=== PATIENT | female | born 1960 | race Caucasian/White ===

== ENCOUNTER → 2019-12-09 08:04 | Outpatient (BNVA) | payer SELFPAY | PROVIDERS: Visit Provider Internal Medicine | DX: Z76.89 Persons encountering health services in other specified circumstances (principal) ==

== ENCOUNTER 2021-09-09 17:25 | Inpatient (IN) | payer OTHER, SELFPAY ==
--- NOTE | ~2021-09-09 | CT_ITS ---
EXAMINATION: CT ABDOMEN AND PELVIS WITHOUT CONTRAST CLINICAL INFORMATION: Left-sided abdominal pain COMPARISON: None TECHNIQUE: Multidetector volumetric imaging was performed from the superior aspect of the liver through the pubic symphysis. Sagittal and coronal reformatted images were obtained on the technologist's workstation. This CT examination was performed using dose optimization techniques as appropriate, variously including the following: *Automated exposure control *Adjustment of mA and/or kV according to patient size (this includes techniques or standardized protocols for targeted exams where dose is matched to indication/reason for exam; i.e. extremities or head) *Use of iterative reconstruction technique DLP: 1299 mGy-cm FINDINGS: LUNG BASES: The visualized lung bases are unremarkable. LIVER, GALLBLADDER, AND BILIARY TREE: The liver is normal in size, shape, and attenuation. No focal hepatic lesion or biliary ductal dilatation is present. Minimal hypoattenuation in the gallbladder lumen. This could represent small stones. No wall thickening or adjacent inflammation. PANCREAS: Unremarkable. SPLEEN: Unremarkable. ADRENAL GLANDS: Unremarkable. KIDNEYS AND URETERS: The kidneys are normal in size, shape, and attenuation. There is mild left hydronephrosis. There is perinephric stranding. There is a 0.4 cm calculus in the left ureteropelvic junction, 15 cm from the posterior axillary line. No right-sided calculi. The ureters are decompressed. BLADDER: Decompressed with no gross abnormality. GASTROINTESTINAL TRACT: Postsurgical changes of gastric sleeve. Normal caliber small bowel. No obstruction. Normal appendix. No colonic wall thickening or inflammation. No free air or free fluid. ABDOMINAL WALL: No significant hernia is appreciated. LYMPH NODES: Normal. VASCULAR: Normal caliber aorta with mild atherosclerotic calcification. PELVIC VISCERA: The uterus and adnexa are unremarkable. OSSEOUS STRUCTURES: No acute or suspicious osseous abnormality. Mild degenerative changes throughout the spine. Vacuum disc phenomenon at L5-S1. CT/CT abdomen pelvis wo con IMPRESSION: Mild left hydronephrosis with a 0.4 cm calculus at the left ureteropelvic junction. Likely small stones in the gallbladder lumen. Fleischner guidelines were followed.
[2021-09-09 17:32] VITALS: BP 156/70; PULSE 73; RESP 18; TEMP 37; O2SAT 97; BMI 41.9
[2021-09-09 19:05] LABS: Basophils Absolute Auto 0.1 X10*3/uL (0.0-0.2); Basophils Percent Auto 0.4 % (0-2); Eosinophils Percent Auto 0.1 % (0-4); Hematocrit 42.9 % (37.0-47.0); Hemoglobin 14.4 g/dl (12.0-16.0); Imm Gran Abs Auto 0.06 X10*3/uL (0.00-0.03); Imm Gran Pct Auto 0.4 % (0.0-0.4); Lymphocytes Absolute Auto 0.4 X10*3/uL (1.2-4.9); Lymphocytes Percent Auto 2.5 % (20-40); MANUAL DIFF FLAG SCAN; Mean Corpuscular HGB Conc 33.6 g/dl (31.0-35.0); Mean Corpuscular Hemoglobin 31.6 pg (27.0-33.0); Mean Corpuscular Volume 94.3 fL (80.0-98.0); Mean Platelet Volume 10.3 fL (9.4-12.3); Monocytes Absolute Auto 0.2 X10*3/uL (0.1-1.2); Monocytes Percent Auto 1.7 % (2-11); Neutrophils Absolute Auto 13.2 x10*3/uL (2.0-8.3); Neutrophils Percent Auto 94.9 % (45-73); Platelet Count 131 X10*3/uL (160-400); Red Blood Count 4.55 X10*6/uL (4.20-5.50); Red Cell Distribution Width 12.7 % (11.0-16.0); SCAN SMEAR FLAG 1; White Blood Count 13.9 X10*3/uL (4.8-10.8)
[2021-09-09 19:25] LABS: Alanine Aminotransferase 20 U/L (0-31); Alkaline Phosphatase 115 U/L (39-117); Anion Gap 14 (12-20); Aspartate Amino Transferase 27 U/L (5-31); Bilirubin Total 1.5 mg/dL (0.0-1.0); Blood Urea Nitrogen 19 mg/dL (9-16); Calcium 9.2 mg/dL (8.4-10.2); Carbon Dioxide 27 mmol/L (22-29); Chloride 104 mmol/L (96-108); Creatinine Clr Calc Pharmacy 61.2; Estimated Glomerular Filt Rate 43; Glucose Random 93 mg/dL (60-115); Lipase 7 U/L (8-78); Potassium 4.5 mmol/L (3.3-5.1); Sodium 140 mmol/L (135-145); Total Protein 6.5 g/dL (6.5-8.0)
[2021-09-09 19:31] LABS: SLIDE REVIEW VERIFIED
[2021-09-09 20:26] LABS: Appearance Urine CLOUDY; Color Urine DK YELLOW; Glucose Urine UA NEG (NEG); Leukocyte Esterase Urine 2+ (NEG); Nitrite Urine POS (NEG); Specific Gravity - Urine 1.015 (1.005-1.025); UACC Culture Trigger YES; Urine Blood 3+ (NEG); Urine Ketones 15 MG/DL (NEG); Urine Protein 1+ MG/DL (NEG-TRACE)
[2021-09-09 20:34] LABS: Bacteria Urine 4+ /LPF; Mucus Urine 2+ /LPF; RBC Urine 30-49 /HPF (0); Squamous Epithelial Cell Urine 2+ /LPF; WBC Clumps Urine NOTED; WBC Urine 50-75 /HPF (0-4)
[2021-09-09 21:32] VITALS: BP 122/60; PULSE 80; RESP 18; TEMP 36.5; O2SAT 95
--- NOTE | 2021-09-09 21:56 | ED.ABDPAIN ---
HPI - Abdominal Pain General Chief Complaint: Abdominal Pain Stated Complaint: Abd pain radiating to back Time Seen by Provider: 09/09/21 21:35 Source: patient and family (Sister) Mode of arrival: ambulatory History of Present Illness HPI narrative: 61-year-old female with history of hypertension presents with onset of left-sided abdominal pain since this morning at approximately 07:30 with radiation into the back denies any urinary symptoms but has had associated nausea and chills. Patient states that the pain became so prominent, crampy in nature at 1 point that it prompted her to leave work and she took some Advil and then woke up at 15:00 and continued to feel poorly in decided to come to the emergency room for further evaluation. She denies any history of renal colic or diverticulitis. Related Data Allergies Allergy/AdvReac Type Severity Reaction Status Date / Time amoxicillin Allergy Rash Verified 09/09/21 17:32 azithromycin Allergy Rash Verified 09/09/21 17:32 Penicillins [PCN] Allergy Rash Verified 09/09/21 17:32 Review of Systems Review of Systems Pertinent positives and negatives as stated in HPI 10 point review of systems is otherwise negative. PMFSH Past Medical History Source: nursing notes reviewed Medical History High cholesterol HTN (hypertension) Social History Social History Patient Tobacco Use Status: Never used Tobacco Use of substances other than those prescribed or required for medical reasons: No Advance Directives: No Advance Directives Information Provided: Yes Patient : No Physical Exam ED Vital Signs: Vital Signs - 24 hr 09/09/21 17:32 09/09/21 21:32 09/10/21 00:36 Temperature 98.6 F 97.7 F Pulse Rate 73 80 86 Respiratory Rate 18 18 21 H Blood Pressure 156/70 H 122/60 137/84 Pulse Oximetry 97 95 98 Oxygen Delivery Method Room Air Room Air Room Air BMI result Body Mass Index 41.9 VITAL SIGNS: Reviewed. GENERAL: Elevated BMI, Well developed, well nourished, in no acute distress. HEAD: Normocephalic/atraumatic EYES: PERRLA, EOMI EARS: Ext canals without abnormality OROPHARYNX: no oral lesions noted, posterior pharynx clear LUNGS: Normal breath sounds. No adventitious sounds or accessory muscle use. SpO2<97> CARDIOVASCULAR: Regular rate and rhythm without noted murmurs ABDOMEN: Soft, mid abdominal discomfort is maximal without rebound, non-distended with bowel sounds, no CVA tenderness. MUSCULOSKELETAL: No tenderness, deformities, or effusions noted on gross inspection. EXTREMITIES: No cyanosis, clubbing or edema. SKIN: Inspection of the skin reveals no rashes NEUROLOGIC: Alert and oriented x 4. Strength and sensation to light touch were grossly intact x 4. Course Course Course Narrative: 0: 61-year-old female with history and clinical presentation suggestive of possible renal colic, pyelonephritis, diverticulitis and lower clinical suspicion for SBO. Review of all investigations consistent with mild hydronephrosis with 3 mm stone and stranding around the left kidney. On re-evaluation patient states that her pain really has not improved and she is still mildly nauseous. She will receive additional pain medication as well as Flomax and re-evaluate. On re-evaluation patient continues to pain, feels unwell, with chills and will be admitted. This case was discussed with the on-call urologist in also discussed with the inpatient hospitalist who accepts admission. MDM - Abdominal Pain Lab Data Result diagrams: 09/09/21 18:53 09/09/21 18:52 Labs: Lab Results 09/09/21 09/09/21 09/09/21 Range/Units 18:52 18:53 20:19 WBC 13.9 H (4.8-10.8) X10*3/uL RBC 4.55 (4.20-5.50) X10*6/uL Hgb 14.4 (12.0-16.0) g/dl Hct 42.9 (37.0-47.0) % MCV 94.3 (80.0-98.0) fL MCH 31.6 (27.0-33.0) pg MCHC 33.6 (31.0-35.0) g/dl RDW 12.7 (11.0-16.0) % Plt Count 131 L (160-400) X10*3/uL MPV 10.3 (9.4-12.3) fL Immature Gran % (Auto) 0.4 (0.0-0.4) % Neut % (Auto) 94.9 H (45-73) % Lymph % (Auto) 2.5 L (20-40) % [place] % (Auto) 1.7 L (2-11) % Eos % (Auto) 0.1 (0-4) % Baso % (Auto) 0.4 (0-2) % Lymph # (Auto) 0.4 L (1.2-4.9) X10*3/uL [place] # (Auto) 0.2 (0.1-1.2) X10*3/uL Eos # (Auto) 0.0 (0.0-0.4) X10*3/uL Baso # (Auto) 0.1 (0.0-0.2) X10*3/uL Abs Immat Gran (auto) 0.06 H (0.00-0.03) X10*3/uL Absolute Neuts (auto) 13.2 H (2.0-8.3) x10*3/uL Absolute Nucleated RBC 0.000 (0.0-0.012) X10*3/uL Nucleated RBC % (auto) 0.0 (0.0-0.2) /100WBC Smear Tech's Comments VERIFIED Sodium 140 (135-145) mmol/L Potassium 4.5 (3.3-5.1) mmol/L Chloride 104 (96-108) mmol/L Carbon Dioxide 27 (22-29) mmol/L Anion Gap 14 (12-20) BUN 19 H (9-16) mg/dL Creatinine 1.26 (0.5-1.4) mg/dL Estim Creat Clear Calc 61.2 Estimated GFR 43 Random Glucose 93 (60-115) mg/dL Lactic Acid (0.5-2.0) mmol/L Calcium 9.2 (8.4-10.2) mg/dL Total Bilirubin 1.5 H (0.0-1.0) mg/dL AST 27 (5-31) U/L ALT 20 (0-31) U/L Alkaline Phosphatase 115 (39-117) U/L Total Protein 6.5 (6.5-8.0) g/dL Albumin 4.0 (3.5-5.0) g/dL Lipase 7 L (8-78) U/L Urine Color DK YELLOW Urine Appearance CLOUDY Urine pH 8.0 (5.0-8.0) Ur Specific [place] 1.015 (1.005-1.025) Urine Protein 1+ H (NEG-TRACE) MG/DL Urine Glucose (UA) NEG (NEG) MG/DL Urine Ketones 15 (NEG) MG/DL Urine Blood 3+ H (NEG) Urine Nitrite POS H (NEG) Ur Leukocyte Esterase 2+ H (NEG) Urine RBC 30-49 H (0) /HPF Urine WBC 50-75 H (0-4) /HPF Urine WBC Clumps NOTED Ur Squamous Epith Cells 2+ /LPF Urine Bacteria 4+ /LPF Urine Mucus 2+ /LPF 09/09/21 Range/Units 22:03 WBC (4.8-10.8) X10*3/uL RBC (4.20-5.50) X10*6/uL Hgb (12.0-16.0) g/dl Hct (37.0-47.0) % MCV (80.0-98.0) fL MCH (27.0-33.0) pg MCHC (31.0-35.0) g/dl RDW (11.0-16.0) % Plt Count (160-400) X10*3/uL MPV (9.4-12.3) fL Immature Gran % (Auto) (0.0-0.4) % Neut % (Auto) (45-73) % Lymph % (Auto) (20-40) % [place] % (Auto) (2-11) % Eos % (Auto) (0-4) % Baso % (Auto) (0-2) % Lymph # (Auto) (1.2-4.9) X10*3/uL [place] # (Auto) (0.1-1.2) X10*3/uL Eos # (Auto) (0.0-0.4) X10*3/uL Baso # (Auto) (0.0-0.2) X10*3/uL Abs Immat Gran (auto) (0.00-0.03) X10*3/uL Absolute Neuts (auto) (2.0-8.3) x10*3/uL Absolute Nucleated RBC (0.0-0.012) X10*3/uL Nucleated RBC % (auto) (0.0-0.2) /100WBC Smear Tech's Comments Sodium (135-145) mmol/L Potassium (3.3-5.1) mmol/L Chloride (96-108) mmol/L Carbon Dioxide (22-29) mmol/L Anion Gap (12-20) BUN (9-16) mg/dL Creatinine (0.5-1.4) mg/dL Estim Creat Clear Calc Estimated GFR Random Glucose (60-115) mg/dL Lactic Acid 2.0 (0.5-2.0) mmol/L Calcium (8.4-10.2) mg/dL Total Bilirubin (0.0-1.0) mg/dL AST (5-31) U/L ALT (0-31) U/L Alkaline Phosphatase (39-117) U/L Total Protein (6.5-8.0) g/dL Albumin (3.5-5.0) g/dL Lipase (8-78) U/L Urine Color Urine Appearance Urine pH (5.0-8.0) Ur Specific [place] (1.005-1.025) Urine Protein (NEG-TRACE) MG/DL Urine Glucose (UA) (NEG) MG/DL Urine Ketones (NEG) MG/DL Urine Blood (NEG) Urine Nitrite (NEG) Ur Leukocyte Esterase (NEG) Urine RBC (0) /HPF Urine WBC (0-4) /HPF Urine WBC Clumps Ur Squamous Epith Cells /LPF Urine Bacteria /LPF Urine Mucus /LPF Discharge Plan Discharge Clinical Impression: Obstructed, uropathy, Pyelonephritis, Hypertension Patient Disposition: Admitted As Inpatient
[2021-09-09] MEDS: Ketorolac Tromethamine 30 MG/ML VIAL 15 MG IVPUSH (22:34)
[2021-09-09] MEDS: 0.9 % Sodium Chloride 1,000 ML 999 ML IV (22:34)
[2021-09-09] MEDS: ondansetron HCL 4 MG/2 ML VIAL IVPUSH (22:35)
[2021-09-09] MEDS: cefTRIAXone sodium 1 GM in 0.9 % Sodium Chloride 50 ML IV (22:35)
[2021-09-10] VITALS (8 sets, daily range): BP systolic 88–143; BP diastolic 41–84; PULSE 58–91; RESP 14–25; TEMP 36.5–37.4; O2SAT 93–98
[2021-09-10] MEDS: fentaNYL citrate/PF 100 MCG/2 ML VIAL 25 MCG IVPUSH (00:08)
[2021-09-10] MEDS: Tamsulosin HCL 0.4 MG CAPSULE PO (00:09)
[2021-09-10 01:19] LABS: COVID-19 Test Negative (Negative)
[2021-09-10] MEDS: HYDROmorphone HCl 0.5 MG/0.5 ML SYRINGE IVPUSH ×4 (01:52→21:48)
--- NOTE | 2021-09-10 02:02 | PM.IMHP ---
History of Present Illness Date of Service: 09/10/21 Chief Complaint: Abdominal pain 61-year-old female with a past medical history of hypertension, hyperlipidemia, obesity presented to the hospital today with a chief complaint of abdominal pain. Patient reports that since morning she started to help abdominal pain located on the left side of the abdomen, radiating to the back; denies any nausea vomiting or diarrhea. Denies any urine frequency urgency or dysuria. Denies any fever chills cough. Denies any chest pain or palpitations. Denies any blood in the urine. Review of all other systems is negative except mentioned above ER course: Per ER team patient noted to have left abdominal tenderness, left-sided CVA tenderness; urinalysis abnormal consistent with UTI, concern for pyelonephritis. CT scan showed renal calculus with mild hydronephrosis; given antibiotics. ER team also spoke to Dr. Porras from Urology, suggested admission to the medicine service. Admitted for further management [facility] Medical History (Updated 10/07/21 @ 13:54 by LUZ Puga) High cholesterol HTN (hypertension) Hypertension Obstructed, uropathy Pyelonephritis Renal and ureteric calculus Severe sepsis Ureteric stone UTI (urinary tract infection) Pertinent family history: Denies any family history of kidney stones Social History Patient Tobacco Use Status: Never used Tobacco service: No Current occupational status: employed Meds Allergies Allergy/AdvReac Type Severity Reaction Status Date / Time amoxicillin Allergy Rash Verified 10/07/21 13:15 azithromycin Allergy Rash Verified 10/07/21 13:15 Penicillins [PCN] Allergy Rash Verified 10/07/21 13:15 hydromorphone [From Dilaudid] AdvReac Chills Verified 10/07/21 13:15 Active Medications: Current Medications Acetaminophen (Acetaminophen 325 Mg Tablet) 650 mg PO Q6H PRN PRN Reason: Pain, Mild (Pain Scale 1-3) Heparin Sodium (Porcine) (Heparin Sodium,Porcine 5,000 Unit/Ml Vial) 5,000 unit SUBCUT Q8H DIMITRIOS Hydromorphone HCl (Hydromorphone Hcl 0.5 Mg/0.5 Ml Syringe) 0.5 mg IVPUSH Q4H PRN; Protocol PRN Reason: Pain, Severe (Pain Scale 7-10) Last Admin: 09/10/21 01:52 Dose: 0.5 mg Ceftriaxone Sodium 1 gm/ (Sodium Chloride) 50 mls @ 100 mls/hr IV Q24H [facility] Melatonin (Melatonin 3 Mg Tablet) 6 mg PO BEDTIME PRN PRN Reason: Insomnia Ondansetron HCl (Ondansetron Hcl 4 Mg/2 Ml Vial) 4 mg IVPUSH Q8H PRN PRN Reason: Nausea and Vomiting Senna (Sennosides 8.6 Mg Tablet) 17.2 mg PO BEDTIME PRN PRN Reason: Constipation Sodium Chloride (0.9 % Sodium Chloride Flush 3 Ml Syringe) 3 ml IVFLUSH QSHIFT [facility] Home Medications Medication Instructions Recorded Confirmed Last Taken Type atenolol 50 mg tablet 1 tab PO DAILY 09/10/21 09/10/21 Unknown History naltrexone 8 mg-bupropion 90 mg 2 tab PO BID 09/10/21 09/10/21 Unknown History tablet,extended release (Contrave) piroxicam 20 mg capsule 1 cap PO DAILY 09/10/21 09/10/21 Unknown History simvastatin 20 mg tablet 1 tab PO DAILY 09/10/21 09/10/21 Unknown History Physical Exam Vital Signs and Narrative: Vital Signs: Last Vital Signs Temp 97.7 F 09/09/21 21:32 Pulse 86 09/10/21 00:36 Resp 21 H 09/10/21 00:36 BP 137/84 09/10/21 00:36 Pulse Ox 98 09/10/21 00:36 O2 Del Method 09/10/21 00:36 BMI result Body Mass Index 41.9 Gen: Appears be in no acute distress. Obese HEENT: NCAT, Moist mucosa. Pulmonary: Vesicular breath sounds, fair air entry CVS: Murmur + Abdomen: BS+, Soft, Nontender; tender in the left flank; left CVA tenderness positive Extremities: Warm well perfused Neuro: Alert and awake. Grossly nonfocal Results Labs CBC and Chem 7: 09/12/21 08:42 09/12/21 08:42 Labs: Laboratory Results - last 24 hr 09/09/21 09/09/21 09/09/21 18:52 18:53 20:19 MCV 94.3 MCH 31.6 MCHC 33.6 RDW 12.7 Plt Count 131 L MPV 10.3 Immature Gran % (Auto) 0.4 Neut % (Auto) 94.9 H Lymph % (Auto) 2.5 L [place] % (Auto) 1.7 L Eos % (Auto) 0.1 Baso % (Auto) 0.4 Lymph # (Auto) 0.4 L [place] # (Auto) 0.2 Eos # (Auto) 0.0 Baso # (Auto) 0.1 Abs Immat Gran (auto) 0.06 H Absolute Neuts (auto) 13.2 H Absolute Nucleated RBC 0.000 Nucleated RBC % (auto) 0.0 Smear Tech's Comments VERIFIED Anion Gap 14 Estim Creat Clear Calc 61.2 Estimated GFR 43 Random Glucose 93 Lactic Acid Calcium 9.2 Total Bilirubin 1.5 H AST 27 ALT 20 Alkaline Phosphatase 115 Total Protein 6.5 Albumin 4.0 Lipase 7 L Urine Color DK YELLOW Urine Appearance CLOUDY Urine pH 8.0 Ur Specific [place] 1.015 Urine Protein 1+ H Urine Glucose (UA) NEG Urine Ketones 15 Urine Blood 3+ H Urine Nitrite POS H Ur Leukocyte Esterase 2+ H Urine RBC 30-49 H Urine WBC 50-75 H Urine WBC Clumps NOTED Ur Squamous Epith Cells 2+ Urine Bacteria 4+ Urine Mucus 2+ COVID-19 (FELIX) COVID-19 Clin Com 09/09/21 09/10/21 22:03 01:01 MCV MCH MCHC RDW Plt Count MPV Immature Gran % (Auto) Neut % (Auto) Lymph % (Auto) [place] % (Auto) Eos % (Auto) Baso % (Auto) Lymph # (Auto) [place] # (Auto) Eos # (Auto) Baso # (Auto) Abs Immat Gran (auto) Absolute Neuts (auto) Absolute Nucleated RBC Nucleated RBC % (auto) Smear Tech's Comments Anion Gap Estim Creat Clear Calc Estimated GFR Random Glucose Lactic Acid 2.0 Calcium Total Bilirubin AST ALT Alkaline Phosphatase Total Protein Albumin Lipase Urine Color Urine Appearance Urine pH Ur Specific [place] Urine Protein Urine Glucose (UA) Urine Ketones Urine Blood Urine Nitrite Ur Leukocyte Esterase Urine RBC Urine WBC Urine WBC Clumps Ur Squamous Epith Cells Urine Bacteria Urine Mucus COVID-19 (FELIX) Negative COVID-19 Clin Com See Note Imaging Radiologist's Impressions: Impressions Abdomen/Pelvis CT 09/09/21 21:51 IMPRESSION: Mild left hydronephrosis with a 0.4 cm calculus at the left ureteropelvic junction. Likely small stones in the gallbladder lumen. Fleischner guidelines were followed. Assessment and Plan (1) Renal and ureteric calculus: Status: Acute (2) UTI (urinary tract infection): Status: Acute Plan 61-year-old female with a past medical history of hypertension, hyperlipidemia, obesity presented to the hospital today with a chief complaint of abdominal pain. Noted to have 0.4 cm left ureteropelvic junction kidney stone; abnormal urinalysis consistent with UTI. Admitted for further management. Left pyelonephritis: Left UVJ stone: Mild left hydronephrosis: Continue ceftriaxone IV Follow-up cultures Pain control urology aware of the patient History of hypertension/hyperlipidemia: Continue home medications Heart murmur: Patient being following with PCP, has been scheduled for echocardiogram as outpatient. Denies any shortness of breath/dyspnea on exertion/palpitations. DVT prophylaxis: Subcu heparin Code status: Full code Quality Stroke Does the patient have a stroke diagnosis?: No VTE Prior VTE?: No VTE Risk Level:: Medical - moderate - high VTE Device Contraindication: Treatment Not Indicated VTE Drug Contraindication: N/A - Med Ordered
[2021-09-10] MEDS: ondansetron HCL 4 MG/2 ML VIAL IVPUSH (04:01)
[2021-09-10] MEDS: Heparin Sodium,Porcine 5,000 UNIT/ML VIAL 5000 UNIT SUBCUT ×2 (06:00→21:51)
--- NOTE | 2021-09-10 06:28 | PC.NURSE ---
Blood pressures running in 80's and 90's systolic and MD aware. No orders given as yet by hospitalist
--- NOTE | 2021-09-10 06:31 | PC.NURSE ---
Hospitalist ordered normal saline bolus
[2021-09-10] MEDS: 0.9 % Sodium Chloride 500 ML IV (06:34)
[2021-09-10 07:38] LABS: Anion Gap 16 (12-20); Blood Urea Nitrogen 22 mg/dL (9-16); Calcium 8.1 mg/dL (8.4-10.2); Carbon Dioxide 22 mmol/L (22-29); Chloride 105 mmol/L (96-108); Creatinine Clr Calc Pharmacy 38.8; Estimated Glomerular Filt Rate 25; Glucose Random 93 mg/dL (60-115); Potassium 4.7 mmol/L (3.3-5.1); Sodium 138 mmol/L (135-145)
[2021-09-10 07:42] LABS: Hematocrit 37.9 % (37.0-47.0); Hemoglobin 12.8 g/dl (12.0-16.0); Mean Corpuscular HGB Conc 33.8 g/dl (31.0-35.0); Mean Corpuscular Hemoglobin 32.2 pg (27.0-33.0); Mean Corpuscular Volume 95.2 fL (80.0-98.0); Mean Platelet Volume 11.2 fL (9.4-12.3); Platelet Count 117 X10*3/uL (160-400); Red Blood Count 3.98 X10*6/uL (4.20-5.50); Red Cell Distribution Width 13.1 % (11.0-16.0); White Blood Count 19.4 X10*3/uL (4.8-10.8)
--- NOTE | 2021-09-10 07:48 | PHA.MEDREC ---
Pharmacy Consult ? Medication Reconciliation Pharmacy has completed the medication reconciliation. Med rec done by alcira, seda zocor and piroxicam. Spoke to Inessa STARR to add to med list. Will adjust if patient states otherwise.
[2021-09-10 08:15] LABS: Band Neutrophils Percent 13 % (3-5); Lymphocytes Absolute Manual 0.2 X10*3/uL (1.2-4.9); Lymphocytes Percent Manual 1 % (20-40); Monocytes Absolute Manual 0.2 X10*3/uL (0.1-1.2); Monocytes Percent Manual 1 % (2-11); Neutrophils Percent Manual 85 % (45-73); Platelet Estimate SLIGHTLY DECREASED (NORMAL); Platelet Morphology Comment NORMAL; RBC Morphology NOTED
[2021-09-10 08:16] LABS: Dohle Bodies PRESENT; Toxic Vacuolation PRESENT
[2021-09-10] MEDS: 0.9 % Sodium Chloride 1,000 ML 999 ML IVCONT ×2 (10:35)
--- NOTE | 2021-09-10 10:55 | HO.PM.IMPN ---
Subjective Subjective Date of Service: 09/10/21 Interval History: seen and examined this AM reports flank pain and malaise +headache denies fevers or chills Review of Systems negative except HPI Physical Exam Vital Signs: Vital Signs: Last Vital Signs Temp 97.8 F 09/10/21 07:05 Pulse 89 09/10/21 07:05 Resp 16 09/10/21 07:05 BP 93/51 L 09/10/21 07:05 Pulse Ox 93 09/10/21 07:05 O2 Del Method 09/10/21 07:05 BMI result Body Mass Index 41.9 Const: Other: General - no acute distress, appears comfortable Cardiovascular - regular rate and rhythm, S1-S2 Lungs - normal respiratory effort, clear to auscultation bilaterally, no wheezing Abdomen - soft, nontender, no rebound or guarding - L cva TTP Extremities - no edema bilaterally Neuro - awake and alert, no focal deficits Objective Data Active Medications Acetaminophen (Acetaminophen 325 Mg Tablet) 650 mg PO Q6H PRN PRN Reason: Pain, Mild (Pain Scale 1-3) Heparin Sodium (Porcine) (Heparin Sodium,Porcine 5,000 Unit/Ml Vial) 5,000 unit SUBCUT Q8H D[facility] Last Admin: 09/10/21 06:00 Dose: 5,000 unit Documented By: IZABEL Hydromorphone HCl (Hydromorphone Hcl 0.5 Mg/0.5 Ml Syringe) 0.5 mg IVPUSH Q4H PRN; Protocol PRN Reason: Pain, Severe (Pain Scale 7-10) Last Admin: 09/10/21 01:52 Dose: 0.5 mg Documented By: KENNY Ceftriaxone Sodium 1 gm/ (Sodium Chloride) 50 mls @ 100 mls/hr IV Q24H [facility] Lactated Ringer's (Lr) 1,000 mls @ 100 mls/hr IVCONT .Q10H [facility] Melatonin (Melatonin 3 Mg Tablet) 6 mg PO BEDTIME PRN PRN Reason: Insomnia Ondansetron HCl (Ondansetron Hcl 4 Mg/2 Ml Vial) 4 mg IVPUSH Q8H PRN PRN Reason: Nausea and Vomiting Last Admin: 09/10/21 04:01 Dose: 4 mg Documented By: ANDRIA Senna (Sennosides 8.6 Mg Tablet) 17.2 mg PO BEDTIME PRN PRN Reason: Constipation Sodium Chloride (0.9 % Sodium Chloride Flush 3 Ml Syringe) 3 ml IVFLUSH QSHIFT D[facility]IT[facility] Last Admin: 09/10/21 10:33 Dose: Not Given Documented By: DORA Non-Admin Reason: IV Running Labs CBC & Chem 7: 09/10/21 06:40 09/10/21 06:40 Labs: Laboratory Results - last 24 hr 09/09/21 09/09/21 09/09/21 18:52 18:53 20:19 MCV 94.3 MCH 31.6 MCHC 33.6 RDW 12.7 Plt Count 131 L MPV 10.3 Immature Gran % (Auto) 0.4 Neut % (Auto) 94.9 H Lymph % (Auto) 2.5 L [place] % (Auto) 1.7 L Eos % (Auto) 0.1 Baso % (Auto) 0.4 Lymph # (Auto) 0.4 L [place] # (Auto) 0.2 Eos # (Auto) 0.0 Baso # (Auto) 0.1 Abs Immat Gran (auto) 0.06 H Absolute Neuts (auto) 13.2 H Absolute Nucleated RBC 0.000 Nucleated RBC % (auto) 0.0 Neutrophils % (Manual) Band Neutrophils % Lymphocytes % (Manual) Monocytes % (Manual) Abs Neuts (Manual) Lymphocytes # (Manual) Monocytes # (Manual) Toxic Vacuolation Dohle Bodies Platelet Estimate Plt Morphology Comment RBC Morphology Smear Tech's Comments VERIFIED Anion Gap 14 Estim Creat Clear Calc 61.2 Estimated GFR 43 Random Glucose 93 Lactic Acid Calcium 9.2 Total Bilirubin 1.5 H AST 27 ALT 20 Alkaline Phosphatase 115 Total Protein 6.5 Albumin 4.0 Lipase 7 L Urine Color DK YELLOW Urine Appearance CLOUDY Urine pH 8.0 Ur Specific [place] 1.015 Urine Protein 1+ H Urine Glucose (UA) NEG Urine Ketones 15 Urine Blood 3+ H Urine Nitrite POS H Ur Leukocyte Esterase 2+ H Urine RBC 30-49 H Urine WBC 50-75 H Urine WBC Clumps NOTED Ur Squamous Epith Cells 2+ Urine Bacteria 4+ Urine Mucus 2+ COVID-19 (FELIX) COVID-19 Clin Com 09/09/21 09/10/21 09/10/21 22:03 01:01 06:40 MCV 95.2 MCH 32.2 MCHC 33.8 RDW 13.1 Plt Count 117 L MPV 11.2 Immature Gran % (Auto) Cancelled Neut % (Auto) Cancelled Lymph % (Auto) Cancelled [place] % (Auto) Cancelled Eos % (Auto) Cancelled Baso % (Auto) Cancelled Lymph # (Auto) Cancelled [place] # (Auto) Cancelled Eos # (Auto) Cancelled Baso # (Auto) Cancelled Abs Immat Gran (auto) Cancelled Absolute Neuts (auto) Cancelled Absolute Nucleated RBC 0.000 Nucleated RBC % (auto) 0.0 Neutrophils % (Manual) 85 H Band Neutrophils % 13 H Lymphocytes % (Manual) 1 L Monocytes % (Manual) 1 L Abs Neuts (Manual) 19.0 H Lymphocytes # (Manual) 0.2 L Monocytes # (Manual) 0.2 Toxic Vacuolation PRESENT Dohle Bodies PRESENT Platelet Estimate SLIGHTLY DECREASED Plt Morphology Comment NORMAL RBC Morphology NOTED Smear Tech's Comments Anion Gap Estim Creat Clear Calc Estimated GFR Random Glucose Lactic Acid 2.0 Calcium Total Bilirubin AST ALT Alkaline Phosphatase Total Protein Albumin Lipase Urine Color Urine Appearance Urine pH Ur Specific [place] Urine Protein Urine Glucose (UA) Urine Ketones Urine Blood Urine Nitrite Ur Leukocyte Esterase Urine RBC Urine WBC Urine WBC Clumps Ur Squamous Epith Cells Urine Bacteria Urine Mucus COVID-19 (FELIX) Negative COVID-19 Clin Com See Note 09/10/21 06:40 MCV MCH MCHC RDW Plt Count MPV Immature Gran % (Auto) Neut % (Auto) Lymph % (Auto) [place] % (Auto) Eos % (Auto) Baso % (Auto) Lymph # (Auto) [place] # (Auto) Eos # (Auto) Baso # (Auto) Abs Immat Gran (auto) Absolute Neuts (auto) Absolute Nucleated RBC Nucleated RBC % (auto) Neutrophils % (Manual) Band Neutrophils % Lymphocytes % (Manual) Monocytes % (Manual) Abs Neuts (Manual) Lymphocytes # (Manual) Monocytes # (Manual) Toxic Vacuolation Dohle Bodies Platelet Estimate Plt Morphology Comment RBC Morphology Smear Tech's Comments Anion Gap 16 Estim Creat Clear Calc 38.8 Estimated GFR 25 Random Glucose 93 Lactic Acid Calcium 8.1 L D Total Bilirubin AST ALT Alkaline Phosphatase Total Protein Albumin Lipase Urine Color Urine Appearance Urine pH Ur Specific [place] Urine Protein Urine Glucose (UA) Urine Ketones Urine Blood Urine Nitrite Ur Leukocyte Esterase Urine RBC Urine WBC Urine WBC Clumps Ur Squamous Epith Cells Urine Bacteria Urine Mucus COVID-19 (FELIX) COVID-19 Clin Com Microbiology Microbiology Results: Microbiology 09/09/21 22:11 Blood Culture - Preliminary Blood - Venous Prelim: GNR Gram Stain only 09/09/21 22:03 Blood Culture - Preliminary Blood - Venous Prelim: GNR Gram Stain only Assessment and Plan (1) Severe sepsis: Status: Acute Plan This is a 61 yo F who [place] [facility] [place] of [place] pain and was diagnosed with obstructing stone and UTI. 1. Severe sepsis Met severe sepsis criteria over night -- around 341 AM when she became hypotensive + luekocytosis this AM bp improved, given 2 additional L of IVF, check lactate now Due to obstructing stone and gram negative bacteremia IV ropcehin 2. Gram negative bacteremia due to UTI / obstructing renal stone antibiotics as above 3. Obstructing stone urology consult 4. JOANN due to ATN vs obstructing stone IVF trend SCr 5. history of HTN hold meds Full Code DVT pptx, heparin Quality Stroke Does the patient have a stroke diagnosis?: No VTE Prior VTE?: No VTE Risk Level:: Medical - moderate - high VTE Device Contraindication: Treatment Not Indicated VTE Drug Contraindication: N/A - Med Ordered
--- NOTE | 2021-09-10 11:23 | PM.UROCN ---
History of Present Illness Consult details Consult date: 09/10/21 Narrative: Consulting complaint left proximal ureteric stone with acute kidney insult Lynn Ba is a pleasant female. Presents to emergency room with 25 history of left flank pain associated nausea and low-grade chills. No prior stone CT imaging performed KIDNEYS AND URETERS: The kidneys are normal in size, shape, and attenuation. There is mild left hydronephrosis. There is perinephric stranding. There is a 0.4 cm calculus in the left ureteropelvic junction, 15 cm from the posterior axillary line. No right-sided calculi. The ureters are decompressed Creatinine 1.9 up from 1.1 on admission, WBC 19.4 up from 14. BP 95/60. Pain is relatively well controlled. Antibiotics with ceftriaxone has been given. Recommendation for admission with antibiotics and fluids. If unable to pass stone would recommend intervention Review of Systems Constitutional: Constitutional: Reports as per HPI and Reports no additional constitutional complaints Cardiovascular: Cardiovascular: Reports as per HPI and Reports no additional cardiovascular complaints Respiratory: Respiratory: Reports as per HPI and Reports no additional respiratory complaints Gastrointestinal: Gastrointestinal: Reports as per HPI and Reports no additional gastrointestinal complaints Genitourinary: Genitourinary: Reports as per HPI Musculoskeletal: Musculoskeletal: Reports no additional musculoskeletal complaints and Reports as per HPI Neurologic: Reports system reviewed and no additional complaints, except as documented and Reports as per HPI PMFSH Past Medical History Medical History High cholesterol HTN (hypertension) Social History Social History Patient Tobacco Use Status: Never used Tobacco Use of substances other than those prescribed or required for medical reasons: No Advance Directives: No Advance Directives Information Provided: Yes Patient : No Meds Allergies Allergy/AdvReac Type Severity Reaction Status Date / Time amoxicillin Allergy Rash Verified 09/09/21 17:32 azithromycin Allergy Rash Verified 09/09/21 17:32 Penicillins [PCN] Allergy Rash Verified 09/09/21 17:32 Active Medications: Current Medications Acetaminophen (Acetaminophen 325 Mg Tablet) 650 mg PO Q6H PRN PRN Reason: Pain, Mild (Pain Scale 1-3) Heparin Sodium (Porcine) (Heparin Sodium,Porcine 5,000 Unit/Ml Vial) 5,000 unit SUBCUT Q8H [facility] Last Admin: 09/10/21 06:00 Dose: 5,000 unit Hydromorphone HCl (Hydromorphone Hcl 0.5 Mg/0.5 Ml Syringe) 0.5 mg IVPUSH Q4H PRN; Protocol PRN Reason: Pain, Severe (Pain Scale 7-10) Last Admin: 09/10/21 11:14 Dose: 0.5 mg Ceftriaxone Sodium 1 gm/ (Sodium Chloride) 50 mls @ 100 mls/hr IV Q24H [facility] Lactated Ringer's (Lr) 1,000 mls @ 100 mls/hr IVCONT .Q10H [facility] Melatonin (Melatonin 3 Mg Tablet) 6 mg PO BEDTIME PRN PRN Reason: Insomnia Ondansetron HCl (Ondansetron Hcl 4 Mg/2 Ml Vial) 4 mg IVPUSH Q8H PRN PRN Reason: Nausea and Vomiting Last Admin: 09/10/21 04:01 Dose: 4 mg Senna (Sennosides 8.6 Mg Tablet) 17.2 mg PO BEDTIME PRN PRN Reason: Constipation Sodium Chloride (0.9 % Sodium Chloride Flush 3 Ml Syringe) 3 ml IVFLUSH QSHIFT [facility] Last Admin: 09/10/21 10:33 Dose: Not Given Home Medications Medication Instructions Recorded Confirmed Last Taken Type atenolol 50 mg tablet 1 tab PO DAILY 09/10/21 09/10/21 Unknown History naltrexone 8 mg-bupropion 90 mg 2 tab PO BID 09/10/21 09/10/21 Unknown History tablet,extended release (Contrave) piroxicam 20 mg capsule 1 cap PO DAILY 09/10/21 09/10/21 Unknown History simvastatin 20 mg tablet 1 tab PO DAILY 09/10/21 09/10/21 Unknown History Physical Exam Vital Signs: Vital Signs: Last Vital Signs Temp 97.8 F 09/10/21 07:05 Pulse 89 09/10/21 07:05 Resp 16 09/10/21 07:05 BP 93/51 L 09/10/21 07:05 Pulse Ox 93 09/10/21 07:05 O2 Del Method 09/10/21 07:05 BMI result Body Mass Index 41.9 Const: General: cooperative, healthy appearing, comfortable and no acute distress Orientation/consciousness: patient oriented x3 HEENT: Face and sinus: Yes normal facial exam Mouth: moist mucous membranes Neck: Neck: Yes normal visual inspection, Yes full ROM and Yes trachea midline Chest: Chest palpation & inspection: normal inspection of the chest Resp: Effort & Inspection: normal respiratory effort, able to speak in complete sentences and no respiratory distress GI: Inspection: Yes normal to inspection Back/Spine/Pelvis: Cervical Spine: normal cervical lordosis Thoracic/Lumbar Spine: thoracic and lumbar spine normal to inspection Skin: General skin exam: no rashes or lesions noted Neuro: General: patient oriented x3, tone normal and moves all extremities Extrem: General: Yes normal to inspection and Yes capillary refill normal Results Labs Result diagrams: 09/10/21 06:40 09/10/21 06:40 Labs: Abnormal lab results 09/09/21 09/09/21 09/09/21 Range/Units 18:52 18:53 20:19 WBC 13.9 H (4.8-10.8) X10*3/uL RBC (4.20-5.50) X10*6/uL Plt Count 131 L (160-400) X10*3/uL Neut % (Auto) 94.9 H (45-73) % Lymph % (Auto) 2.5 L (20-40) % [place] % (Auto) 1.7 L (2-11) % Lymph # (Auto) 0.4 L (1.2-4.9) X10*3/uL Abs Immat Gran (auto) 0.06 H (0.00-0.03) X10*3/uL Absolute Neuts (auto) 13.2 H (2.0-8.3) x10*3/uL Neutrophils % (Manual) (45-73) % Band Neutrophils % (3-5) % Lymphocytes % (Manual) (20-40) % Monocytes % (Manual) (2-11) % Abs Neuts (Manual) (2.0-8.3) X10*3/uL Lymphocytes # (Manual) (1.2-4.9) X10*3/uL BUN 19 H (9-16) mg/dL Creatinine (0.5-1.4) mg/dL Calcium (8.4-10.2) mg/dL Total Bilirubin 1.5 H (0.0-1.0) mg/dL Lipase 7 L (8-78) U/L Urine Protein 1+ H (NEG-TRACE) MG/DL Urine Blood 3+ H (NEG) Urine Nitrite POS H (NEG) Ur Leukocyte Esterase 2+ H (NEG) Urine RBC 30-49 H (0) /HPF Urine WBC 50-75 H (0-4) /HPF 09/10/21 09/10/21 Range/Units 06:40 06:40 WBC 19.4 H (4.8-10.8) X10*3/uL RBC 3.98 L (4.20-5.50) X10*6/uL Plt Count 117 L (160-400) X10*3/uL Neut % (Auto) (45-73) % Lymph % (Auto) (20-40) % [place] % (Auto) (2-11) % Lymph # (Auto) (1.2-4.9) X10*3/uL Abs Immat Gran (auto) (0.00-0.03) X10*3/uL Absolute Neuts (auto) (2.0-8.3) x10*3/uL Neutrophils % (Manual) 85 H (45-73) % Band Neutrophils % 13 H (3-5) % Lymphocytes % (Manual) 1 L (20-40) % Monocytes % (Manual) 1 L (2-11) % Abs Neuts (Manual) 19.0 H (2.0-8.3) X10*3/uL Lymphocytes # (Manual) 0.2 L (1.2-4.9) X10*3/uL BUN 22 H (9-16) mg/dL Creatinine 1.99 H (0.5-1.4) mg/dL Calcium 8.1 L D (8.4-10.2) mg/dL Total Bilirubin (0.0-1.0) mg/dL Lipase (8-78) U/L Urine Protein (NEG-TRACE) MG/DL Urine Blood (NEG) Urine Nitrite (NEG) Ur Leukocyte Esterase (NEG) Urine RBC (0) /HPF Urine WBC (0-4) /HPF Short CBC 09/09/21 09/10/21 Range/Units 18:53 06:40 WBC 13.9 H 19.4 H (4.8-10.8) X10*3/uL Hgb 14.4 12.8 (12.0-16.0) g/dl Hct 42.9 37.9 (37.0-47.0) % Plt Count 131 L 117 L (160-400) X10*3/uL BMP 09/09/21 09/10/21 18:52 06:40 Sodium 140 138 Potassium 4.5 4.7 Chloride 104 105 Carbon Dioxide 27 22 BUN 19 H 22 H Creatinine 1.26 1.99 H Calcium 9.2 8.1 L D Liver Function 09/09/21 Range/Units 18:52 Total Bilirubin 1.5 H (0.0-1.0) mg/dL AST 27 (5-31) U/L ALT 20 (0-31) U/L Alkaline Phosphatase 115 (39-117) U/L Albumin 4.0 (3.5-5.0) g/dL Urine 09/09/21 Range/Units 20:19 Urine Color DK YELLOW Urine Appearance CLOUDY Urine pH 8.0 (5.0-8.0) Ur Specific [place] 1.015 (1.005-1.025) Urine Protein 1+ H (NEG-TRACE) MG/DL Urine Glucose (UA) NEG (NEG) MG/DL All other labs normal. Assessment and Plan (1) Pyelonephritis: Status: Acute (2) Obstructed, uropathy: Status: Acute (3) Ureteric stone: Status: Acute Plan Admit with IV antibiotics and fluids Will continue to observe and may require intervention Procedures Date of Service Date of Service: 09/10/21
[2021-09-10 11:46] LABS: Lactic Acid 2.7 mmol/L (0.5-2.0)
[2021-09-10 13:24] LABS: Reflex Lactate? Lactic Acid Added
[2021-09-10 14:06] LABS: ~Lactic Acid-LAB USE ONLY 2.1 mmol/L (0.5-2.0)
[2021-09-10 15:40] LABS: Reflex Lactate? 2 Y
[2021-09-10] MEDS: Lactated Ringers 1,000 ML 100 ML IVCONT (15:46)
[2021-09-10 16:09] LABS: ~Lactic Acid-LAB USE ONLY 1.6 mmol/L (0.5-2.0)
--- NOTE | 2021-09-10 18:46 | PC.NURSE ---
pt ambulated to bathroom. collected urine. strained , found small amount of sediment.
[2021-09-10] MEDS: Acetaminophen 325 MG TABLET 650 MG PO (19:48)
[2021-09-10] MEDS: Melatonin 3 MG TABLET 6 MG PO (21:47)
[2021-09-11 00:41] VITALS: BP 119/62; PULSE 76; RESP 16; TEMP 36.7; O2SAT 93
[2021-09-11] MEDS: Lactated Ringers 1,000 ML 100 ML IVCONT ×2 (00:46→07:51)
[2021-09-11] MEDS: Acetaminophen 325 MG TABLET 650 MG PO ×3 (05:09→22:14)
[2021-09-11] MEDS: Heparin Sodium,Porcine 5,000 UNIT/ML VIAL 5000 UNIT SUBCUT ×2 (05:10→22:14)
[2021-09-11 05:17] VITALS: BP 123/43; PULSE 62; RESP 18; O2SAT 95
[2021-09-11] MEDS: HYDROmorphone HCl 0.5 MG/0.5 ML SYRINGE IVPUSH (05:18)
[2021-09-11 06:03] VITALS: TEMP 36.4
--- NOTE | 2021-09-11 06:08 | PC.NURSE ---
Addendum entered by Naomy Fulton RN 09/11/21 06:25: 0618: Patient reports feeling better, and shivering has subsided. Will monitor. Original Note: Patient requested Dilaudid 0.5mg IV push for pain and 30 minutes after being given the medication she reports extreme chills and feeling this way after the shot last time . Vitals were rechecked and stable. Patient provided warm blankets and monitored closely. Dr Cardenas notified.
--- NOTE | 2021-09-11 07:26 | PC.NURSE ---
Assumed care of this pt. at 0700. Report from Naomy Miguel RN
[2021-09-11] MEDS: 0.9 % Sodium Chloride Flush 3 ML SYRINGE IVFLUSH ×3 (07:51→22:13)
[2021-09-11 08:17] LABS: Hematocrit 38.5 % (37.0-47.0); Hemoglobin 12.7 g/dl (12.0-16.0); Mean Corpuscular Hemoglobin 31.1 pg (27.0-33.0); Mean Corpuscular Volume 94.4 fL (80.0-98.0); Mean Platelet Volume 10.9 fL (9.4-12.3); Red Blood Count 4.08 X10*6/uL (4.20-5.50); Red Cell Distribution Width 13.1 % (11.0-16.0); White Blood Count 8.4 X10*3/uL (4.8-10.8)
[2021-09-11 08:23] LABS: Platelet Count 89 X10*3/uL (160-400)
[2021-09-11 08:31] LABS: Anion Gap 12 (12-20); Blood Urea Nitrogen 25 mg/dL (9-16); Calcium 7.8 mg/dL (8.4-10.2); Carbon Dioxide 22 mmol/L (22-29); Chloride 107 mmol/L (96-108); Creatinine Clr Calc Pharmacy 51.1; Estimated Glomerular Filt Rate 35; Glucose Random 91 mg/dL (60-115); Potassium 4.4 mmol/L (3.3-5.1); Sodium 137 mmol/L (135-145)
--- NOTE | 2021-09-11 10:05 | MHC.CM.PN ---
Met with patient in regards to discharge planning. Patient lives with her sister, ambulates independently and had no services prior to coming to the hospital. No services anticiapted to be needed because patient is not homebound. PCP verified. Patient received 3 Moderna vaccines. HCP completed, signed and witnessed. Original given to patient. Copy placed in chart. Patient's sister will transport her home when medically stable. Continue to monitor for d/c needs.
[2021-09-11 10:11] VITALS: BP 137/66; PULSE 80; RESP 20; TEMP 36.6; O2SAT 94
--- NOTE | 2021-09-11 10:12 | PC.NURSE ---
Pt resting in hospital bed. C/o pain in her abdomen and flanks. awaiting PRN pain med order to be changed. pt okay with plan. Pt unsure if she has passed the stone yet. stating that she had a lot of sediment in her urine this AM. callbell and belongings within reach. awaiting change in med orders.
--- NOTE | 2021-09-11 10:32 | HO.PM.IMPN ---
Subjective Subjective Date of Service: 09/11/21 Interval History: seen and examined this AM felt chills with admin of dilaudid flank pain still in the same location denies fevers Review of Systems negative except HPI Physical Exam Vital Signs: Vital Signs: Last Vital Signs Temp 97.8 F 09/11/21 10:11 Pulse 80 09/11/21 10:11 Resp 20 09/11/21 10:11 BP 137/66 09/11/21 10:11 Pulse Ox 94 09/11/21 10:11 O2 Del Method 09/11/21 10:11 BMI result Body Mass Index 41.9 Const: Other: General - no acute distress, appears comfortable Cardiovascular - regular rate and rhythm, S1-S2 Lungs - normal respiratory effort, clear to auscultation bilaterally, no wheezing Abdomen - soft, nontender, no rebound or guarding - L cva TTP Extremities - no edema bilaterally Neuro - awake and alert, no focal deficits Objective Data Active Medications Acetaminophen (Acetaminophen 325 Mg Tablet) 650 mg PO Q6H PRN PRN Reason: Pain, Mild (Pain Scale 1-3) Last Admin: 09/11/21 05:09 Dose: 650 mg Documented By: LEON Heparin Sodium (Porcine) (Heparin Sodium,Porcine 5,000 Unit/Ml Vial) 5,000 unit SUBCUT Q8H [facility] Last Admin: 09/11/21 05:10 Dose: 5,000 unit Documented By: LEON Ceftriaxone Sodium 1 gm/ (Sodium Chloride) 50 mls @ 100 mls/hr IV Q24H [facility] Melatonin (Melatonin 3 Mg Tablet) 6 mg PO BEDTIME PRN PRN Reason: Insomnia Last Admin: 09/10/21 21:47 Dose: 6 mg Documented By: BIJAN Morphine Sulfate (Morphine Sulfate 2 Mg/Ml Cartridge) 2 mg IVPUSH Q4H PRN; Protocol PRN Reason: Pain, Severe (Pain Scale 7-10) Ondansetron HCl (Ondansetron Hcl 4 Mg/2 Ml Vial) 4 mg IVPUSH Q8H PRN PRN Reason: Nausea and Vomiting Last Admin: 09/10/21 04:01 Dose: 4 mg Documented By: ANDRIA Senna (Sennosides 8.6 Mg Tablet) 17.2 mg PO BEDTIME PRN PRN Reason: Constipation Sodium Chloride (0.9 % Sodium Chloride Flush 3 Ml Syringe) 3 ml IVFLUSH QSHIFT [facility] Last Admin: 09/11/21 07:51 Dose: 3 ml Documented By: MORELIA Labs CBC & Chem 7: 09/11/21 08:04 09/11/21 08:04 Labs: Laboratory Results - last 24 hr 09/10/21 09/10/21 09/10/21 11:17 13:34 15:51 MCV MCH MCHC RDW Plt Count MPV Absolute Nucleated RBC Nucleated RBC % (auto) Anion Gap Estim Creat Clear Calc Estimated GFR Random Glucose Lactic Acid 2.7 H* Lactic Acid F/U @ 2Hr 2.1 H* Lactic Acid F/U @ 4Hr 1.6 Calcium 09/11/21 09/11/21 08:04 08:04 MCV 94.4 MCH 31.1 MCHC 33.0 RDW 13.1 Plt Count 89 L MPV 10.9 Absolute Nucleated RBC 0.000 Nucleated RBC % (auto) 0.0 Anion Gap 12 Estim Creat Clear Calc 51.1 Estimated GFR 35 Random Glucose 91 Lactic Acid Lactic Acid F/U @ 2Hr Lactic Acid F/U @ 4Hr Calcium 7.8 L Microbiology Microbiology Results: Microbiology 09/09/21 22:11 Blood Culture - Preliminary Blood - Venous Gram negative kojo 09/09/21 22:03 Blood Culture - Preliminary Blood - Venous Gram negative kojo 09/09/21 20:19 Urine Culture - Preliminary Urine clean catch - Urine adams top Gram negative kojo Assessment and Plan (1) Severe sepsis: Status: Acute Plan This is a 61 yo F who [place] [facility] [facility] [place] of [place] pain and was diagnosed with obstructing stone and UTI. 1. Severe sepsis due to #2 improving f/u cultures continue rocephin 2. Gram negative bacteremia due to UTI / obstructing renal stone antibiotics as above 3. Obstructing stone urology consult -- plan for conservative mgmt for now pain control -- change to morphine 4. JOANN due to ATN vs obstructing stone IVF improving 5. history of HTN bp improving slowly if stable, might restart meds tomorrow Full Code DVT pptx, heparin pt requires continued hospitalization due to on going treamtent for bacteremia which has not been idenfitied yet. additionally, her stone has not yet passed and she is requiring multiple doses of IV analgesics. Quality Stroke Does the patient have a stroke diagnosis?: No VTE Prior VTE?: No VTE Risk Level:: Medical - moderate - high VTE Device Contraindication: Treatment Not Indicated VTE Drug Contraindication: N/A - Med Ordered
[2021-09-11] MEDS: Morphine Sulfate 2 MG/ML CARTRIDGE IVPUSH (10:51)
[2021-09-11 16:37] VITALS: BP 135/69; PULSE 64; RESP 14; TEMP 36.3; O2SAT 95
[2021-09-11] MEDS: cefTRIAXone sodium 1 GM in 0.9 % Sodium Chloride 50 ML IV (22:13)
[2021-09-11] MEDS: Melatonin 3 MG TABLET 6 MG PO (22:14)
[2021-09-12] MEDS: Acetaminophen 325 MG TABLET 650 MG PO (05:41)
[2021-09-12] MEDS: Heparin Sodium,Porcine 5,000 UNIT/ML VIAL 5000 UNIT SUBCUT (05:42)
--- NOTE | 2021-09-12 05:45 | PC.NURSE ---
pt medicated per May. pt a&o, no chest pain . Will continue to monitor.
[2021-09-12 07:06] VITALS: BP 152/78; PULSE 61; RESP 17; TEMP 36.1; O2SAT 94
[2021-09-12 09:00] LABS: Hematocrit 36.9 % (37.0-47.0); Hemoglobin 12.2 g/dl (12.0-16.0); Mean Corpuscular HGB Conc 33.1 g/dl (31.0-35.0); Mean Corpuscular Hemoglobin 31.1 pg (27.0-33.0); Mean Corpuscular Volume 94.1 fL (80.0-98.0); Platelet Count 81 X10*3/uL (160-400); Red Blood Count 3.92 X10*6/uL (4.20-5.50); White Blood Count 10.9 X10*3/uL (4.8-10.8)
[2021-09-12 09:18] LABS: Anion Gap 9 (12-20); Blood Urea Nitrogen 18 mg/dL (9-16); Calcium 8.3 mg/dL (8.4-10.2); Carbon Dioxide 27 mmol/L (22-29); Chloride 107 mmol/L (96-108); Creatinine Clr Calc Pharmacy 85.7; Estimated Glomerular Filt Rate > 60; Glucose Random 96 mg/dL (60-115); Potassium 4.3 mmol/L (3.3-5.1); Sodium 139 mmol/L (135-145)
[2021-09-12 11:41] VITALS: BP 179/86; PULSE 64; RESP 13; TEMP 37.1; O2SAT 96
--- NOTE | 2021-09-12 11:43 | MHC.CM.PN ---
Per Rounds discussion, Patient is not yet medically cleared for dc r/t Kidney stone that may require a procedure; Home is the goal and CM will continue to follow.
--- NOTE | 2021-09-12 12:35 | PM.UROPN ---
Subjective Subjective Date of Service: 09/12/21 Interval history: creatinine normalized White count normalized highly likely stone has passed She would like to be discharged Follow-up in our office in 2-4 weeks with ultrasound Physical Exam Vital Signs: Vital Signs: Last Vital Signs Temp 98.7 F 09/12/21 11:41 Pulse 64 09/12/21 11:41 Resp 13 09/12/21 11:41 BP 179/86 H 09/12/21 11:41 Pulse Ox 96 09/12/21 11:41 O2 Del Method 09/12/21 11:41 BMI result Body Mass Index 41.9 Const: General: cooperative, healthy appearing, comfortable and no acute distress Orientation/consciousness: patient oriented x3 HEENT: Face and sinus: Yes normal facial exam Mouth: moist mucous membranes Neck: Neck: Yes normal visual inspection, Yes full ROM and Yes trachea midline Chest: Chest palpation & inspection: normal inspection of the chest Resp: Effort & Inspection: normal respiratory effort, able to speak in complete sentences and no respiratory distress GI: Inspection: Yes normal to inspection Back/Spine/Pelvis: Cervical Spine: normal cervical lordosis Thoracic/Lumbar Spine: thoracic and lumbar spine normal to inspection Skin: General skin exam: no rashes or lesions noted Neuro: General: patient oriented x3, tone normal and moves all extremities Extrem: General: Yes normal to inspection and Yes capillary refill normal Urology Results Labs CBC & Chem 7: 09/12/21 08:42 09/12/21 08:42 Labs: Laboratory Results - last 24 hr 09/12/21 09/12/21 08:42 08:42 WBC 10.9 H RBC 3.92 L Hgb 12.2 Hct 36.9 L MCV 94.1 MCH 31.1 MCHC 33.1 RDW 13.0 Plt Count 81 L MPV 11.0 Absolute Nucleated RBC 0.000 Nucleated RBC % (auto) 0.0 Sodium 139 Potassium 4.3 Chloride 107 Carbon Dioxide 27 Anion Gap 9 L BUN 18 H Creatinine 0.90 Estim Creat Clear Calc 85.7 Estimated GFR > 60 Random Glucose 96 Calcium 8.3 L D Progress Note: A&P Assessment and plan (1) Ureteric stone: Status: Acute (2) Pyelonephritis: Status: Acute Plan 14 days antibiotics Four week follow-up urology Time Spent With Patient Time: Total time spent is greater than 50% in coordination of care (as documented) at patient's floor/unit and/or counseling patient: Progress Note: Quality Stroke Does the patient have a stroke diagnosis?: No
--- NOTE | 2021-09-12 12:54 | PM.DS ---
DS: Providers Provider Date of Service: 09/12/21 Date of admission: 09/10/21 01:03 Primary care physician: Fab Salguero MD Consults: 09/10/21 01:04 Consult to Urology Routine Consulting Provider: Gulshan Porras Reason for consultation: kidney stone DS: Diagnosis Discharge Diagnosis (1) Ureteric stone: Status: Acute (2) Severe sepsis: Status: Acute (3) JOANN (acute kidney injury): Status: Acute (4) E. coli bacteremia: Status: Acute (5) Hypertension: Status: Acute DS: Summary Hospital Course Hospital Course: HPI: 61-year-old female with a past medical history of hypertension, hyperlipidemia, obesity presented to the hospital today with a chief complaint of abdominal pain.? Patient reports that since morning she started to help abdominal pain located on the left side of the abdomen, radiating to the back; denies any nausea vomiting or diarrhea.? Denies any urine frequency urgency or dysuria.? Denies any fever chills cough.? Denies any chest pain or palpitations.? Denies any blood in the urine.? Review of all other systems is negative except mentioned above ER course: Per ER team patient noted to have left abdominal tenderness, left-sided CVA tenderness; urinalysis abnormal consistent with UTI, concern for pyelonephritis.? CT scan showed renal calculus with mild hydronephrosis; given antibiotics.? ER team also spoke to Dr. Porras from Urology, suggested admission to the medicine service.? Admitted for further management Hospital Course: Patient presented with sudden onset left flank pain and was diagnosed with an obstructing 4 mm kidney stone. She was initiated on IV analgesics, IV fluids. Her UA was suggestive of UTI/pyelonephritis. She was treated with IV ceftriaxone. Her hospital course was complicated by hypotension and severe sepsis which did respond to intravenous fluids. Her blood cultures returned positive for pansensitive E coli as did her urine culture. She was treated conservatively and based off of her resolution of pain and normalization of her renal function there is a high likelihood that she has passed her stone. She is eager for discharge home and would like to avoid any procedures unless absolutely needed. Hence he will be discharged with 2 more weeks of oral cefuroxime 500 mg twice daily. She has been informed that should she have any fevers, chills, return of her pain she needs to return to the emergency room immediately. She is to follow-up with Urology in about 1-2 weeks. Time Spent with Patient Time attestation: Total time spent providing and/or coordinating discharge services: Discharge coordination time: Greater than 30 minutes Quality: Safe Use of Opioids Does Pt have an Active Cancer Diagnosis on the Problem List?: No Quality: Stroke Does the patient have a stroke diagnosis?: No Physical Exam Vital Signs: Vital Signs: Last Vital Signs Temp 98.7 F 09/12/21 11:41 Pulse 64 09/12/21 11:41 Resp 13 09/12/21 11:41 BP 179/86 H 09/12/21 11:41 Pulse Ox 96 09/12/21 11:41 O2 Del Method 09/12/21 11:41 BMI result Body Mass Index 41.9 Const: Other: General - no acute distress, appears comfortable Cardiovascular - regular rate and rhythm, S1-S2 Lungs - normal respiratory effort, clear to auscultation bilaterally, no wheezing Abdomen - soft, nontender, no rebound or guarding;no flank pain Extremities - no edema bilaterally Neuro - awake and alert, no focal deficits DS: Data Data Completed and Pending Labs on day of discharge: Laboratory Results - last 24 hr 09/12/21 09/12/21 08:42 08:42 WBC 10.9 H RBC 3.92 L Hgb 12.2 Hct 36.9 L MCV 94.1 MCH 31.1 MCHC 33.1 RDW 13.0 Plt Count 81 L MPV 11.0 Absolute Nucleated RBC 0.000 Nucleated RBC % (auto) 0.0 Sodium 139 Potassium 4.3 Chloride 107 Carbon Dioxide 27 Anion Gap 9 L BUN 18 H Creatinine 0.90 Estim Creat Clear Calc 85.7 Estimated GFR > 60 Random Glucose 96 Calcium 8.3 L D Discharge Plan Discharge Patient Disposition: Home, Self-Care Discharge Diagnosis: Bacteremia Kidney Stone Referrals: Gulshan Porras MD [Physician] - 1 Week Fab Salguero MD [Primary Care Provider] - 1 Week Discharge Medications: New cefuroxime axetil 500 mg tablet 500 mg PO Q12H Qty: 28 0RF Continued atenolol 50 mg tablet 1 tab PO DAILY Contrave 8-90 mg tablet extended release 2 tab PO BID simvastatin 20 mg tablet 1 tab PO DAILY piroxicam 20 mg capsule 1 cap PO DAILY Discharge Orders: Discharge Order (Routine); Ordered 09/12/21 Ordered By: Pascual Keyes Diet: Advance to usual diet Activity on Discharge: As tolerated Stand Alone Forms: Patient Portal Discharge page, Work/School Release Care Plan Goals: To stay healthy and out of the hospital. Health Concerns: Kidney Stones E. Coli bacteremia JOANN Plan of Treatment: Take ceftin for 2 more weeks if you have fevers, chills, or recurrent pain, return to the ED f/u with Urology () in 1-2 weeks Assessment: see d/c summary
--- NOTE | 2021-09-12 13:02 | MHC.CM.PN ---
Patient has been medically cleared for dc to home today, self care.
== END 2021-09-12 17:01 | disposition home or self-care (01) | DRG 720 ==
LOC: HO.ED 09-10 01:05 → HO.EDOVER 09-10 01:08 → HO.IMC 09-12 07:30 → HO.EDOVER 09-12 13:15
PROVIDERS: Admitting Provider Hospitalist; Emergency Provider Student in an Organized Health Care Education/Training Program; PCP Internal Medicine; Visit Provider Family Medicine
DX: A41.9 Sepsis, unspecified organism (principal); N13.6 Pyonephrosis; E66.9 Obesity, unspecified; Z68.41 Body mass index [BMI] 40.0-44.9, adult; B96.20 Unspecified Escherichia coli [E. coli] as the cause of diseases classified elsewhere; R65.20 Severe sepsis without septic shock; Z20.822 Contact with and (suspected) exposure to COVID-19; Z88.0 Allergy status to penicillin; Z88.5 Allergy status to narcotic agent; Z79.899 Other long term (current) drug therapy
CPT/HCPCS: 36415; 74176; 80048; 80053; 81001; 83605; 83690; 85007; 85025; 85027; 87040; 87077; 87086; 87088; 87186; 87205; 87635; 96361; 96365; 96375; 99285; J0696; J1170; J1885; J2270; J2405; J3010

== ENCOUNTER 2021-10-07 13:41 | Outpatient (REF) | payer OTHER, SELFPAY | END 2021-10-07 13:42 | disposition home or self-care (01) | LOC: HO.LAB 13:41 | DX: N39.0 Urinary tract infection, site not specified (principal) | CPT/HCPCS: 87086; 87088; 87186 ==

== ENCOUNTER 2021-10-19 07:25 | Day surgery (SDC) | payer OTHER, SELFPAY ==
--- NOTE | 2021-10-18 10:46 | HO.ANESPROP2 ---
Documented by User: Lisa Connor NP 10/18/21 10:48 HPI - Anesthesia Eval Consult details Narrative: 61yo F for Left ESWL No previous ESWL on record [facility] admit 09/2021 with HTN r/t renal stone. Low platelets during admission. Repeat DOS[facility] Active Problems Active Problems: All Active Problems (Updated 10/12/21 @ 16:04 by Sindy Sauceda RN) JOANN (acute kidney injury) (Acute) E. coli bacteremia (Acute) Renal and ureteric calculus (Acute) UTI (urinary tract infection) (Acute) Past Medical History Medical History (Updated 10/12/21 @ 16:04 by Sindy Sauceda RN) Heart murmur High cholesterol HTN (hypertension) Hypertension Obstructed, uropathy FRIDA (obstructive sleep apnea) Pyelonephritis Renal and ureteric calculus Seasonal allergies Severe sepsis Ureteric stone UTI (urinary tract infection) Surgical History Surgical History (Updated 10/12/21 @ 15:54 by Sindy Sauceda RN) History of right knee surgery Hx of gastric bypass Social History Social History Patient Tobacco Use Status: Former Tobacco user Quit Date: 2010 Use of substances other than those prescribed or required for medical reasons: No Are you DNR?: No Advance Directives: No Advance Directives Information Provided: Yes service: No Current occupational status: employed Meds Allergies Allergy/AdvReac Type Severity Reaction Status Date / Time amoxicillin Allergy Rash Verified 10/12/21 15:54 azithromycin Allergy Rash Verified 10/12/21 15:54 Penicillins [PCN] Allergy Rash Verified 10/12/21 15:54 hydromorphone [From Dilaudid] AdvReac Chills Verified 10/12/21 15:54 Home Medications Medication Instructions Recorded Confirmed Last Taken Type atenolol 50 mg tablet 1 tab PO DAILY 09/10/21 10/12/21 Unknown History naltrexone 8 mg-bupropion 90 mg 2 tab PO BID 09/10/21 10/12/21 Unknown History tablet,extended release (Contrave) piroxicam 20 mg capsule 1 cap PO DAILY 09/10/21 10/12/21 Unknown History simvastatin 20 mg tablet 1 tab PO DAILY 09/10/21 10/12/21 Unknown History Exam Exam Date and Time: October 18, 2021 1046 Pertinent Lab Results Pertinent Lab Results: Laboratory Tests 09/12/21 09/12/21 08:42 08:42 WBC 10.9 H Hgb 12.2 Hct 36.9 L Plt Count 81 L Sodium 139 Potassium 4.3 Chloride 107 Carbon Dioxide 27 BUN 18 H Creatinine 0.90 Assessment and Plan Assessment Anesthesia Assessment: Chart Reviewed Documented by User: Wicho Sr MD 10/19/21 09:56 [facility] Past Medical History Medical History (Updated 10/12/21 @ 16:04 by Sindy Sauceda RN) Heart murmur High cholesterol HTN (hypertension) Hypertension Obstructed, uropathy FRIDA (obstructive sleep apnea) Pyelonephritis Renal and ureteric calculus Seasonal allergies Severe sepsis Ureteric stone UTI (urinary tract infection) Family History Family history of problems with anesthesia: No Surgical History Surgical History (Updated 10/12/21 @ 15:54 by Sindy Sauceda RN) History of right knee surgery Hx of gastric bypass History of Problems with Anesthesia: No Social History Social History Patient Tobacco Use Status: Former Tobacco user Quit Date: 2010 Use of substances other than those prescribed or required for medical reasons: No Are you DNR?: No Advance Directives: No Advance Directives Information Provided: Yes service: No Current occupational status: employed Meds Allergies Allergy/AdvReac Type Severity Reaction Status Date / Time amoxicillin Allergy Rash Verified 10/12/21 15:54 azithromycin Allergy Rash Verified 10/12/21 15:54 Penicillins [PCN] Allergy Rash Verified 10/12/21 15:54 hydromorphone [From Dilaudid] AdvReac Chills Verified 10/12/21 15:54 Home Medications Medication Instructions Recorded Confirmed Last Taken Type atenolol 50 mg tablet 1 tab PO DAILY 09/10/21 10/12/21 Unknown History naltrexone 8 mg-bupropion 90 mg 2 tab PO BID 09/10/21 10/12/21 Unknown History tablet,extended release (Contrave) piroxicam 20 mg capsule 1 cap PO DAILY 09/10/21 10/12/21 Unknown History simvastatin 20 mg tablet 1 tab PO DAILY 09/10/21 10/12/21 Unknown History Exam Airway Mallampati Class: II TM Dist: <=3cm Neck ROM: Full Loose/Missing/Broken Teeth: No Heart: ok Lungs: ok Assessment and Plan Assessment Anesthesia Assessment: Anesthesia Plan Discussed and Chart Reviewed Final Anesthetic Review Family History of Problems with Anesthesia: No History of Problems with Anesthesia: No NPO: Yes ASA Class: III Final Preanesthetic Review: No Changes in Pt Med Stat, Meds/Allgs Chart Reviewed, Consent Obtained/Reviewed and Anes Risks/Benef Reviewed Patient Risk: Intermediate Procedure Risk: Low Anesthetic Plan Anesthetic Plan: GA and Agree w/ Assess. and Plan Disposition: Standard PACU
--- NOTE | ~2021-10-19 | XR_ITS ---
EXAMINATION: XR ABDOMEN KUB CLINICAL INDICATION: Left stones. COMPARISON: None TECHNIQUE: AP view of the abdomen. FINDINGS: There is scattered stool and gas seen throughout the colon without distention. The small bowel loops are normal. There is no organomegaly. No radiopaque calculi seen. CT visualized radiopaque calculi left UVJ is not seen on this KUB. There is mild spondylosis dorsal spine. No lytic process. XR/XR KUB IMPRESSION: Mild constipation. No radiopaque calculi seen.
[2021-10-19 08:04] LABS: Hematocrit 39.3 % (37.0-47.0); Hemoglobin 12.9 g/dl (12.0-16.0); Mean Corpuscular HGB Conc 32.8 g/dl (31.0-35.0); Mean Corpuscular Hemoglobin 30.9 pg (27.0-33.0); Mean Corpuscular Volume 94.2 fL (80.0-98.0); Mean Platelet Volume 9.4 fL (9.4-12.3); Platelet Count 269 X10*3/uL (160-400); Red Blood Count 4.17 X10*6/uL (4.20-5.50); Red Cell Distribution Width 12.8 % (11.0-16.0); White Blood Count 18.7 X10*3/uL (4.8-10.8)
[2021-10-19 08:11] VITALS: BP 140/78; PULSE 68; RESP 18; TEMP 35.8; O2SAT 96; BMI 40.5
[2021-10-19] MEDS: Lactated Ringers 1,000 ML 100 ML IVCONT (08:29)
[2021-10-19] MEDS: Acetaminophen 325 MG TABLET 650 MG PO (08:30)
--- NOTE | 2021-10-19 09:32 | MHC.SHP ---
Pre-Procedural Eval Section A Date of Service: 10/19/21 The patient is an INPATIENT: No Changes since office visit: No Cold of Flu in the past 2 weeks, No New Medical Problems, No Changes in Medication and No Patient answered all questions The History & Physical has been completed within 30 days and I have reviewed it.: Yes Section B Chief Complaint: Calculus of kidney Details of Present Illness: left renal stone Allergies: Allergies Allergy/AdvReac Type Severity Reaction Status Date / Time amoxicillin Allergy Rash Verified 10/12/21 15:54 azithromycin Allergy Rash Verified 10/12/21 15:54 Penicillins [PCN] Allergy Rash Verified 10/12/21 15:54 hydromorphone [From Dilaudid] AdvReac Chills Verified 10/12/21 15:54 Plan Diagnosis/Plan: Unchanged (left eswl) I have reviewed the history and physical and performed a pertinent physical examination on my patient. No changes have occurred unless specified.
[2021-10-19 10:37] VITALS: BP 138/75; PULSE 68; RESP 20; TEMP 36.3; O2SAT 94
[2021-10-19 10:42] VITALS: BP 133/72; PULSE 66; RESP 14; O2SAT 95
[2021-10-19 10:47] VITALS: BP 126/66; PULSE 65; RESP 16; O2SAT 96
[2021-10-19 10:52] VITALS: BP 127/54; PULSE 61; RESP 18; TEMP 36.6; O2SAT 98
[2021-10-19] MEDS: Phenazopyridine HCL 100 MG TABLET PO (11:23)
--- NOTE | 2023-04-27 17:41 | W.PM.OPN ---
Operative Note Operative Note Date of Service: 10/19/21 Narrative: PreOperative Diagnosis: Left Renal stones Post Operative Diagnosis: Left Renal stones Procedure: Left ESWL Surgeon: Dr Gulshan Porras Anesthesia: mac/sedation Indications for procedure: The patient understands ESWL may be a staged procedure and subsequent intervention may be required based on imaging after ESWL. Quoted stone clearance rates for a solitary procedure are in the 70-80% range based primarily on stone location. They also understand there is a risk of bleeding to the kidney, infection, damage to adjacent organs, and stone migration following the procedure. - Imaging 5 mm Procedure: After informed consent was verified the patient was brought to the operating room and placed in a supine position. Anesthesia was performed per protocol. Safety pause time-out was performed. Imaging was displayed in the room and laterality confirmed. ESWL was performed. The 1st 500 shocks were performed at 60 hertz. These were performed with increasing power. Once maximum power was reached the rate was increased to 180 hertz. A total of 2500 shocks were given. Targeted imaging with ultrasound/fluoroscopy showed stone smudging suggestive of disintegration. The patient tolerated the procedure well and was transferred to the recovery area upon completion. Post procedure imaging will be organized. There was no evidence for flank discoloration.
== END 2021-10-19 11:49 | disposition home or self-care (01) ==
PROVIDERS: Nurse Practitioner; PCP Internal Medicine; Visit Provider Urology
PROC: (CPT 50590; principal; 2021-10-19 08:10)
DX: N20.2 Calculus of kidney with calculus of ureter (principal); N39.0 Urinary tract infection, site not specified; I10 Essential (primary) hypertension; E78.00 Pure hypercholesterolemia, unspecified; Z88.0 Allergy status to penicillin; Z88.1 Allergy status to other antibiotic agents; Z87.891 Personal history of nicotine dependence
CPT/HCPCS: 50590; 36415; 74018; 85027; J2250; J2405; J3010

== ENCOUNTER → 2021-10-19 07:25 | Outpatient (BNV) | payer OTHER, SELFPAY | PROVIDERS: PCP Internal Medicine; Visit Provider Urology | DX: N20.0 Calculus of kidney (principal) | CPT/HCPCS: 50590 ==

== ENCOUNTER 2021-11-03 14:17 | Outpatient (REF) | payer OTHER, SELFPAY ==
--- NOTE | ~2021-11-03 | US_ITS ---
EXAMINATION: US RETROPERITONEAL LIMITED (RENAL ONLY) CLINICAL INFORMATION: Calculus of kidney with calculus of ureter. COMPARISON: X-Ray abdomen KUB 10/19/2021. CT abdomen and pelvis without contrast 09/09/2021. TECHNIQUE: Real-time imaging of the kidneys. FINDINGS: RIGHT KIDNEY: 9.9 x 5.1 x 6.0 cm (SAG x AP x TRV). The kidney is normal in size, contour, and echogenicity. Renal cortical thickness is normal. No calculi or focal parenchymal lesions. No hydronephrosis. LEFT KIDNEY: 10.3 x 5.7 x 4.9 cm (SAG x AP x TRV). The kidney is normal in size, contour, and echogenicity. Renal cortical thickness is normal. No renal calculi or focal parenchymal lesions. Mild hydronephrosis US/US renal BI IMPRESSION: Mild left hydronephrosis.
== END 2021-11-03 14:18 | disposition home or self-care (01) ==
LOC: HO.HMGCX 14:17
PROVIDERS: PCP Internal Medicine; Visit Provider Urology
DX: N20.2 Calculus of kidney with calculus of ureter (principal)
CPT/HCPCS: 76775

== ENCOUNTER 2022-03-31 15:46 | Outpatient (REF) | payer OTHER, SELFPAY ==
--- NOTE | ~2022-03-31 | US_ITS ---
EXAMINATION: US RETROPERITONEAL LIMITED (RENAL ONLY) CLINICAL INFORMATION: Calculus of kidney with calculus of ureter. COMPARISON: Renal ultrasound 11/03/2021. X-ray KUB 10/19/2021. CT abdomen and pelvis 09/09/2021. TECHNIQUE: Real-time imaging of the kidneys. FINDINGS: RIGHT KIDNEY: 11.0 x 6.7 x 5.4 cm (SAG x AP x TRV). The kidney is normal in size, contour, and echogenicity. Renal cortical thickness is normal. No calculi or focal parenchymal lesions. No hydronephrosis. Multiple echogenic foci without twinkle artifact. LEFT KIDNEY: 10.1 x 4.9 x 4.3 cm (SAG x AP x TRV). The kidney is normal in size, contour, and echogenicity. Renal cortical thickness is normal. No calculi or focal parenchymal lesions. No hydronephrosis. There are multiple echogenic foci seen without twinkle artifact. US/US renal BI IMPRESSION: Bilateral multiple echogenic foci seen without twinkle artifact. No caliectasis or hydronephrosis seen.
== END 2022-03-31 15:47 | disposition home or self-care (01) ==
LOC: HO.US 15:46
PROVIDERS: PCP Internal Medicine; Visit Provider Urology
DX: N20.2 Calculus of kidney with calculus of ureter (principal)
CPT/HCPCS: 76775

== ENCOUNTER → 2022-05-11 10:33 | Outpatient (BNVA) | payer OTHER, SELFPAY | PROVIDERS: PCP Internal Medicine; Visit Provider Nurse Practitioner Family | DX: Z13.89 Encounter for screening for other disorder (principal) ==

== ENCOUNTER 2022-11-13 07:46 | Outpatient (REF) | payer OTHER, SELFPAY ==
--- NOTE | ~2022-11-13 | US_ITS ---
EXAMINATION: US RETROPERITONEAL LIMITED (RENAL ONLY) CLINICAL INFORMATION: Calculus of kidney. COMPARISON: Ultrasound retroperitoneal limited (renal only) 03/31/2022 and 11/03/2021. X-ray abdomen KUB 10/19/2021. CT abdomen and pelvis without contrast 09/09/2021. TECHNIQUE: Real-time imaging of the kidneys. FINDINGS: RIGHT KIDNEY: 9.8 x 5.13 x 5.5 cm (SAG x AP x TRV). The kidney is normal in size, contour, and echogenicity. Renal cortical thickness is normal. No calculi or focal parenchymal lesions. No hydronephrosis. LEFT KIDNEY: 10.9 x 5.3 x 5.0 cm (SAG x AP x TRV). The kidney is normal in size, contour, and echogenicity. Renal cortical thickness is normal. No calculi or focal parenchymal lesions. No hydronephrosis. The previously seen bilateral echogenic foci without twinkle artifact most likely represented vascular artifact rather than stones. US/US renal BI IMPRESSION: No renal calculi are seen.
== END 2022-11-13 07:47 | disposition home or self-care (01) ==
LOC: HO.US 07:46
PROVIDERS: PCP Internal Medicine; Visit Provider Urology
DX: N20.0 Calculus of kidney (principal)
CPT/HCPCS: 76775

== ENCOUNTER 2022-11-20 11:16 | Outpatient (AMB) | payer OTHER, SELFPAY ==
--- NOTE | 2022-11-20 11:21 | A.OFFVIS_ITS ---
Intake Intake Visit Reasons: 6m follow up/US(set) Intake Note: Patient present for follow up nephrolithiasis/renal us (imaging 11/13/22) Urology Medications: none Blood thinner: none Non Destructive Evaluation Specialist Required: No Accompanied by: Self / Same As Patient Allergies amoxicillin Allergy (Verified 11/20/22 11:49) Rash azithromycin Allergy (Verified 11/20/22 11:49) Rash Penicillins [PCN] Allergy (Verified 11/20/22 11:49) Rash hydromorphone [From Dilaudid] Adverse Reaction (Verified 11/20/22 11:49) Chills Medication List - Last Reconciled 11/20/22 by EVELIN Reynoso atenolol 1 tab PO DAILY piroxicam 1 cap PO DAILY simvastatin 1 tab PO DAILY HPI HPI Comments History of Present Illness Details Pia is a pleasant 61-year-old female patient of . She has a past medical history of FRIDA, seasonal allergies, heart murmur, nephrolithiasis, urinary tract infections, hypertension, hypercholesteremia, and pyelonephritis. She presents to the office today for follow-up of her nephrolithiasis. Recent renal imaging results reviewed with the patient today. Bilateral kidneys with no calculi, lesions, and or hydronephrosis noted. When asked she reports to be doing and feeling well. She denies any urinary issues or concerns at this time. She denies urinary urgency, urinary frequency, incontinence, nocturia, hematuria, dysuria, foul smelling urine, changes to urinary stream, flank pain, fever, and or chills. She is happy with her current voiding parameters. When asked she reports to be drinking plenty of water daily In office urinalysis results reviewed with the patient today. [facility] Medical History FRIDA (obstructive sleep apnea) Seasonal allergies Heart murmur Renal and ureteric calculus UTI (urinary tract infection) Ureteric stone Severe sepsis Hypertension Pyelonephritis Obstructed, uropathy High cholesterol HTN (hypertension) Surgical History Hx of gastric bypass History of right knee surgery Social History Patient Tobacco Use Status: Former Tobacco user Quit Date: 2010 service: No Current occupational status: employed Review of Systems Eyes Reports as per HPI ENT Reports no additional complaints Card Reports as per HPI Resp Reports as per HPI GI Reports no additional complaints Reports as per HPI Musc Reports no additional complaints Neuro Reports no additional complaints Psych Reports no additional complaints Endo Reports no additional complaints James/Lymph Reports no additional complaints Aller/Immun Reports no additional complaints Physical Exam Const General: cooperative, healthy appearing, comfortable, no acute distress, well developed, alert and awake Orientation/consciousness: patient oriented x3 Limitations: no limitations HEENT Head: Yes normal to inspection, Yes normocephalic and Yes atraumatic Ears: hearing grossly normal bilaterally Eyes General: appearance normal, both eyes and all related structures Neck Neck: Yes normal visual inspection and Yes trachea midline Chest Chest palpation & inspection: normal inspection of the chest Resp Effort & Inspection: normal respiratory effort and able to speak in complete sentences Cardio Rate: regular rate GI Inspection: Yes normal to inspection General: Yes no CVA tenderness Back/Spine/Pelvis Back: no CVA tenderness Skin General skin exam: no rashes or lesions noted Neuro General: patient oriented x3 Extrem General: Yes normal to inspection Psych Appearance: grossly normal and well kempt Mental Status: mental status grossly normal Speech and movement: Normal speech and movement present and Clear speech present Affect: normal affect Attitude: cooperative Thought process: Normal thought process present Thought content: Normal thought content present Insight: Good insight present (Psych) Judgement: Good judgement present (Psych) Results AMB Urinalysis, Automated UA Leukoctes 0 Jaylen/uL Last Edit by ChargeBee on 11/20/22 11:45 UA Nitrite Last Edit by [employer]ee on 11/20/22 11:45 UA Urobilinogen 0.2 mg/dL Last Edit by [employer] on 11/20/22 11:45 UA Protein 15 mg/dL Last Edit by [employer]ee on 11/20/22 11:45 UA pH 6.0 Last Edit by [employer]ee on 11/20/22 11:45 UA Blood 0 Alan/uL Last Edit by [employer]ee on 11/20/22 11:45 UA Specific [place] 1.020 Last Edit by Charge[employer]ee on 11/20/22 11:45 UA Ketone Negative Last Edit by Amber Liang on 11/20/22 11:45 UA Bilirubin 0 mg/dL Last Edit by Amber Liang on 11/20/22 11:45 UA Glucose 0 mg/dL Last Edit by Amber Liang on 11/20/22 11:45 Results Reviewed Results Reviewed: Laboratory Last Values Urine pH (Auto) 6.0 11/20/22 11:25 Specific [place] (Auto) 1.020 11/20/22 11:25 Urine Protein (Auto) 15 mg/dL 11/20/22 11:25 Glucose (UA)(Auto) 0 mg/dL 11/20/22 11:25 Urine Ketones (Auto) Negative 11/20/22 11:25 Urine Blood (Auto) 0 Alan/uL 11/20/22 11:25 Urine Bilirubin (Auto) 0 mg/dL 11/20/22 11:25 Urine Urobilinogen (Auto) 0.2 mg/dL 11/20/22 11:25 Leukocyte Esterase (Auto) 0 Jaylen/uL 11/20/22 11:25 Date of Service: 11/13/22 EXAMINATION: US RETROPERITONEAL LIMITED (RENAL ONLY) CLINICAL INFORMATION: Calculus of kidney. COMPARISON: Ultrasound retroperitoneal limited (renal only) 03/31/2022 and 11/03/2021. X-ray abdomen KUB 10/19/2021. CT abdomen and pelvis without contrast 09/09/2021. TECHNIQUE: Real-time imaging of the kidneys. FINDINGS: RIGHT KIDNEY: 9.8 x 5.13 x 5.5 cm (SAG x AP x TRV). The kidney is normal in size, contour, and echogenicity. Renal cortical thickness is normal. No calculi or focal parenchymal lesions. No hydronephrosis. LEFT KIDNEY: 10.9 x 5.3 x 5.0 cm (SAG x AP x TRV). The kidney is normal in size, contour, and echogenicity. Renal cortical thickness is normal. No calculi or focal parenchymal lesions. No hydronephrosis. The previously seen bilateral echogenic foci without twinkle artifact most likely represented vascular artifact rather than stones. IMPRESSION: No renal calculi are seen. Assessment & Plan Assessment & Plan (1) UTI (urinary tract infection): Code(s): N39.0 - Urinary tract infection, site not specified (2) Renal and ureteric calculus: Code(s): N20.2 - Calculus of kidney with calculus of ureter Plan In office urinalysis results reviewed with the patient today; as noted above. Recent renal imaging results reviewed with the patient today; as noted above. Discussed, educated, and stressed the importance of drinking plenty of water daily. Patient denies any bothersome urinary issues or concerns at this time. Renal ultrasound in 1 year. Follow-up in 1 year with imaging to be completed prior; or sooner with any issues, concerns, and or questions. Orders: Orders US renal BI 364 Days N20.0 - Calculus of kidney AMB Urinalysis Automated Today Z13.9 - Encounter for screening, unspecified Patient Instructions: The patient had an opportunity to ask questions regarding the treatment plan. All questions were answered. Physical exam, labs, and imaging were discussed and reviewed in detail. As well as risks, benefits, and discussion of treatment choices. No major barriers to understanding were identified. The patient expressed understanding and agreement with the above treatment plan. The patient was made aware they should contact our office by phone for worsening of their current condition, the appearance of new symptoms, or with any questions or concerns. Compliance is encouraged with any medications and follow up testing that is ordered. It is a privilege to be allowed the opportunity to participate in? your urological care.? Again, if you have any questions or concerns If you have any questions or concerns please do not hesitate to contact me. The office is [phone]. This note is constructed using voice recognition software. While every effort has been made to ensure accuracy roof truss machine tender errors may have been included. Yours sincerely, EVELIN Reynoso Coding Level of Care Code Est Pt Level 3 (24312) Diagnoses UTI (urinary tract infection) N39.0 Renal and ureteric calculus N20.2
== END 2022-11-20 11:52 | disposition home or self-care (01) ==
PROVIDERS: PCP Internal Medicine; Visit Provider Nurse Practitioner Family
DX: N39.0 Urinary tract infection, site not specified (principal); N20.2 Calculus of kidney with calculus of ureter; Z13.9 Encounter for screening, unspecified
CPT/HCPCS: 99213

== ENCOUNTER → 2022-11-20 11:16 | Outpatient (BNVA) | payer OTHER, SELFPAY | PROVIDERS: PCP Internal Medicine; Visit Provider Nurse Practitioner Family | DX: N20.2 Calculus of kidney with calculus of ureter (principal); N39.0 Urinary tract infection, site not specified | CPT/HCPCS: 81003 ==

== ENCOUNTER 2023-10-11 07:36 | Outpatient (REF) | payer OTHER, SELFPAY ==
--- NOTE | ~2023-10-11 | US_ITS ---
EXAMINATION: US RETROPERITONEAL LIMITED (RENAL ONLY) CLINICAL INFORMATION: Calculus of kidney. COMPARISON: Renal ultrasound 11/13/2022 and 03/31/2022. X-ray KUB 10/19/2021. CT abdomen and pelvis 09/09/2021. TECHNIQUE: Real-time imaging of the kidneys. Limited visualization due to bowel gas. FINDINGS: RIGHT KIDNEY: 9.7 x 5.7 x 5.4 cm (SAG x AP x TRV). No hydronephrosis. No renal calculi. Renal cortical thickness is normal. Limited visualization. LEFT KIDNEY: 10.0 x 5.2 x 4.5 cm (SAG x AP x TRV). No hydronephrosis. No renal calculi. Renal cortical thickness is normal. Limited visualization. US/US renal BI IMPRESSION: No hydronephrosis. No renal calculi.
== END 2023-10-11 07:37 | disposition home or self-care (01) ==
LOC: HO.US 07:36
PROVIDERS: PCP Internal Medicine; Visit Provider Nurse Practitioner Family
DX: N20.0 Calculus of kidney (principal)
CPT/HCPCS: 76775

== ENCOUNTER 2023-11-21 08:34 | Outpatient (AMB) | payer OTHER, SELFPAY ==
--- NOTE | 2023-11-21 08:49 | A.OFFVIS_ITS ---
Intake Visit Reasons: one year U/S(set) Intake Note: Patient presents today for follow up on Nephrolithiasis and ultrasound results Imaging Completed: 10/11/23 Urology Medications: none Blood thinner: none Press Operator Automatic Required: No Accompanied by: Self / Same As Patient Allergies amoxicillin Allergy (Verified 11/21/23 09:27) Rash azithromycin Allergy (Verified 11/21/23 09:27) Rash Penicillins [PCN] Allergy (Verified 11/21/23 09:27) Rash hydromorphone [From Dilaudid] Adverse Reaction (Verified 11/21/23 09:27) Chills Medication List - Last Reconciled 11/21/23 by GLORIA Reynoso atenolol 1 tab PO DAILY bupropion HCl XL 150 mg PO QAM piroxicam 1 cap PO DAILY semaglutide (weight loss) (Wegovy) 2.4 mg subcut QWEEK simvastatin 1 tab PO DAILY HPI Comments Details: Pia is a pleasant 61-year-old female patient of . She has a past medical history of FRIDA, seasonal allergies, heart murmur, nephrolithiasis, urinary tract infections, hypertension, hypercholesteremia, and pyelonephritis. She presents to the office today for follow-up of her nephrolithiasis. Recent renal imaging results reviewed with the patient today. Bilateral kidneys with no calculi, lesions, and or hydronephrosis noted. When asked she reports to be doing and feeling well. Recent oral surgery and will be undergoing bone graft. She denies any urinary issues or concerns at this time. She denies urinary urgency, urinary frequency, incontinence, nocturia, hematuria, dysuria, foul smelling urine, changes to urinary stream, flank pain, fever, and or chills. She is happy with her current voiding parameters. When asked she reports to be drinking plenty of water daily however, given most recent oral surgery has not been able to. In office urinalysis results reviewed with the patient today. She otherwise offers no other issues or concerns at this time. [facility] Medical History FRIDA (obstructive sleep apnea) Seasonal allergies Heart murmur Renal and ureteric calculus UTI (urinary tract infection) Ureteric stone Severe sepsis Hypertension Pyelonephritis Obstructed, uropathy High cholesterol HTN (hypertension) Surgical History Hx of gastric bypass History of right knee surgery Social History Patient Tobacco Use Status: Former Tobacco user service: No Current occupational status: employed Review of Systems Eyes Reports as per HPI ENT Reports no additional complaints Card Reports as per HPI Resp Reports as per HPI GI Reports no additional complaints Reports as per HPI Musc Reports no additional complaints Neuro Reports no additional complaints Psych Reports no additional complaints Endo Reports no additional complaints James/Lymph Reports no additional complaints Aller/Immun Reports no additional complaints Physical Exam Const General: cooperative, healthy appearing, comfortable, no acute distress, well developed, alert and awake Orientation/consciousness: patient oriented x3 Limitations: no limitations HEENT Head: Yes normal to inspection, Yes normocephalic and Yes atraumatic Ears: hearing grossly normal bilaterally Eyes General: appearance normal, both eyes and all related structures Neck Neck: Yes normal visual inspection and Yes trachea midline Chest Chest palpation & inspection: normal inspection of the chest Resp Effort & Inspection: normal respiratory effort and able to speak in complete sentences Cardio Rate: regular rate GI Inspection: Yes normal to inspection General: Yes no CVA tenderness Back/Spine/Pelvis Back: no CVA tenderness Skin General skin exam: no rashes or lesions noted Neuro General: patient oriented x3 Extrem General: Yes normal to inspection Psych Appearance: grossly normal and well kempt Mental Status: mental status grossly normal Speech and movement: Normal speech and movement present and Clear speech present Affect: normal affect Attitude: cooperative Thought process: Normal thought process present Thought content: Normal thought content present Insight: Good insight present (Psych) Judgement: Good judgement present (Psych) Results AMB Urinalysis, Automated UA Leukoctes 0 Jaylen/uL Last Edit by Amber Liang on 11/21/23 09:16 UA Nitrite Last Edit by Amber Liang on 11/21/23 09:16 UA Urobilinogen 0.2 mg/dL Last Edit by Amber Liang on 11/21/23 09:16 UA Protein 15 mg/dL Last Edit by Amber Liang on 11/21/23 09:16 UA pH 5.5 Last Edit by Amber Liang on 11/21/23 09:16 UA Blood 0 Alan/uL Last Edit by Amber Liang on 11/21/23 09:16 UA Specific [place] 1.025 Last Edit by Amber Liang on 11/21/23 09:16 UA Ketone Last Edit by Amber Liang on 11/21/23 09:16 UA Bilirubin 0 mg/dL Last Edit by Amber Liang on 11/21/23 09:16 UA Glucose 0 mg/dL Last Edit by Amber Liang on 11/21/23 09:16 Results Reviewed Results Reviewed: Laboratory Last Values Urine pH (Auto) 5.5 11/21/23 09:14 Specific [place] (Auto) 1.025 11/21/23 09:14 Urine Protein (Auto) 15 mg/dL 11/21/23 09:14 Glucose (UA)(Auto) 0 mg/dL 11/21/23 09:14 Urine Blood (Auto) 0 Alan/uL 11/21/23 09:14 Urine Bilirubin (Auto) 0 mg/dL 11/21/23 09:14 Urine Urobilinogen (Auto) 0.2 mg/dL 11/21/23 09:14 Leukocyte Esterase (Auto) 0 Jaylen/uL 11/21/23 09:14 Date of Service: 10/11/23 EXAMINATION: US RETROPERITONEAL LIMITED (RENAL ONLY) FINDINGS: RIGHT KIDNEY: 9.7 x 5.7 x 5.4 cm (SAG x AP x TRV). No hydronephrosis. No renal calculi. Renal cortical thickness is normal. Limited visualization. LEFT KIDNEY: 10.0 x 5.2 x 4.5 cm (SAG x AP x TRV). No hydronephrosis. No renal calculi. Renal cortical thickness is normal. Limited visualization. IMPRESSION: No hydronephrosis. No renal calculi. Assessment & Plan Assessment & Plan (1) Renal and ureteric calculus: Code(s): N20.2 - Calculus of kidney with calculus of ureter Category: Medical Plan In office urinalysis results reviewed with the patient today; as noted above. Recent renal imaging results reviewed with the patient today; as noted above. Discussed, educated, and stressed the importance of drinking plenty of water daily. Patient denies any bothersome urinary issues or concerns at this time. Renal ultrasound in 1 year. Follow-up in 1 year with imaging to be completed prior; or sooner with any issues, concerns, and or questions. Orders: Orders AMB Urinalysis Automated Today Z13.9 - Encounter for screening, unspecified US renal BI 1 Year N20.0 - Calculus of kidney Patient Instructions: The patient had an opportunity to ask questions regarding the treatment plan. All questions were answered. Physical exam, labs, and imaging were discussed and reviewed in detail. As well as risks, benefits, and discussion of treatment choices. No major barriers to understanding were identified. The patient expressed understanding and agreement with the above treatment plan. The patient was made aware they should contact our office by phone for worsening of their current condition, the appearance of new symptoms, or with any questions or concerns. Compliance is encouraged with any medications and follow up testing that is ordered. It is a privilege to be allowed the opportunity to participate in? your urological care.? Again, if you have any questions or concerns If you have any questions or concerns please do not hesitate to contact me. The office is [phone]. This note is constructed using voice recognition software. While every effort has been made to ensure accuracy street and building decorator errors may have been included. Yours sincerely, EVELIN Reynoso Coding Level of Care Code Est Pt Level 3 (76079) Diagnoses Renal and ureteric calculus N20.2
== END 2023-11-21 09:27 | disposition home or self-care (01) ==
PROVIDERS: PCP Internal Medicine; Visit Provider Nurse Practitioner Family
DX: N20.2 Calculus of kidney with calculus of ureter (principal); Z13.9 Encounter for screening, unspecified
CPT/HCPCS: 99213

== ENCOUNTER → 2023-11-21 08:34 | Outpatient (BNVA) | payer OTHER, SELFPAY | PROVIDERS: PCP Internal Medicine; Visit Provider Nurse Practitioner Family | DX: N20.2 Calculus of kidney with calculus of ureter (principal) | CPT/HCPCS: 81003 ==

== ENCOUNTER 2024-11-12 13:41 | Outpatient (REF) | payer OTHER, SELFPAY ==
--- NOTE | ~2024-11-12 | US_ITS ---
EXAMINATION: US KIDNEY BILATERAL HISTORY: N20.0 - Calculus of kidney TECHNIQUE: Real-time grayscale ultrasound imaging of the kidneys was performed and images were reviewed. COMPARISON: Comparison is made with the prior examination dated 10/11/2023. FINDINGS: Right kidney: The right kidney measures 10.5 x 5.2 x 5.6 cm. Renal parenchymal echotexture and thickness are normal. There are no masses. There is no hydronephrosis or renal calculi. Left Kidney: The left kidney measures 9.3 x 5.3 x 4.6 cm. Renal parenchymal echotexture and thickness are normal. There are no masses. There is no hydronephrosis or renal calculi. US/US renal BI IMPRESSION: Unremarkable renal ultrasound. Electronically signed by: Manny Hutchinson MD 11/12/2024 03:02 PM EDT
--- OUTSIDE RECORDS SUMMARY | 2024-11-12 16:46 | XMS_ITS | Clinical Summary ---
Author Organization [facility] Address [address] [place] [address] Phone Care Team Providers Care Automatic Lathe Setter Name Role Phone Pcp, Unknown Primary Care Provider Unavailabl e Social History Tobacco Use Types Packs/Day Years Used Date Smoking Tobacco: Never Assessed Education Answer Date Recorded Are you interested in more education? Not on louis e 07/19/2022 Are you concerned about learning? Not on file 07/19/2022 No 07/19/2022 No 07/19/2022 Digital Access Answer Date Recorded No 07/25/2022 No 07/25/2022 No 07/25/2022 Reliable internet access at home? Not on file 07/25/2022 Device with a working camera? Not on file Comments Unknown Sex and Gender Information Value Date Recorded Sex Assigned at Not on file Legal Sex Female 2:47 PM EDT Gender Identity Not on file Sexual Orientation Not on file Plan of Treatment Health Maintenance Due Date Last Done Comments Adult Td,Tdap Booster 1960 LIPID PANEL 1960 DEPRESSION SCREENING 1972 SMOKING Hx and SMOKELESS TOB ACCO SCREENING 1973 HEPATITIS C SCREENING 1978 HIV ONE-TIME SCREENING (18-6 5 YEARS) 1978 PAP SMEAR 1981 MAMMOGRAM 2000 COLOGUARD 2005 COLONOSCOPY 2005 COLORECTAL CANCER SCREENING 2005 FIT TEST 2005 FOBT 2005 SIGMOIDOSCOPY 2005 VIRTUAL COLONOSCOPY 2005 PNEUMOCOCCAL VACCINES (50+ y ears) (1 of 1 - PCV) 2010 ZOSTER VACCINES (1 of 2) 2010 INFLUENZA VACCINE (#1) 2024 COVID-19 VACCINE ( - 2023-2 5 season) 2024 RSV VACCINE (1 - 1-dose 75+ series) 08/25/2035 HEPATITIS A VACCINES Aged Out No long er eligible based on patient's age to complete this topic HIB VACCINES Aged Out No longer eligi ble based on patient's age to complete this topic MENINGOCOCCAL VACCINES (ACWY) Aged Out No longer eligible based on patient's age to complete this topic MENINGOCOCCAL VACCINES (B) Aged Out N o longer eligible based on patient's age to complete this topic Medical Devices Not on file Insurance O O HMO O O O Member Subscriber Plan / Payer (Ef fective 2022-) Name:Pia Tello Relation to Subscriber:Self Name:Pia Tello Payer ID:Not on file Type:[facility] [place] Address: [place] [id number] Care Teams Automatic Lathe Setter Relationship Specialty Start Date End Date Pcp, Unknown PCP - General 07/19/22 Additional Source Comments The information contained in this document represents components of the legal health record. It is not the complete legal health record.[facility]
--- OUTSIDE RECORDS SUMMARY | 2024-11-12 16:46 | XMS_ITS | Patient Health Record ---
Author Organization [facility] Address [address] [place] [address] Care Team Providers Care Corporate Associate Name Role Phone JAMES ARNOLD Unavailable [phone] Allergies Allergen (clinical drug ingredient) Drug/Non Drug Allergy documented on EMR Reaction Allergy Type Onset Date Status hydromorphone Dilaudid vomiting Drug Allergy Act natalya amoxicillin Amoxicillin Unknown Drug Allergy Act natalya erythromycin Erythromycin Unknown Drug Allergy A ctive Penicillin Unknown Drug Allergy Active Results Component Value Reference Range Notes Comp. Metabolic Panel [id number] Reviewed date:10/20/2024 08:26:58 AM Interpretation: Performing Lab:[facility], [address] [place] [address], Phone - [phone], Director - Stephanie Notes/Report: Glucose 83 70-99 mg/dL BUN 15 8-27 mg/dL Creatinine 1.14 0.57-1.00 mg/dL eGFR 54 >59 mL/min/1.73 BUN/Creatinine Ratio 13 12-28 Sodium 141 134-144 mmol/L Potassium 4.1 3.5-5.2 mmol/L Chloride 105 96-106 mmol/L Carbon Dioxide, Total 23 20-29 mmol/L Calcium 8.7 8.7-10.3 mg/dL Protein, Total 5.5 6.0-8.5 g/dL Albumin 3.6 3.9-4.9 g/dL Globulin, Total 1.9 1.5-4.5 g/dL Bilirubin, Total 0.8 0.0-1.2 mg/dL Alkaline Phosphatase 103 44-121 IU/L AST (SGOT) 20 0-40 IU/L ALT (SGPT) 13 0-32 IU/L QuantiFERON-TB Gold Plus-[id number] Reviewed date:10/20/2024 08:27:01 AM Interpretation: Performing Lab:[facility], [address] [facility], Phone - [phone], Director - Stephanie Notes/Report: QuantiFERON Incubation Incubation performed. QuantiFERON-TB Gold Plus Negative Negative No response to M tuberculosis antigens detected. Infection with M tuberculosis is unlikely, but high risk individuals should be considered for additional testing (ATS/IDSA/CDC Clinical Practice Guidelines, 2017). The reference range is an Antigen minus Nil result of <0.35 IU/mL. Chemiluminescence immunoassay methodology QuantiFERON Criteria QuantiFERON-TB Gold Plus is a qualitative indirect test for M tuberculosis infection (including disease) and is intended for use in conjunction with risk assessment, radiography, and other medical and diagnostic evaluations. The QuantiFERON-TB Gold Plus result is determined by subtracting the Nil value from either TB antigen (Ag) value. The Mitogen tube serves as a control for the test. QuantiFERON TB1 Ag Value 0.39 QuantiFERON TB2 Ag Value 0.33 QuantiFERON Nil Value 0.06 QuantiFERON Mitogen Value >10.00 Comp. Metabolic Panel ([id number] Reviewed date:08/25/2024 10:42:38 AM Interpretation: Performing Lab:[facility], [address] [facility], [place], Phone - [phone], Director - Stephanie Notes/Report: Glucose 76 70-99 mg/dL BUN 22 8-27 mg/dL Creatinine 1.24 0.57-1.00 mg/dL eGFR 49 >59 mL/min/1.73 BUN/Creatinine Ratio 18 12-28 Sodium 141 134-144 mmol/L Potassium 4.3 3.5-5.2 mmol/L Chloride 104 96-106 mmol/L Carbon Dioxide, Total 22 20-29 mmol/L Calcium 9.1 8.7-10.3 mg/dL Protein, Total 6.1 6.0-8.5 g/dL Albumin 4.0 3.9-4.9 g/dL Globulin, Total 2.1 1.5-4.5 g/dL Bilirubin, Total 0.9 0.0-1.2 mg/dL Alkaline Phosphatase 102 44-121 IU/L AST (SGOT) 18 0-40 IU/L ALT (SGPT) 15 0-32 IU/L TSH+Free [id number] Reviewed date:08/25/2024 10:43:13 AM Interpretation: Performing Lab:[facility] [place], [address] [place] [address], Phone - [phone], Director - Stephanie Notes/Report: TSH 4.430 0.450-4.500 uIU/mL T4,Free(Direct) 0.92 0.82-1.77 ng/dL Vitamin D, 71-[id number] Reviewed date:08/25/2024 10:43:13 AM Interpretation: Performing Lab:[facility] [place], [address] [place] [address], Phone - [phone], Director - Stephanie Notes/Report: Vitamin D, 25-Hydroxy 81.5 30.0-100.0 ng/mL Vitamin D deficiency has been defined by the [place] of [employer] and an Endocrine Society practice guideline as a level of serum 25-OH vitamin D less than 20 ng/mL (1,2). The Endocrine Society went on to further define vitamin D insufficiency as a level between 21 and 29 ng/mL (2). 1. IOM ([place] of [employer]). 2010. Dietary reference intakes for calcium and D. [place]: The National Academies Press. 2. Alison MF, Jose GUERRERO, Jen MOURA, et al. Evaluation, treatment, and prevention of vitamin D deficiency: an Endocrine Society clinical practice guideline. JCEM. 2010; 96(7):1911-30. Triiodothyronine (T3), Free- [id number] Reviewed date:08/25/2024 10:43:13 AM Interpretation: Performing Lab:[facility] [address], Phone - [phone], Director - Stephanie Notes/Report: Triiodothyronine (T3), Free 2.3 2.0-4.4 pg/mL CBC With Differential/Platel et-[id number] Reviewed date:08/25/2024 10:42:45 AM Interpretation: Performing Lab:[facility] [address], Phone - [phone], Director - Stephanie Notes/Report: WBC 5.3 3.4-10.8 x10E3/uL RBC 4.33 3.77-5.28 x10E6/uL Hemoglobin 13.9 11.1-15.9 g/dL Hematocrit 42.4 34.0-46.6 % MCV 98 79-97 fL MCH 32.1 26.6-33.0 pg MCHC 32.8 31.5-35.7 g/dL RDW 12.2 11.7-15.4 % Platelets 167 150-450 x10E3/uL Neutrophils 61 Not Estab. % Lymphs 24 Not Estab. % Monocytes 9 Not Estab. % Eos 5 Not Estab. % Basos 1 Not Estab. % Neutrophils (Absolute) 3.3 1.4-7.0 x10E3/uL Lymphs (Absolute) 1.3 0.7-3.1 x10E3/uL Monocytes(Absolute) 0.5 0.1-0.9 x10E3/uL Eos (Absolute) 0.2 0.0-0.4 x10E3/uL Baso (Absolute) 0.1 0.0-0.2 x10E3/uL Immature Granulocytes 0 Not Estab. % Immature Grans (Abs) 0.0 0.0-0.1 x10E3/uL Urinalysis, Complete-[id number] Reviewed date:08/25/2024 10:43:13 AM Interpretation: Performing Lab:[facility], [address] [place] [address], Phone - [phone], Director - Stephanie Notes/Report: Specific [place] 1.020 1.005-1.030 pH 6.0 5.0-7.5 Urine-Color Yellow Yellow Appearance Clear Clear WBC Esterase 2+ Negative Protein Trace Negative/Trace Glucose Negative Negative Ketones Negative Negative Occult Blood Negative Negative Bilirubin Negative Negative Urobilinogen,Semi-Qn 0.2 0.2-1.0 mg/dL Nitrite, Urine Negative Negative Microscopic Examination See below: Micr oscopic was indicated and was performed. WBC 11-30 0 - 5 /hpf RBC 0-2 0 - 2 /hpf Epithelial Cells (non renal) 0-10 0 - 10 /hpf Casts None seen None seen /lpf Bacteria None seen None seen/Few Vitamin [id number] Reviewed date:08/25/2024 10:43:13 AM Interpretation: Performing Lab:[facility], [address] [facility], [place], Phone - [phone], Director - Stephanie Notes/Report: Vitamin B12 449 726-6553 pg/mL Hemoglobin [id number] Reviewed date:08/25/2024 10:43:13 AM Interpretation: Performing Lab:[facility], [address] [facility], [place], Phone - [phone], Director - Stephanie Notes/Report: Hemoglobin A1c 4.9 4.8-5.6 % . Prediabetes: 5.7 - 6.4 Diabetes: >6.4 Glycemic control for adults with diabetes: <7.0 Reason For Referral Reason rt knee pain Diagnosis 1 Knee pain (M25.569) Referral Organization [facility] [address] Referring Provider First Name JAMES Referring Provider Last Name CATALINA Referring Provider Speciality Internal M edicine Referred Provider Specialty Orthopedic S urgery Clinical Notes [email or web address] 0 04/28/2024 11:20:46 AM >faxed with [employer] form to [facility] at [phone], Yrn Dorantes 06/12/2024 02:44:18 PM > The patient was seen on 04/29/24 Referral Priority Routine Medications Medication SIG (Take, Route, Frequency, Duration) Notes Start Date End Date Status buPROPion HCl ER (XL) 300 MG 1 tablet in the morning Orally Once a day; Duration: 90 days Active Atenolol 50 MG TAKE 1 TABLET BY GERARD TH EVERY DAY DIRECTED; Duration: 90 Active Wegovy 2.4 MG/0.75ML INJECT 2.4MG SUBCUT ANEOUS WEEKLY; Duration: 30 Active Piroxicam 20 MG TAKE 1 CAPSULE BY MO UTH EVERY DAY WITH FOOD; Duration: 90 prn Active Lidocaine 5 % APPLY 1 PATCH PROFESSIONAL APPLICATION DESIGNER ALLY ONCE A DAY REMOVE AFTER 12 HOURS FOR 15 DAYS; Duration: 15 Active Simvastatin 20 MG TAKE 1 TABLET BY GERARD TH EVERY DAY; Duration: 90 Active Vitamin D3 125 MCG (5000 UT) as directed Orally Active Fluticasone Propionate HFA 110 MCG/ACT 1 puff Inhalation Twice a day Active Wegovy 0.5mg 0.5mg once intro weekly Active Allergy Active Omeprazole 20 MG 1 capsule 30 minutes before morning meal Orally Once a day Active Turmeric Active Immunizations Vaccine Route Administration Date Status Comme nts Tdap IM Intramuscular 10/10/2024 Administered Social History Tobacco Use: Social History Observation Description Date Details (start date - stop date) Former Smoker NA - NA Tobacco Use/Smoking Question Answer Notes Are you a former smoker How long has it been since you last smoked? 5-10 years Section Notes: former smoker, 30 years ago former smoker, 30 years ago former smoker, 30 years ago Tob: Former smoker, quit 2013 ETOH: Rare former smoker, 30 years ago former smoker, 30 years ago former smoker, 30 years ago former smoker, 30 years ago former smoker, 30 years ago former smoker, 30 years ago former smoker, 30 years ago former smoker, 30 years ago former smoker, 30 years ago former smoker, 30 years ago former smoker, 30 years ago former smoker, 30 years ago former smoker, 30 years ago former smoker, 30 years ago former smoker, 30 years ago former smoker, 30 years ago former smoker, 30 years ago former smoker, 30 years ago former smoker, 30 years ago former smoker, 30 years ago former smoker, 30 years ago former smoker, 30 years ago former smoker, 30 years ago former smoker, 30 years ago former smoker, 30 years ago Problems Problem Type SNOMED Code ICD Code Onset Dates Problem Status W/U Status Risk Notes Problem Hypothyroidism (42145670) Hypothyroidism, unspecified (E03.9) Active confirmed Problem Vitamin D deficiency (20881506) Vitamin D deficiency, unspecified (E55.9) Active confirmed Problem Essential hypertension (92631795) Essential (primary) hypertension (I10) Active confirmed Problem Calculus of kidney with calculus of ureter (257924779) Calculus of kidney with calculus of ureter (N20.2) Active confirmed Problem Diabetes mellitus screening (606625082) Encounter for screening for diabetes mellitus (Z13.1) Active confirmed Problem Screening for osteoporosis (677367971) Encounter for screening for osteoporosis (Z13.820) Active confirmed Problem Morbid obesity (722466050) Morbid obesity (E66.01) Active confirmed Problem Hyperlipidaemia (11024646) Hyperlipidemia, unspecified hyperlipidemia type (E78.5) Active confirmed Problem Hypothyroidism (67571252) Hypothyroidism, unspecified type (E03.9) Active confirmed Problem Aortic valve disorder (5731743) Aortic valve stenosis, etiology of cardiac valve disease unspecified (I35.0) Active confirmed Problem Annual health maintenance examination (75674618) Annual physical exam (Z00.00) Active confirmed Problem Vitamin D deficiency (74201037) Vitamin D deficiency (E55.9) Active confirmed Problem Screening for malignant neoplasm of breast (859838847) Breast cancer screening by mammogram (Z12.31) Active confirmed Problem Obstructive sleep apnea syndrome (80842240) FRIDA (obstructive sleep apnea) (G47.33) Active confirmed Problem Diabetes mellitus screening (644370500) Diabetes mellitus screening (Z13.1) Active confirmed Problem Nephrolithiasis (65155393) Nephrolithiasis (N20.0) Active confirmed Problem Body mass index 40+ - morbidly obese (203520321) BMI 40.0-44.9, adult (Z68.41) Active confirmed Problem Obese class II (613915605166756) BMI 37.0-37.9, adult (Z68.37) Active confirmed Problem Dyslipidemia (599216286) Dyslipidemia (E78.5) Active confirmed Problem 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) Active confirmed Problem Obese class II (904538224264073) BMI 39.0-39.9,adult (Z68.39) Active confirmed Problem Vitamin B>12< deficiency anaemia (31875417) Anemia due to vitamin B12 deficiency, unspecified B12 deficiency type (D51.9) Active confirmed Problem Body mass index 40+ - severely obese (149074202) BMI 45.0-49.9, adult (Z68.42) Active confirmed Problem Body mass index 40+ - severely obese (356762018) Body mass index [BMI] 40.0-44.9, adult (Z68.41) Active confirmed Problem Obesity (757260592) Obesity (E66.9) Active confirmed Vital Signs Heart Rate 70 /min 10/10/2024 Oximetry 99 % 10/10/2024 Blood pressure diastolic 64 mm Hg 10/10/2024 Height 65 in 10/10/2024 Blood pressure systolic 116 mm Hg 10/10/2024 Weight 222.8 lbs 10/10/2024 BMI 37.07 kg/m2 10/10/2024 Encounters Encounter Location Date Provider Diagnosis [facility] [address] [place] [address] 12/31/2023 JAMES ARNOLD Morbid obesity E66.0 1 ; BMI 40.0-44.9, adult Z68.41 ; FRIDA (obstructive sleep apnea) G47.33 ; Dyslipidemia E78.5 and Essential (primary) hypertension I10 [facility] [address] 02/14/2024 JAMES CATALINA Morbid obesity E66.0 1 ; BMI 40.0-44.9, adult Z68.41 ; FRIDA (obstructive sleep apnea) G47.33 ; Dyslipidemia E78.5 and Essential (primary) hypertension I10 [facility] [address] 04/01/2024 JAMES CATALINA Morbid obesity E66.0 1 ; BMI 40.0-44.9, adult Z68.41 ; FRIDA (obstructive sleep apnea) G47.33 ; Dyslipidemia E78.5 and Essential (primary) hypertension I10 [facility] [address] 04/24/2024 JAMES CATALINA Morbid obesity E66.0 1 ; Knee pain M25.569 ; BMI 40.0-44.9, adult Z68.41 ; FRIDA (obstructive sleep apnea) G47.33 ; Dyslipidemia E78.5 and Essential (primary) hypertension I10 [facility] [address] 05/19/2024 JAMES CATALINA Obesity E66.9 ; BMI 39.0-39.9,adult Z68.39 ; FRIDA (obstructive sleep apnea) G47.33 ; Dyslipidemia E78.5 ; Essential (primary) hypertension I10 and Right knee pain, unspecified chronicity M25.[address] [address] 07/14/2024 JAMES CATALINA Obesity E66.9 ; BMI 39.0-39.9,adult Z68.39 ; FRIDA (obstructive sleep apnea) G47.33 ; Dyslipidemia E78.5 ; Essential (primary) hypertension I10 ; Annual physical exam Z00.00 ; Encounter for screening for diabetes mellitus Z13.1 ; Vitamin D deficiency, unspecified E55.9 ; Hypothyroidism, unspecified type E03.9 and Anemia due to vitamin B12 deficiency, unspecified B12 deficiency type D51.[address] [facility] [place] [address] 10/10/2024 JAMES EGANA Annual physical exam Z00.00 ; Obesity E66.9 ; BMI 37.0-37.9, adult Z68.37 ; FRIDA (obstructive sleep apnea) G47.33 ; Dyslipidemia E78.5 ; JOANN (acute kidney injury) N17.9 ; Depression screen Z13.31 ; Essential (primary) hypertension I10 ; Encounter for examination of blood pressure without abnormal findings Z01.30 and Encounter for immunization Z23 [facility] [address] [place] [address] 12/11/2023 JAMES CATALINA Morbid obesity E66.[address] [facility] [address] [place] [address] 02/14/2024 JAMES CATALINA [facility] [address] [place] [address] 03/03/2024 JAMES CATALINA [facility] [address] [place] [address] 03/03/2024 JAMES CATALINA [facility] [address] [place] [address] 03/10/2024 JAMES CATALINA [facility] [address] [place] [address] 04/28/2024 JAMES CATALINA [facility] [address] [place] [address] 04/28/2024 JAMES CATALINA Knee pain M25.[address] [facility] [address] [place] [address] 05/01/2024 JAMES CATALINA [facility] [address] [place] [address] 07/11/2024 JAMES CATALINA [facility] [address] [place] [address] 07/29/2024 JAMES CATALINA [facility] [address] [place] [address] 10/07/2024 JAMES CATALINA [facility] [address] [place] [address] 10/10/2024 JAMES ARNOLD Assessments Encounter Date Diagnosis (ICD Code) Assessment Notes Treatment Notes Treatment Clinical Notes Section Notes 12/11/2023 Morbid obesity (ICD-10 - E66.01) 12/31/2023 Morbid obesity (ICD-10 - E66.01) #Obesity: Patient has had a discussion with her surgeon (Dr. Chen, [facility]) who agrees she needs medical weight loss management and Contrave is a good start. We discussed that the goal of Contrave is to suppress cravings and curb appetite to the point where she is eating a significant amount less calories. Discussed that the calories she will be consuming should be low in carbohydrates and fats. She is also aware that, as her knees permit, she should be walking 8000-10,000 steps per day. Educated on potential side effects of Contrave including nausea and headache. I will see here in 1 month for weight management 01/17/22: BMI 42.6 weight 256. On Contrave, had some difficulty obtaining, required to go through speciality pharmacy. Reports drastic improvement of cravings. Will attempt resubmission for insurance coverage given pt BMI/risk factors. 03/03/22: BMI 42 and weight 256. Continue Contrave. Reports she has been inconsistent with taking it. States it does help her cravings. She has not been as active. Given holidays, reports she has made poor food choices. Encouraged continued exercise. Pulled back, will given Flexeril. may need prednisone if doesn't improve. 05/26/22: BMI 43 weight 261. Contrave not suppressing appetite or cravings. Has been going to gym. Will submit for Wegovy. Discussed s/e and administration as well as protein intake. Recommend seca scale at next visit. 06/29/22: BMI 44, weight 266. Wegovy given today first dose. See above. 08/10/22: Weight 262.9lbs BMI 43.74 Patient lost 3 pounds currently on Wegovy 0.25mg subq weekly on her second box first week would like to finish out box and then increase dose will increase to 0.5mg subq/weekly 12/07/22: BMI 44, Weight 266. Wegovy denied for PA, due to nto losing enough. Encouraged exercise, eating appropriately, and start Wellbutrin 02/12: BMI 44, Weight 266. Will trial Zepbound 03/26/23: Zepbound denied. Paper Rx given for Wegovy 0.25 mg subcu weekly., then for 0.5 mg. 05/21/23: BMI 43, Weight 275 lbs. Unable to find Wegovy. Given Ozempic sample, to transition to Wegovy. Pt unable to afford compounded. Needs to increase protein intake. 07/17/23: BMI 45, Weight 271. Will increase Wegovy 1.7 mg subcu weekly. Need to add protein and more exercise. Reports she felt like Ozempic worked better. She states she is due for her CPE. Denies constipation. Reports mild GERD. Lays down frequently after eating. 10/17/2023: BMI 42.8, weight 257lbs. Patient congratulated on progress. Taking Wegovy 2.4 mg subcutaneously weekly in addition to Wellbutrin 150 mg daily with adequate appetite suppression and craving control. Denies known side effects. SECA reviewed, reveals fat loss with maintained skeletal muscles. Patient is encouraged to maintain lifestyle changes including making healthy diet choices and cooperating regular physical activity into her routine. 12/31/23: BMI 41, Weight 248 lbs. Continue Wegovy 2.4 mg subcu weekly. Congratulated on efforts. Re-encouraged 100 gm of protein and resistance trianing. #Sleep apnea: Inconsistency wearing CPAP. Wears it more often when she notices more snoring. Educated that she should try her best to be more consistent, as untreated sleep apnea is a common cause of poorly controlled hypertension and other adverse health outcomes. # HTN> Resume antihypertensive Total time spent with pt was 30 minutes, with over half being face to face counselling. Case discussed with collaborating physician Min Salguero who reviewed the assessment and plan. Chart, medications, labs, vital signs reviewed. Dictation was accomplished with the use of [employer] voice recognition software, prone to medical misidentifications and grammatical errors. This is unintentional and the practitioner does try to identify and correct these, but some could still be present. Please do not hesitate to contact practitioner for clarification. All questions answered to patients satisfaction. Patient verbalized understanding of diagnosis and treatments explained. To call sooner prior to next visit it any questions/concerns arise. 12/31/2023 BMI 40.0-44.9, adult (ICD-10 - Z68.41) #Obesity: Patient has had a discussion with her surgeon (Dr. Chen, [facility]) who agrees she needs medical weight loss management and Contrave is a good start. We discussed that the goal of Contrave is to suppress cravings and curb appetite to the point where she is eating a significant amount less calories. Discussed that the calories she will be consuming should be low in carbohydrates and fats. She is also aware that, as her knees permit, she should be walking 8000-10,000 steps per day. Educated on potential side effects of Contrave including nausea and headache. I will see here in 1 month for weight management 01/17/22: BMI 42.6 weight 256. On Contrave, had some difficulty obtaining, required to go through speciality pharmacy. Reports drastic improvement of cravings. Will attempt resubmission for insurance coverage given pt BMI/risk factors. 03/03/22: BMI 42 and weight 256. Continue Contrave. Reports she has been inconsistent with taking it. States it does help her cravings. She has not been as active. Given holidays, reports she has made poor food choices. Encouraged continued exercise. Pulled back, will given Flexeril. may need prednisone if doesn't improve. 05/26/22: BMI 43 weight 261. Contrave not suppressing appetite or cravings. Has been going to gym. Will submit for Wegovy. Discussed s/e and administration as well as protein intake. Recommend seca scale at next visit. 06/29/22: BMI 44, weight 266. Wegovy given today first dose. See above. 08/10/22: Weight 262.9lbs BMI 43.74 Patient lost 3 pounds currently on Wegovy 0.25mg subq weekly on her second box first week would like to finish out box and then increase dose will increase to 0.5mg subq/weekly 12/07/22: BMI 44, Weight 266. Wegovy denied for PA, due to nto losing enough. Encouraged exercise, eating appropriately, and start Wellbutrin 02/12: BMI 44, Weight 266. Will trial Zepbound 03/26/23: Zepbound denied. Paper Rx given for Wegovy 0.25 mg subcu weekly., then for 0.5 mg. 05/21/23: BMI 43, Weight 275 lbs. Unable to find Wegovy. Given Ozempic sample, to transition to Wegovy. Pt unable to afford compounded. Needs to increase protein intake. 07/17/23: BMI 45, Weight 271. Will increase Wegovy 1.7 mg subcu weekly. Need to add protein and more exercise. Reports she felt like Ozempic worked better. She states she is due for her CPE. Denies constipation. Reports mild GERD. Lays down frequently after eating. 10/17/2023: BMI 42.8, weight 257lbs. Patient congratulated on progress. Taking Wegovy 2.4 mg subcutaneously weekly in addition to Wellbutrin 150 mg daily with adequate appetite suppression and craving control. Denies known side effects. SECA reviewed, reveals fat loss with maintained skeletal muscles. Patient is encouraged to maintain lifestyle changes including making healthy diet choices and cooperating regular physical activity into her routine. 12/31/23: BMI 41, Weight 248 lbs. Continue Wegovy 2.4 mg subcu weekly. Congratulated on efforts. Re-encouraged 100 gm of protein and resistance trianing. #Sleep apnea: Inconsistency wearing CPAP. Wears it more often when she notices more snoring. Educated that she should try her best to be more consistent, as untreated sleep apnea is a common cause of poorly controlled hypertension and other adverse health outcomes. # HTN> Resume antihypertensive Total time spent with pt was 30 minutes, with over half being face to face counselling. Case discussed with collaborating physician Min Salguero who reviewed the assessment and plan. Chart, medications, labs, vital signs reviewed. Dictation was accomplished with the use of [employer] voice recognition software, prone to medical misidentifications and grammatical errors. This is unintentional and the practitioner does try to identify and correct these, but some could still be present. Please do not hesitate to contact practitioner for clarification. All questions answered to patients satisfaction. Patient verbalized understanding of diagnosis and treatments explained. To call sooner prior to next visit it any questions/concerns arise. 02/14/2024 Morbid obesity (ICD-10 - E66.01) #Obesity: Patient has had a discussion with her surgeon (Dr. Chen, [facility]) who agrees she needs medical weight loss management and Contrave is a good start. We discussed that the goal of Contrave is to suppress cravings and curb appetite to the point where she is eating a significant amount less calories. Discussed that the calories she will be consuming should be low in carbohydrates and fats. She is also aware that, as her knees permit, she should be walking 8000-10,000 steps per day. Educated on potential side effects of Contrave including nausea and headache. I will see here in 1 month for weight management 01/17/22: BMI 42.6 weight 256. On Contrave, had some difficulty obtaining, required to go through speciality pharmacy. Reports drastic improvement of cravings. Will attempt resubmission for insurance coverage given pt BMI/risk factors. 03/03/22: BMI 42 and weight 256. Continue Contrave. Reports she has been inconsistent with taking it. States it does help her cravings. She has not been as active. Given holidays, reports she has made poor food choices. Encouraged continued exercise. Pulled back, will given Flexeril. may need prednisone if doesn't improve. 05/26/22: BMI 43 weight 261. Contrave not suppressing appetite or cravings. Has been going to gym. Will submit for Wegovy. Discussed s/e and administration as well as protein intake. Recommend seca scale at next visit. 06/29/22: BMI 44, weight 266. Wegovy given today first dose. See above. 08/10/22: Weight 262.9lbs BMI 43.74 Patient lost 3 pounds currently on Wegovy 0.25mg subq weekly on her second box first week would like to finish out box and then increase dose will increase to 0.5mg subq/weekly 12/07/22: BMI 44, Weight 266. Wegovy denied for PA, due to nto losing enough. Encouraged exercise, eating appropriately, and start Wellbutrin 02/12: BMI 44, Weight 266. Will trial Zepbound 03/26/23: Zepbound denied. Paper Rx given for Wegovy 0.25 mg subcu weekly., then for 0.5 mg. 05/21/23: BMI 43, Weight 275 lbs. Unable to find Wegovy. Given Ozempic sample, to transition to Wegovy. Pt unable to afford compounded. Needs to increase protein intake. 07/17/23: BMI 45, Weight 271. Will increase Wegovy 1.7 mg subcu weekly. Need to add protein and more exercise. Reports she felt like Ozempic worked better. She states she is due for her CPE. Denies constipation. Reports mild GERD. Lays down frequently after eating. 10/17/2023: BMI 42.8, weight 257lbs. Patient congratulated on progress. Taking Wegovy 2.4 mg subcutaneously weekly in addition to Wellbutrin 150 mg daily with adequate appetite suppression and craving control. Denies known side effects. SECA reviewed, reveals fat loss with maintained skeletal muscles. Patient is encouraged to maintain lifestyle changes including making healthy diet choices and cooperating regular physical activity into her routine. 12/31/23: BMI 41, Weight 248 lbs. Continue Wegovy 2.4 mg subcu weekly. Congratulated on efforts. Re-encouraged 100 gm of protein and resistance trianing. 02/14/24: BMI 40, Weifht 245 lb. Will attempt tochange to Zepound 7.5 mg subcu weekly, as she has kind of become stagnant despite adequate exercise onf Wegovy 2.4 mg. Will subtmit PA. Pt aware that there is no lateral dosing between the two medicaiton. Educated on MOA, side effects and storage. #Sleep apnea: Inconsistency wearing CPAP. Wears it more often when she notices more snoring. Educated that she should try her best to be more consistent, as untreated sleep apnea is a common cause of poorly controlled hypertension and other adverse health outcomes. # HTN> Resume antihypertensive Total time spent with pt was 30 minutes, with over half being face to face counselling. Case discussed with collaborating physician Minnie Salguero who reviewed the assessment and plan. Chart, medications, labs, vital signs reviewed. Dictation was accomplished with the use of [employer] voice recognition software, prone to medical misidentifications and grammatical errors. This is unintentional and the practitioner does try to identify and correct these, but some could still be present. Please do not hesitate to contact practitioner for clarification. All questions answered to patients satisfaction. Patient verbalized understanding of diagnosis and treatments explained. To call sooner prior to next visit it any questions/concerns arise. 02/14/2024 BMI 40.0-44.9, adult (ICD-10 - Z68.41) #Obesity: Patient has had a discussion with her surgeon (Dr. Chen, [facility]) who agrees she needs medical weight loss management and Contrave is a good start. We discussed that the goal of Contrave is to suppress cravings and curb appetite to the point where she is eating a significant amount less calories. Discussed that the calories she will be consuming should be low in carbohydrates and fats. She is also aware that, as her knees permit, she should be walking 8000-10,000 steps per day. Educated on potential side effects of Contrave including nausea and headache. I will see here in 1 month for weight management 01/17/22: BMI 42.6 weight 256. On Contrave, had some difficulty obtaining, required to go through speciality pharmacy. Reports drastic improvement of cravings. Will attempt resubmission for insurance coverage given pt BMI/risk factors. 03/03/22: BMI 42 and weight 256. Continue Contrave. Reports she has been inconsistent with taking it. States it does help her cravings. She has not been as active. Given holidays, reports she has made poor food choices. Encouraged continued exercise. Pulled back, will given Flexeril. may need prednisone if doesn't improve. 05/26/22: BMI 43 weight 261. Contrave not suppressing appetite or cravings. Has been going to gym. Will submit for Wegovy. Discussed s/e and administration as well as protein intake. Recommend seca scale at next visit. 06/29/22: BMI 44, weight 266. Wegovy given today first dose. See above. 08/10/22: Weight 262.9lbs BMI 43.74 Patient lost 3 pounds currently on Wegovy 0.25mg subq weekly on her second box first week would like to finish out box and then increase dose will increase to 0.5mg subq/weekly 12/07/22: BMI 44, Weight 266. Wegovy denied for PA, due to nto losing enough. Encouraged exercise, eating appropriately, and start Wellbutrin 02/12: BMI 44, Weight 266. Will trial Zepbound 03/26/23: Zepbound denied. Paper Rx given for Wegovy 0.25 mg subcu weekly., then for 0.5 mg. 05/21/23: BMI 43, Weight 275 lbs. Unable to find Wegovy. Given Ozempic sample, to transition to Wegovy. Pt unable to afford compounded. Needs to increase protein intake. 07/17/23: BMI 45, Weight 271. Will increase Wegovy 1.7 mg subcu weekly. Need to add protein and more exercise. Reports she felt like Ozempic worked better. She states she is due for her CPE. Denies constipation. Reports mild GERD. Lays down frequently after eating. 10/17/2023: BMI 42.8, weight 257lbs. Patient congratulated on progress. Taking Wegovy 2.4 mg subcutaneously weekly in addition to Wellbutrin 150 mg daily with adequate appetite suppression and craving control. Denies known side effects. SECA reviewed, reveals fat loss with maintained skeletal muscles. Patient is encouraged to maintain lifestyle changes including making healthy diet choices and cooperating regular physical activity into her routine. 12/31/23: BMI 41, Weight 248 lbs. Continue Wegovy 2.4 mg subcu weekly. Congratulated on efforts. Re-encouraged 100 gm of protein and resistance trianing. 02/14/24: BMI 40, Weifht 245 lb. Will attempt tochange to Zepound 7.5 mg subcu weekly, as she has kind of become stagnant despite adequate exercise onf Wegovy 2.4 mg. Will subtmit PA. Pt aware that there is no lateral dosing between the two medicaiton. Educated on MOA, side effects and storage. #Sleep apnea: Inconsistency wearing CPAP. Wears it more often when she notices more snoring. Educated that she should try her best to be more consistent, as untreated sleep apnea is a common cause of poorly controlled hypertension and other adverse health outcomes. # HTN> Resume antihypertensive Total time spent with pt was 30 minutes, with over half being face to face counselling. Case discussed with collaborating physician Minnie Salguero who reviewed the assessment and plan. Chart, medications, labs, vital signs reviewed. Dictation was accomplished with the use of [employer] voice recognition software, prone to medical misidentifications and grammatical errors. This is unintentional and the practitioner does try to identify and correct these, but some could still be present. Please do not hesitate to contact practitioner for clarification. All questions answered to patients satisfaction. Patient verbalized understanding of diagnosis and treatments explained. To call sooner prior to next visit it any questions/concerns arise. 04/01/2024 Morbid obesity (ICD-10 - E66.01) #Obesity: Patient has had a discussion with her surgeon (Dr. Chen, [facility]) who agrees she needs medical weight loss management and Contrave is a good start. We discussed that the goal of Contrave is to suppress cravings and curb appetite to the point where she is eating a significant amount less calories. Discussed that the calories she will be consuming should be low in carbohydrates and fats. She is also aware that, as her knees permit, she should be walking 8000-10,000 steps per day. Educated on potential side effects of Contrave including nausea and headache. I will see here in 1 month for weight management 01/17/22: BMI 42.6 weight 256. On Contrave, had some difficulty obtaining, required to go through speciality pharmacy. Reports drastic improvement of cravings. Will attempt resubmission for insurance coverage given pt BMI/risk factors. 03/03/22: BMI 42 and weight 256. Continue Contrave. Reports she has been inconsistent with taking it. States it does help her cravings. She has not been as active. Given holidays, reports she has made poor food choices. Encouraged continued exercise. Pulled back, will given Flexeril. may need prednisone if doesn't improve. 05/26/22: BMI 43 weight 261. Contrave not suppressing appetite or cravings. Has been going to gym. Will submit for Wegovy. Discussed s/e and administration as well as protein intake. Recommend seca scale at next visit. 06/29/22: BMI 44, weight 266. Wegovy given today first dose. See above. 08/10/22: Weight 262.9lbs BMI 43.74 Patient lost 3 pounds currently on Wegovy 0.25mg subq weekly on her second box first week would like to finish out box and then increase dose will increase to 0.5mg subq/weekly 12/07/22: BMI 44, Weight 266. Wegovy denied for PA, due to nto losing enough. Encouraged exercise, eating appropriately, and start Wellbutrin 02/12: BMI 44, Weight 266. Will trial Zepbound 03/26/23: Zepbound denied. Paper Rx given for Wegovy 0.25 mg subcu weekly., then for 0.5 mg. 05/21/23: BMI 43, Weight 275 lbs. Unable to find Wegovy. Given Ozempic sample, to transition to Wegovy. Pt unable to afford compounded. Needs to increase protein intake. 07/17/23: BMI 45, Weight 271. Will increase Wegovy 1.7 mg subcu weekly. Need to add protein and more exercise. Reports she felt like Ozempic worked better. She states she is due for her CPE. Denies constipation. Reports mild GERD. Lays down frequently after eating. 10/17/2023: BMI 42.8, weight 257lbs. Patient congratulated on progress. Taking Wegovy 2.4 mg subcutaneously weekly in addition to Wellbutrin 150 mg daily with adequate appetite suppression and craving control. Denies known side effects. SECA reviewed, reveals fat loss with maintained skeletal muscles. Patient is encouraged to maintain lifestyle changes including making healthy diet choices and cooperating regular physical activity into her routine. 12/31/23: BMI 41, Weight 248 lbs. Continue Wegovy 2.4 mg subcu weekly. Congratulated on efforts. Re-encouraged 100 gm of protein and resistance trianing. 02/14/24: BMI 40, Weifht 245 lb. Will attempt tochange to Zepound 7.5 mg subcu weekly, as she has kind of become stagnant despite adequate exercise onf Wegovy 2.4 mg. Will subtmit PA. Pt aware that there is no lateral dosing between the two medicaiton. Educated on MOA, side effects and storage. 04/01/24: BMI 40, Weight 243. Zepbound was too expensive. Resume Wegovy 2.4 mg subcu weekly, increase wellbutrin to 300 mg po daily. Intentional exercise, and increase protein intake. #Sleep apnea: Inconsistency wearing CPAP. Wears it more often when she notices more snoring. Educated that she should try her best to be more consistent, as untreated sleep apnea is a common cause of poorly controlled hypertension and other adverse health outcomes. # HTN> Resume antihypertensive Total time spent with pt was 30 minutes, with over half being face to face counselling. Medication being prescribed under obesity medicine certified MD, Dr. Fab Salguero Case discussed with collaborating physician Minnie Salguero who reviewed the assessment and plan. Chart, medications, labs, vital signs reviewed. Dictation was accomplished with the use of [employer] voice recognition software, prone to medical misidentifications and grammatical errors. This is unintentional and the practitioner does try to identify and correct these, but some could still be present. Please do not hesitate to contact practitioner for clarification. All questions answered to patients satisfaction. Patient verbalized understanding of diagnosis and treatments explained. To call sooner prior to next visit it any questions/concerns arise. 04/01/2024 BMI 40.0-44.9, adult (ICD-10 - Z68.41) #Obesity: Patient has had a discussion with her surgeon (Dr. Chen, [facility]) who agrees she needs medical weight loss management and Contrave is a good start. We discussed that the goal of Contrave is to suppress cravings and curb appetite to the point where she is eating a significant amount less calories. Discussed that the calories she will be consuming should be low in carbohydrates and fats. She is also aware that, as her knees permit, she should be walking 8000-10,000 steps per day. Educated on potential side effects of Contrave including nausea and headache. I will see here in 1 month for weight management 01/17/22: BMI 42.6 weight 256. On Contrave, had some difficulty obtaining, required to go through speciality pharmacy. Reports drastic improvement of cravings. Will attempt resubmission for insurance coverage given pt BMI/risk factors. 03/03/22: BMI 42 and weight 256. Continue Contrave. Reports she has been inconsistent with taking it. States it does help her cravings. She has not been as active. Given holidays, reports she has made poor food choices. Encouraged continued exercise. Pulled back, will given Flexeril. may need prednisone if doesn't improve. 05/26/22: BMI 43 weight 261. Contrave not suppressing appetite or cravings. Has been going to gym. Will submit for Wegovy. Discussed s/e and administration as well as protein intake. Recommend seca scale at next visit. 06/29/22: BMI 44, weight 266. Wegovy given today first dose. See above. 08/10/22: Weight 262.9lbs BMI 43.74 Patient lost 3 pounds currently on Wegovy 0.25mg subq weekly on her second box first week would like to finish out box and then increase dose will increase to 0.5mg subq/weekly 12/07/22: BMI 44, Weight 266. Wegovy denied for PA, due to nto losing enough. Encouraged exercise, eating appropriately, and start Wellbutrin 02/12: BMI 44, Weight 266. Will trial Zepbound 03/26/23: Zepbound denied. Paper Rx given for Wegovy 0.25 mg subcu weekly., then for 0.5 mg. 05/21/23: BMI 43, Weight 275 lbs. Unable to find Wegovy. Given Ozempic sample, to transition to Wegovy. Pt unable to afford compounded. Needs to increase protein intake. 07/17/23: BMI 45, Weight 271. Will increase Wegovy 1.7 mg subcu weekly. Need to add protein and more exercise. Reports she felt like Ozempic worked better. She states she is due for her CPE. Denies constipation. Reports mild GERD. Lays down frequently after eating. 10/17/2023: BMI 42.8, weight 257lbs. Patient congratulated on progress. Taking Wegovy 2.4 mg subcutaneously weekly in addition to Wellbutrin 150 mg daily with adequate appetite suppression and craving control. Denies known side effects. SECA reviewed, reveals fat loss with maintained skeletal muscles. Patient is encouraged to maintain lifestyle changes including making healthy diet choices and cooperating regular physical activity into her routine. 12/31/23: BMI 41, Weight 248 lbs. Continue Wegovy 2.4 mg subcu weekly. Congratulated on efforts. Re-encouraged 100 gm of protein and resistance trianing. 02/14/24: BMI 40, Weifht 245 lb. Will attempt tochange to Zepound 7.5 mg subcu weekly, as she has kind of become stagnant despite adequate exercise onf Wegovy 2.4 mg. Will subtmit PA. Pt aware that there is no lateral dosing between the two medicaiton. Educated on MOA, side effects and storage. 04/01/24: BMI 40, Weight 243. Zepbound was too expensive. Resume Wegovy 2.4 mg subcu weekly, increase wellbutrin to 300 mg po daily. Intentional exercise, and increase protein intake. #Sleep apnea: Inconsistency wearing CPAP. Wears it more often when she notices more snoring. Educated that she should try her best to be more consistent, as untreated sleep apnea is a common cause of poorly controlled hypertension and other adverse health outcomes. # HTN> Resume antihypertensive Total time spent with pt was 30 minutes, with over half being face to face counselling. Medication being prescribed under obesity medicine certified Dr. Fab AMBRIZ Case discussed with collaborating physician Minnie Salguero who reviewed the assessment and plan. Chart, medications, labs, vital signs reviewed. Dictation was accomplished with the use of [employer] voice recognition software, prone to medical misidentifications and grammatical errors. This is unintentional and the practitioner does try to identify and correct these, but some could still be present. Please do not hesitate to contact practitioner for clarification. All questions answered to patients satisfaction. Patient verbalized understanding of diagnosis and treatments explained. To call sooner prior to next visit it any questions/concerns arise. 04/24/2024 Morbid obesity (ICD-10 - E66.01) # R knee pain. Diony obtain 3-4 view R knee x-ray, as well as US of the RLE for r/o of Bakers Cyst. Refer to [facility] for eval #Obesity: Continue Wegovy 2.4 mg subcu weekly, increase wellbutrin to 300 mg po daily. Intentional exercise, and increase protein intake. #Sleep apnea: Inconsistency wearing CPAP. Wears it more often when she notices more snoring. Educated that she should try her best to be more consistent, as untreated sleep apnea is a common cause of poorly controlled hypertension and other adverse health outcomes. # HTN> Resume antihypertensive Total time spent with pt was 30 minutes, with over half being face to face counselling. Medication being prescribed under obesity medicine certified Dr. Fab AMBRIZ Case discussed with collaborating physician Minnie Salguero who reviewed the assessment and plan. Chart, medications, labs, vital signs reviewed. Dictation was accomplished with the use of [employer] voice recognition software, prone to medical misidentifications and grammatical errors. This is unintentional and the practitioner does try to identify and correct these, but some could still be present. Please do not hesitate to contact practitioner for clarification. All questions answered to patients satisfaction. Patient verbalized understanding of diagnosis and treatments explained. To call sooner prior to next visit it any questions/concerns arise. 04/24/2024 Knee pain (ICD-10 - M25.569) # R knee pain. Diony obtain 3-4 view R knee x-ray, as well as US of the RLE for r/o of Bakers Cyst. Refer to [facility] for eval #Obesity: Continue Wegovy 2.4 mg subcu weekly, increase wellbutrin to 300 mg po daily. Intentional exercise, and increase protein intake. #Sleep apnea: Inconsistency wearing CPAP. Wears it more often when she notices more snoring. Educated that she should try her best to be more consistent, as untreated sleep apnea is a common cause of poorly controlled hypertension and other adverse health outcomes. # HTN> Resume antihypertensive Total time spent with pt was 30 minutes, with over half being face to face counselling. Medication being prescribed under obesity medicine certified MD, Dr. Fab Salguero Case discussed with collaborating physician Minnie Salguero who reviewed the assessment and plan. Chart, medications, labs, vital signs reviewed. Dictation was accomplished with the use of [employer] voice recognition software, prone to medical misidentifications and grammatical errors. This is unintentional and the practitioner does try to identify and correct these, but some could still be present. Please do not hesitate to contact practitioner for clarification. All questions answered to patients satisfaction. Patient verbalized understanding of diagnosis and treatments explained. To call sooner prior to next visit it any questions/concerns arise. 04/28/2024 Knee pain (ICD-10 - M25.569) 05/19/2024 BMI 39.0-39.9,adult (ICD-10 - Z68.39) #Obesity: Patient has had a discussion with her surgeon (Dr. Chen, [facility]) who agrees she needs medical weight loss management and Contrave is a good start. We discussed that the goal of Contrave is to suppress cravings and curb appetite to the point where she is eating a significant amount less calories. Discussed that the calories she will be consuming should be low in carbohydrates and fats. She is also aware that, as her knees permit, she should be walking 8000-10,000 steps per day. Educated on potential side effects of Contrave including nausea and headache. I will see here in 1 month for weight management 01/17/22: BMI 42.6 weight 256. On Contrave, had some difficulty obtaining, required to go through speciality pharmacy. Reports drastic improvement of cravings. Will attempt resubmission for insurance coverage given pt BMI/risk factors. 03/03/22: BMI 42 and weight 256. Continue Contrave. Reports she has been inconsistent with taking it. States it does help her cravings. She has not been as active. Given holidays, reports she has made poor food choices. Encouraged continued exercise. Pulled back, will given Flexeril. may need prednisone if doesn't improve. 05/26/22: BMI 43 weight 261. Contrave not suppressing appetite or cravings. Has been going to gym. Will submit for Wegovy. Discussed s/e and administration as well as protein intake. Recommend seca scale at next visit. 06/29/22: BMI 44, weight 266. Wegovy given today first dose. See above. 08/10/22: Weight 262.9lbs BMI 43.74 Patient lost 3 pounds currently on Wegovy 0.25mg subq weekly on her second box first week would like to finish out box and then increase dose will increase to 0.5mg subq/weekly 12/07/22: BMI 44, Weight 266. Wegovy denied for PA, due to nto losing enough. Encouraged exercise, eating appropriately, and start Wellbutrin 02/12: BMI 44, Weight 266. Will trial Zepbound 03/26/23: Zepbound denied. Paper Rx given for Wegovy 0.25 mg subcu weekly., then for 0.5 mg. 05/21/23: BMI 43, Weight 275 lbs. Unable to find Wegovy. Given Ozempic sample, to transition to Wegovy. Pt unable to afford compounded. Needs to increase protein intake. 07/17/23: BMI 45, Weight 271. Will increase Wegovy 1.7 mg subcu weekly. Need to add protein and more exercise. Reports she felt like Ozempic worked better. She states she is due for her CPE. Denies constipation. Reports mild GERD. Lays down frequently after eating. 10/17/2023: BMI 42.8, weight 257lbs. Patient congratulated on progress. Taking Wegovy 2.4 mg subcutaneously weekly in addition to Wellbutrin 150 mg daily with adequate appetite suppression and craving control. Denies known side effects. SECA reviewed, reveals fat loss with maintained skeletal muscles. Patient is encouraged to maintain lifestyle changes including making healthy diet choices and cooperating regular physical activity into her routine. 12/31/23: BMI 41, Weight 248 lbs. Continue Wegovy 2.4 mg subcu weekly. Congratulated on efforts. Re-encouraged 100 gm of protein and resistance trianing. 02/14/24: BMI 40, Weifht 245 lb. Will attempt tochange to Zepound 7.5 mg subcu weekly, as she has kind of become stagnant despite adequate exercise onf Wegovy 2.4 mg. Will subtmit PA. Pt aware that there is no lateral dosing between the two medicaiton. Educated on MOA, side effects and storage. 04/01/24: BMI 40, Weight 243. Zepbound was too expensive. Resume Wegovy 2.4 mg subcu weekly, increase wellbutrin to 300 mg po daily. Intentional exercise, and increase protein intake. 05/19/24: BMI 39, Weight 235. Continue Wegovy 2.4 mg subcu weekly. Continue adequate protein intake. # R knee pain. Saw [facility], had steroid injection with improvement of sx. Known severe OA, will knee total joint replacement #Sleep apnea: Inconsistency wearing CPAP. Wears it more often when she notices more snoring. Educated that she should try her best to be more consistent, as untreated sleep apnea is a common cause of poorly controlled hypertension and other adverse health outcomes. # HTN> Resume antihypertensive Total time spent with pt was 30 minutes, with over half being face to face counselling. Medication being prescribed under obesity medicine certified , Dr. Fab Salguero Case discussed with collaborating physician Minnie Salguero who reviewed the assessment and plan. Chart, medications, labs, vital signs reviewed. Dictation was accomplished with the use of [employer] voice recognition software, prone to medical misidentifications and grammatical errors. This is unintentional and the practitioner does try to identify and correct these, but some could still be present. Please do not hesitate to contact practitioner for clarification. All questions answered to patients satisfaction. Patient verbalized understanding of diagnosis and treatments explained. To call sooner prior to next visit it any questions/concerns arise. 05/19/2024 Obesity (ICD-10 - E66.9) #Obesity: Patient has had a discussion with her surgeon (Dr. Chen, [facility]) who agrees she needs medical weight loss management and Contrave is a good start. We discussed that the goal of Contrave is to suppress cravings and curb appetite to the point where she is eating a significant amount less calories. Discussed that the calories she will be consuming should be low in carbohydrates and fats. She is also aware that, as her knees permit, she should be walking 8000-10,000 steps per day. Educated on potential side effects of Contrave including nausea and headache. I will see here in 1 month for weight management 01/17/22: BMI 42.6 weight 256. On Contrave, had some difficulty obtaining, required to go through speciality pharmacy. Reports drastic improvement of cravings. Will attempt resubmission for insurance coverage given pt BMI/risk factors. 03/03/22: BMI 42 and weight 256. Continue Contrave. Reports she has been inconsistent with taking it. States it does help her cravings. She has not been as active. Given holidays, reports she has made poor food choices. Encouraged continued exercise. Pulled back, will given Flexeril. may need prednisone if doesn't improve. 05/26/22: BMI 43 weight 261. Contrave not suppressing appetite or cravings. Has been going to gym. Will submit for Wegovy. Discussed s/e and administration as well as protein intake. Recommend seca scale at next visit. 06/29/22: BMI 44, weight 266. Wegovy given today first dose. See above. 08/10/22: Weight 262.9lbs BMI 43.74 Patient lost 3 pounds currently on Wegovy 0.25mg subq weekly on her second box first week would like to finish out box and then increase dose will increase to 0.5mg subq/weekly 12/07/22: BMI 44, Weight 266. Wegovy denied for PA, due to nto losing enough. Encouraged exercise, eating appropriately, and start Wellbutrin 02/12: BMI 44, Weight 266. Will trial Zepbound 03/26/23: Zepbound denied. Paper Rx given for Wegovy 0.25 mg subcu weekly., then for 0.5 mg. 05/21/23: BMI 43, Weight 275 lbs. Unable to find Wegovy. Given Ozempic sample, to transition to Wegovy. Pt unable to afford compounded. Needs to increase protein intake. 07/17/23: BMI 45, Weight 271. Will increase Wegovy 1.7 mg subcu weekly. Need to add protein and more exercise. Reports she felt like Ozempic worked better. She states she is due for her CPE. Denies constipation. Reports mild GERD. Lays down frequently after eating. 10/17/2023: BMI 42.8, weight 257lbs. Patient congratulated on progress. Taking Wegovy 2.4 mg subcutaneously weekly in addition to Wellbutrin 150 mg daily with adequate appetite suppression and craving control. Denies known side effects. SECA reviewed, reveals fat loss with maintained skeletal muscles. Patient is encouraged to maintain lifestyle changes including making healthy diet choices and cooperating regular physical activity into her routine. 12/31/23: BMI 41, Weight 248 lbs. Continue Wegovy 2.4 mg subcu weekly. Congratulated on efforts. Re-encouraged 100 gm of protein and resistance trianing. 02/14/24: BMI 40, Weifht 245 lb. Will attempt tochange to Zepound 7.5 mg subcu weekly, as she has kind of become stagnant despite adequate exercise onf Wegovy 2.4 mg. Will subtmit PA. Pt aware that there is no lateral dosing between the two medicaiton. Educated on MOA, side effects and storage. 04/01/24: BMI 40, Weight 243. Zepbound was too expensive. Resume Wegovy 2.4 mg subcu weekly, increase wellbutrin to 300 mg po daily. Intentional exercise, and increase protein intake. 05/19/24: BMI 39, Weight 235. Continue Wegovy 2.4 mg subcu weekly. Continue adequate protein intake. # R knee pain. Saw [facility], had steroid injection with improvement of sx. Known severe OA, will knee total joint replacement #Sleep apnea: Inconsistency wearing CPAP. Wears it more often when she notices more snoring. Educated that she should try her best to be more consistent, as untreated sleep apnea is a common cause of poorly controlled hypertension and other adverse health outcomes. # HTN> Resume antihypertensive Total time spent with pt was 30 minutes, with over half being face to face counselling. Medication being prescribed under obesity medicine certified MD, Dr. Fab Salguero Case discussed with collaborating physician Minnie Salguero who reviewed the assessment and plan. Chart, medications, labs, vital signs reviewed. Dictation was accomplished with the use of [employer] voice recognition software, prone to medical misidentifications and grammatical errors. This is unintentional and the practitioner does try to identify and correct these, but some could still be present. Please do not hesitate to contact practitioner for clarification. All questions answered to patients satisfaction. Patient verbalized understanding of diagnosis and treatments explained. To call sooner prior to next visit it any questions/concerns arise. 07/14/2024 Obesity (ICD-10 - E66.9) #Obesity: Patient has had a discussion with her surgeon (Dr. Chen, [facility]) who agrees she needs medical weight loss management and Contrave is a good start. We discussed that the goal of Contrave is to suppress cravings and curb appetite to the point where she is eating a significant amount less calories. Discussed that the calories she will be consuming should be low in carbohydrates and fats. She is also aware that, as her knees permit, she should be walking 8000-10,000 steps per day. Educated on potential side effects of Contrave including nausea and headache. I will see here in 1 month for weight management 01/17/22: BMI 42.6 weight 256. On Contrave, had some difficulty obtaining, required to go through speciality pharmacy. Reports drastic improvement of cravings. Will attempt resubmission for insurance coverage given pt BMI/risk factors. 03/03/22: BMI 42 and weight 256. Continue Contrave. Reports she has been inconsistent with taking it. States it does help her cravings. She has not been as active. Given holidays, reports she has made poor food choices. Encouraged continued exercise. Pulled back, will given Flexeril. may need prednisone if doesn't improve. 05/26/22: BMI 43 weight 261. Contrave not suppressing appetite or cravings. Has been going to gym. Will submit for Wegovy. Discussed s/e and administration as well as protein intake. Recommend seca scale at next visit. 06/29/22: BMI 44, weight 266. Wegovy given today first dose. See above. 08/10/22: Weight 262.9lbs BMI 43.74 Patient lost 3 pounds currently on Wegovy 0.25mg subq weekly on her second box first week would like to finish out box and then increase dose will increase to 0.5mg subq/weekly 12/07/22: BMI 44, Weight 266. Wegovy denied for PA, due to nto losing enough. Encouraged exercise, eating appropriately, and start Wellbutrin 02/12: BMI 44, Weight 266. Will trial Zepbound 03/26/23: Zepbound denied. Paper Rx given for Wegovy 0.25 mg subcu weekly., then for 0.5 mg. 05/21/23: BMI 43, Weight 275 lbs. Unable to find Wegovy. Given Ozempic sample, to transition to Wegovy. Pt unable to afford compounded. Needs to increase protein intake. 07/17/23: BMI 45, Weight 271. Will increase Wegovy 1.7 mg subcu weekly. Need to add protein and more exercise. Reports she felt like Ozempic worked better. She states she is due for her CPE. Denies constipation. Reports mild GERD. Lays down frequently after eating. 10/17/2023: BMI 42.8, weight 257lbs. Patient congratulated on progress. Taking Wegovy 2.4 mg subcutaneously weekly in addition to Wellbutrin 150 mg daily with adequate appetite suppression and craving control. Denies known side effects. SECA reviewed, reveals fat loss with maintained skeletal muscles. Patient is encouraged to maintain lifestyle changes including making healthy diet choices and cooperating regular physical activity into her routine. 12/31/23: BMI 41, Weight 248 lbs. Continue Wegovy 2.4 mg subcu weekly. Congratulated on efforts. Re-encouraged 100 gm of protein and resistance trianing. 02/14/24: BMI 40, Weifht 245 lb. Will attempt tochange to Zepound 7.5 mg subcu weekly, as she has kind of become stagnant despite adequate exercise onf Wegovy 2.4 mg. Will subtmit PA. Pt aware that there is no lateral dosing between the two medicaiton. Educated on MOA, side effects and storage. 04/01/24: BMI 40, Weight 243. Zepbound was too expensive. Resume Wegovy 2.4 mg subcu weekly, increase wellbutrin to 300 mg po daily. Intentional exercise, and increase protein intake. 05/19/24: BMI 39, Weight 235. Continue Wegovy 2.4 mg subcu weekly. Continue adequate protein intake. 07/14/24: BMI 38, Weight 231. Wegovy 2.4 mg subcu weekly. # R knee pain. Saw [facility], had steroid injection with improvement of sx. Known severe OA, will knee total joint replacement #Sleep apnea: Inconsistency wearing CPAP. Wears it more often when she notices more snoring. Educated that she should try her best to be more consistent, as untreated sleep apnea is a common cause of poorly controlled hypertension and other adverse health outcomes. # HTN> Resume antihypertensive Total time spent with pt was 30 minutes, with over half being face to face counselling. Medication being prescribed under obesity medicine certified MD, Dr. Fab Salguero Case discussed with collaborating physician Minnie Salguero who reviewed the assessment and plan. Chart, medications, labs, vital signs reviewed. Dictation was accomplished with the use of [employer] voice recognition software, prone to medical misidentifications and grammatical errors. This is unintentional and the practitioner does try to identify and correct these, but some could still be present. Please do not hesitate to contact practitioner for clarification. All questions answered to patients satisfaction. Patient verbalized understanding of diagnosis and treatments explained. To call sooner prior to next visit it any questions/concerns arise. 07/14/2024 BMI 39.0-39.9,adult (ICD-10 - Z68.39) #Obesity: Patient has had a discussion with her surgeon (Dr. Chen, [facility]) who agrees she needs medical weight loss management and Contrave is a good start. We discussed that the goal of Contrave is to suppress cravings and curb appetite to the point where she is eating a significant amount less calories. Discussed that the calories she will be consuming should be low in carbohydrates and fats. She is also aware that, as her knees permit, she should be walking 8000-10,000 steps per day. Educated on potential side effects of Contrave including nausea and headache. I will see here in 1 month for weight management 01/17/22: BMI 42.6 weight 256. On Contrave, had some difficulty obtaining, required to go through speciality pharmacy. Reports drastic improvement of cravings. Will attempt resubmission for insurance coverage given pt BMI/risk factors. 03/03/22: BMI 42 and weight 256. Continue Contrave. Reports she has been inconsistent with taking it. States it does help her cravings. She has not been as active. Given holidays, reports she has made poor food choices. Encouraged continued exercise. Pulled back, will given Flexeril. may need prednisone if doesn't improve. 05/26/22: BMI 43 weight 261. Contrave not suppressing appetite or cravings. Has been going to gym. Will submit for Wegovy. Discussed s/e and administration as well as protein intake. Recommend seca scale at next visit. 06/29/22: BMI 44, weight 266. Wegovy given today first dose. See above. 08/10/22: Weight 262.9lbs BMI 43.74 Patient lost 3 pounds currently on Wegovy 0.25mg subq weekly on her second box first week would like to finish out box and then increase dose will increase to 0.5mg subq/weekly 12/07/22: BMI 44, Weight 266. Wegovy denied for PA, due to nto losing enough. Encouraged exercise, eating appropriately, and start Wellbutrin 02/12: BMI 44, Weight 266. Will trial Zepbound 03/26/23: Zepbound denied. Paper Rx given for Wegovy 0.25 mg subcu weekly., then for 0.5 mg. 05/21/23: BMI 43, Weight 275 lbs. Unable to find Wegovy. Given Ozempic sample, to transition to Wegovy. Pt unable to afford compounded. Needs to increase protein intake. 07/17/23: BMI 45, Weight 271. Will increase Wegovy 1.7 mg subcu weekly. Need to add protein and more exercise. Reports she felt like Ozempic worked better. She states she is due for her CPE. Denies constipation. Reports mild GERD. Lays down frequently after eating. 10/17/2023: BMI 42.8, weight 257lbs. Patient congratulated on progress. Taking Wegovy 2.4 mg subcutaneously weekly in addition to Wellbutrin 150 mg daily with adequate appetite suppression and craving control. Denies known side effects. SECA reviewed, reveals fat loss with maintained skeletal muscles. Patient is encouraged to maintain lifestyle changes including making healthy diet choices and cooperating regular physical activity into her routine. 12/31/23: BMI 41, Weight 248 lbs. Continue Wegovy 2.4 mg subcu weekly. Congratulated on efforts. Re-encouraged 100 gm of protein and resistance trianing. 02/14/24: BMI 40, Weifht 245 lb. Will attempt tochange to Zepound 7.5 mg subcu weekly, as she has kind of become stagnant despite adequate exercise onf Wegovy 2.4 mg. Will subtmit PA. Pt aware that there is no lateral dosing between the two medicaiton. Educated on MOA, side effects and storage. 04/01/24: BMI 40, Weight 243. Zepbound was too expensive. Resume Wegovy 2.4 mg subcu weekly, increase wellbutrin to 300 mg po daily. Intentional exercise, and increase protein intake. 05/19/24: BMI 39, Weight 235. Continue Wegovy 2.4 mg subcu weekly. Continue adequate protein intake. 07/14/24: BMI 38, Weight 231. Wegovy 2.4 mg subcu weekly. # R knee pain. Saw [facility], had steroid injection with improvement of sx. Known severe OA, will knee total joint replacement #Sleep apnea: Inconsistency wearing CPAP. Wears it more often when she notices more snoring. Educated that she should try her best to be more consistent, as untreated sleep apnea is a common cause of poorly controlled hypertension and other adverse health outcomes. # HTN> Resume antihypertensive Total time spent with pt was 30 minutes, with over half being face to face counselling. Medication being prescribed under obesity medicine certified MD, Dr. Fab Salguero Case discussed with collaborating physician Minnie Salguero who reviewed the assessment and plan. Chart, medications, labs, vital signs reviewed. Dictation was accomplished with the use of [employer] voice recognition software, prone to medical misidentifications and grammatical errors. This is unintentional and the practitioner does try to identify and correct these, but some could still be present. Please do not hesitate to contact practitioner for clarification. All questions answered to patients satisfaction. Patient verbalized understanding of diagnosis and treatments explained. To call sooner prior to next visit it any questions/concerns arise. 10/10/2024 Annual physical exam (ICD-10 - Z00.00) # JOANN. Re-assess renal function. AVOID NSAIDS #Obesity: Currently on Wegovy 2.4 mg subcu weekly. Tolerating well. #Sleep apnea: Semi- compliant with CPAP. # HTN: Resume antihypertensive # Vaccines: Tdap give today # Screenings: UTD # PHQ-9: 3 Physical WomenPatient seen and examined. Comprehensive discussion was done on the following .1. Nutrition: It is important to follow a healthy diet based on lots of vegetables and legumes and good fat. Avoid processed food and processed carbohydrates. Learn to prepare your own meals. Learn to read labels and avoid high fructose corn syrup, processed chemicals added to increase shelf life and preprepared meals. Avoid fast foods. Learn to eat slowly and plan meals for a week. Try to count calories and be mindful off daily calorie intake. Get into the habit of keeping an eye on your weight by using an appropriate scale. Learn to log exercise and discussed fitness Apps like [employer] which can help keep log off calories taken versus calories burned. Local food should be preferred. Discussed Dirty Dozen Versus Clean Fifteen. Discussed healthy supplements like fish oil, Tumeric, Curcumin, Melatonin, Resveratrol, Probiotics, Vitamin-D, Alpha-Lipoic acid, Vitamin-D and coconut oil.2. It is important to exercise regularly. Is a good habit to walk at least 30-45 minutes a day. Gentle weightlifting with standard precautions to protect the back. Finding activity like cycling or hiking and get into the habit of engaging in it. Stretching before and after the exercises important. It is also important to contact me if there are any problems like shortness of breath, chest pain, back pain and joint or muscle pain associated with the exercise.3. Discussed age appropriate screening guidelines. Colonoscopy needs to start at age 50 with stool for occult blood as appropriate. There is a new test that can test for genetic abnormalities in the stool sample. This would not replace a colonoscopy but could be used as a screening tool for patients who do not want a colonoscopy. We discussed the importance of early detection of colon cancer.4. Discussed current guidelines with respect to breast examination, mammogram and pap smear for early detection of breast and cervical cancer. Patient advised to follow up with these appointments.5. Discussed safe driving and no use of smart phone while driving6. Age-appropriate immunizations were discussed. A tetanus booster is needed every 10 years. Flu vaccine is recommended every year just before the start of the flu season. Shingles vaccine is recommended after age 50 but not all insurances cover it.Pneumonia vaccine is given after age 65 unless there are certain comorbidities for which it is started earlier.7. Diagnostic labs were discussed. These could include CBC CMP and lipids with fasting blood glucose and insulin levels. Vitamin D and hemoglobin A1c testing might be appropriate. Chart, medications, labs, vital signs reviewed. Dictation was accomplished with the use of [employer] voice recognition software, prone to medical misidentifications and grammatical errors. This is unintentional and the practitioner does try to identify and correct these, but some could still be present. Please do not hesitate to contact practitioner for clarification. All quetsions answered to patients satisfaction. Patient verbalized understanding of diagnosis and treatments explained. To call sooner prior to next visit it any questions/concerns arise. 10/10/2024 Obesity (ICD-10 - E66.9) # JOANN. Re-assess renal function. AVOID NSAIDS #Obesity: Currently on Wegovy 2.4 mg subcu weekly. Tolerating well. #Sleep apnea: Semi- compliant with CPAP. # HTN: Resume antihypertensive # Vaccines: Tdap give today # Screenings: UTD # PHQ-9: 3 Physical WomenPatient seen and examined. Comprehensive discussion was done on the following .1. Nutrition: It is important to follow a healthy diet based on lots of vegetables and legumes and good fat. Avoid processed food and processed carbohydrates. Learn to prepare your own meals. Learn to read labels and avoid high fructose corn syrup, processed chemicals added to increase shelf life and preprepared meals. Avoid fast foods. Learn to eat slowly and plan meals for a week. Try to count calories and be mindful off daily calorie intake. Get into the habit of keeping an eye on your weight by using an appropriate scale. Learn to log exercise and discussed fitness Apps like [employer] which can help keep log off calories taken versus calories burned. Local food should be preferred. Discussed Dirty Dozen Versus Clean Fifteen. Discussed healthy supplements like fish oil, Tumeric, Curcumin, Melatonin, Resveratrol, Probiotics, Vitamin-D, Alpha-Lipoic acid, Vitamin-D and coconut oil.2. It is important to exercise regularly. Is a good habit to walk at least 30-45 minutes a day. Gentle weightlifting with standard precautions to protect the back. Finding activity like cycling or hiking and get into the habit of engaging in it. Stretching before and after the exercises important. It is also important to contact me if there are any problems like shortness of breath, chest pain, back pain and joint or muscle pain associated with the exercise.3. Discussed age appropriate screening guidelines. Colonoscopy needs to start at age 50 with stool for occult blood as appropriate. There is a new test that can test for genetic abnormalities in the stool sample. This would not replace a colonoscopy but could be used as a screening tool for patients who do not want a colonoscopy. We discussed the importance of early detection of colon cancer.4. Discussed current guidelines with respect to breast examination, mammogram and pap smear for early detection of breast and cervical cancer. Patient advised to follow up with these appointments.5. Discussed safe driving and no use of smart phone while driving6. Age-appropriate immunizations were discussed. A tetanus booster is needed every 10 years. Flu vaccine is recommended every year just before the start of the flu season. Shingles vaccine is recommended after age 50 but not all insurances cover it.Pneumonia vaccine is given after age 65 unless there are certain comorbidities for which it is started earlier.7. Diagnostic labs were discussed. These could include CBC CMP and lipids with fasting blood glucose and insulin levels. Vitamin D and hemoglobin A1c testing might be appropriate. Chart, medications, labs, vital signs reviewed. Dictation was accomplished with the use of [employer] voice recognition software, prone to medical misidentifications and grammatical errors. This is unintentional and the practitioner does try to identify and correct these, but some could still be present. Please do not hesitate to contact practitioner for clarification. All quetsions answered to patients satisfaction. Patient verbalized understanding of diagnosis and treatments explained. To call sooner prior to next visit it any questions/concerns arise. 10/10/2024 BMI 37.0-37.9, adult (ICD-10 - Z68.37) # JOANN. Re-assess renal function. AVOID NSAIDS #Obesity: Currently on Wegovy 2.4 mg subcu weekly. Tolerating well. #Sleep apnea: Semi- compliant with CPAP. # HTN: Resume antihypertensive # Vaccines: Tdap give today # Screenings: UTD # PHQ-9: 3 Physical WomenPatient seen and examined. Comprehensive discussion was done on the following .1. Nutrition: It is important to follow a healthy diet based on lots of vegetables and legumes and good fat. Avoid processed food and processed carbohydrates. Learn to prepare your own meals. Learn to read labels and avoid high fructose corn syrup, processed chemicals added to increase shelf life and preprepared meals. Avoid fast foods. Learn to eat slowly and plan meals for a week. Try to count calories and be mindful off daily calorie intake. Get into the habit of keeping an eye on your weight by using an appropriate scale. Learn to log exercise and discussed fitness Apps like [employer] which can help keep log off calories taken versus calories burned. Local food should be preferred. Discussed Dirty Dozen Versus Clean Fifteen. Discussed healthy supplements like fish oil, Tumeric, Curcumin, Melatonin, Resveratrol, Probiotics, Vitamin-D, Alpha-Lipoic acid, Vitamin-D and coconut oil.2. It is important to exercise regularly. Is a good habit to walk at least 30-45 minutes a day. Gentle weightlifting with standard precautions to protect the back. Finding activity like cycling or hiking and get into the habit of engaging in it. Stretching before and after the exercises important. It is also important to contact me if there are any problems like shortness of breath, chest pain, back pain and joint or muscle pain associated with the exercise.3. Discussed age appropriate screening guidelines. Colonoscopy needs to start at age 50 with stool for occult blood as appropriate. There is a new test that can test for genetic abnormalities in the stool sample. This would not replace a colonoscopy but could be used as a screening tool for patients who do not want a colonoscopy. We discussed the importance of early detection of colon cancer.4. Discussed current guidelines with respect to breast examination, mammogram and pap smear for early detection of breast and cervical cancer. Patient advised to follow up with these appointments.5. Discussed safe driving and no use of smart phone while driving6. Age-appropriate immunizations were discussed. A tetanus booster is needed every 10 years. Flu vaccine is recommended every year just before the start of the flu season. Shingles vaccine is recommended after age 50 but not all insurances cover it.Pneumonia vaccine is given after age 65 unless there are certain comorbidities for which it is started earlier.7. Diagnostic labs were discussed. These could include CBC CMP and lipids with fasting blood glucose and insulin levels. Vitamin D and hemoglobin A1c testing might be appropriate. Chart, medications, labs, vital signs reviewed. Dictation was accomplished with the use of [employer] voice recognition software, prone to medical misidentifications and grammatical errors. This is unintentional and the practitioner does try to identify and correct these, but some could still be present. Please do not hesitate to contact practitioner for clarification. All quetsions answered to patients satisfaction. Patient verbalized understanding of diagnosis and treatments explained. To call sooner prior to next visit it any questions/concerns arise. 05/19/2024 FRIDA (obstructive sleep apnea) (ICD-10 - G47.33) #Obesity: Patient has had a discussion with her surgeon (Dr. Chen, [facility]) who agrees she needs medical weight loss management and Contrave is a good start. We discussed that the goal of Contrave is to suppress cravings and curb appetite to the point where she is eating a significant amount less calories. Discussed that the calories she will be consuming should be low in carbohydrates and fats. She is also aware that, as her knees permit, she should be walking 8000-10,000 steps per day. Educated on potential side effects of Contrave including nausea and headache. I will see here in 1 month for weight management 01/17/22: BMI 42.6 weight 256. On Contrave, had some difficulty obtaining, required to go through speciality pharmacy. Reports drastic improvement of cravings. Will attempt resubmission for insurance coverage given pt BMI/risk factors. 03/03/22: BMI 42 and weight 256. Continue Contrave. Reports she has been inconsistent with taking it. States it does help her cravings. She has not been as active. Given holidays, reports she has made poor food choices. Encouraged continued exercise. Pulled back, will given Flexeril. may need prednisone if doesn't improve. 05/26/22: BMI 43 weight 261. Contrave not suppressing appetite or cravings. Has been going to gym. Will submit for Wegovy. Discussed s/e and administration as well as protein intake. Recommend seca scale at next visit. 06/29/22: BMI 44, weight 266. Wegovy given today first dose. See above. 08/10/22: Weight 262.9lbs BMI 43.74 Patient lost 3 pounds currently on Wegovy 0.25mg subq weekly on her second box first week would like to finish out box and then increase dose will increase to 0.5mg subq/weekly 12/07/22: BMI 44, Weight 266. Wegovy denied for PA, due to nto losing enough. Encouraged exercise, eating appropriately, and start Wellbutrin 02/12: BMI 44, Weight 266. Will trial Zepbound 03/26/23: Zepbound denied. Paper Rx given for Wegovy 0.25 mg subcu weekly., then for 0.5 mg. 05/21/23: BMI 43, Weight 275 lbs. Unable to find Wegovy. Given Ozempic sample, to transition to Wegovy. Pt unable to afford compounded. Needs to increase protein intake. 07/17/23: BMI 45, Weight 271. Will increase Wegovy 1.7 mg subcu weekly. Need to add protein and more exercise. Reports she felt like Ozempic worked better. She states she is due for her CPE. Denies constipation. Reports mild GERD. Lays down frequently after eating. 10/17/2023: BMI 42.8, weight 257lbs. Patient congratulated on progress. Taking Wegovy 2.4 mg subcutaneously weekly in addition to Wellbutrin 150 mg daily with adequate appetite suppression and craving control. Denies known side effects. SECA reviewed, reveals fat loss with maintained skeletal muscles. Patient is encouraged to maintain lifestyle changes including making healthy diet choices and cooperating regular physical activity into her routine. 12/31/23: BMI 41, Weight 248 lbs. Continue Wegovy 2.4 mg subcu weekly. Congratulated on efforts. Re-encouraged 100 gm of protein and resistance trianing. 02/14/24: BMI 40, Weifht 245 lb. Will attempt tochange to Zepound 7.5 mg subcu weekly, as she has kind of become stagnant despite adequate exercise onf Wegovy 2.4 mg. Will subtmit PA. Pt aware that there is no lateral dosing between the two medicaiton. Educated on MOA, side effects and storage. 04/01/24: BMI 40, Weight 243. Zepbound was too expensive. Resume Wegovy 2.4 mg subcu weekly, increase wellbutrin to 300 mg po daily. Intentional exercise, and increase protein intake. 05/19/24: BMI 39, Weight 235. Continue Wegovy 2.4 mg subcu weekly. Continue adequate protein intake. # R knee pain. Saw [facility], had steroid injection with improvement of sx. Known severe OA, will knee total joint replacement #Sleep apnea: Inconsistency wearing CPAP. Wears it more often when she notices more snoring. Educated that she should try her best to be more consistent, as untreated sleep apnea is a common cause of poorly controlled hypertension and other adverse health outcomes. # HTN> Resume antihypertensive Total time spent with pt was 30 minutes, with over half being face to face counselling. Medication being prescribed under obesity medicine certified MD, Dr. Fab Salguero Case discussed with collaborating physician Minnie Salguero who reviewed the assessment and plan. Chart, medications, labs, vital signs reviewed. Dictation was accomplished with the use of [employer] voice recognition software, prone to medical misidentifications and grammatical errors. This is unintentional and the practitioner does try to identify and correct these, but some could still be present. Please do not hesitate to contact practitioner for clarification. All questions answered to patients satisfaction. Patient verbalized understanding of diagnosis and treatments explained. To call sooner prior to next visit it any questions/concerns arise. 07/14/2024 FRIDA (obstructive sleep apnea) (ICD-10 - G47.33) #Obesity: Patient has had a discussion with her surgeon (Dr. Chen, [facility]) who agrees she needs medical weight loss management and Contrave is a good start. We discussed that the goal of Contrave is to suppress cravings and curb appetite to the point where she is eating a significant amount less calories. Discussed that the calories she will be consuming should be low in carbohydrates and fats. She is also aware that, as her knees permit, she should be walking 8000-10,000 steps per day. Educated on potential side effects of Contrave including nausea and headache. I will see here in 1 month for weight management 01/17/22: BMI 42.6 weight 256. On Contrave, had some difficulty obtaining, required to go through speciality pharmacy. Reports drastic improvement of cravings. Will attempt resubmission for insurance coverage given pt BMI/risk factors. 03/03/22: BMI 42 and weight 256. Continue Contrave. Reports she has been inconsistent with taking it. States it does help her cravings. She has not been as active. Given holidays, reports she has made poor food choices. Encouraged continued exercise. Pulled back, will given Flexeril. may need prednisone if doesn't improve. 05/26/22: BMI 43 weight 261. Contrave not suppressing appetite or cravings. Has been going to gym. Will submit for Wegovy. Discussed s/e and administration as well as protein intake. Recommend seca scale at next visit. 06/29/22: BMI 44, weight 266. Wegovy given today first dose. See above. 08/10/22: Weight 262.9lbs BMI 43.74 Patient lost 3 pounds currently on Wegovy 0.25mg subq weekly on her second box first week would like to finish out box and then increase dose will increase to 0.5mg subq/weekly 12/07/22: BMI 44, Weight 266. Wegovy denied for PA, due to nto losing enough. Encouraged exercise, eating appropriately, and start Wellbutrin 02/12: BMI 44, Weight 266. Will trial Zepbound 03/26/23: Zepbound denied. Paper Rx given for Wegovy 0.25 mg subcu weekly., then for 0.5 mg. 05/21/23: BMI 43, Weight 275 lbs. Unable to find Wegovy. Given Ozempic sample, to transition to Wegovy. Pt unable to afford compounded. Needs to increase protein intake. 07/17/23: BMI 45, Weight 271. Will increase Wegovy 1.7 mg subcu weekly. Need to add protein and more exercise. Reports she felt like Ozempic worked better. She states she is due for her CPE. Denies constipation. Reports mild GERD. Lays down frequently after eating. 10/17/2023: BMI 42.8, weight 257lbs. Patient congratulated on progress. Taking Wegovy 2.4 mg subcutaneously weekly in addition to Wellbutrin 150 mg daily with adequate appetite suppression and craving control. Denies known side effects. SECA reviewed, reveals fat loss with maintained skeletal muscles. Patient is encouraged to maintain lifestyle changes including making healthy diet choices and cooperating regular physical activity into her routine. 12/31/23: BMI 41, Weight 248 lbs. Continue Wegovy 2.4 mg subcu weekly. Congratulated on efforts. Re-encouraged 100 gm of protein and resistance trianing. 02/14/24: BMI 40, Weifht 245 lb. Will attempt tochange to Zepound 7.5 mg subcu weekly, as she has kind of become stagnant despite adequate exercise onf Wegovy 2.4 mg. Will subtmit PA. Pt aware that there is no lateral dosing between the two medicaiton. Educated on MOA, side effects and storage. 04/01/24: BMI 40, Weight 243. Zepbound was too expensive. Resume Wegovy 2.4 mg subcu weekly, increase wellbutrin to 300 mg po daily. Intentional exercise, and increase protein intake. 05/19/24: BMI 39, Weight 235. Continue Wegovy 2.4 mg subcu weekly. Continue adequate protein intake. 07/14/24: BMI 38, Weight 231. Wegovy 2.4 mg subcu weekly. # R knee pain. Saw [facility], had steroid injection with improvement of sx. Known severe OA, will knee total joint replacement #Sleep apnea: Inconsistency wearing CPAP. Wears it more often when she notices more snoring. Educated that she should try her best to be more consistent, as untreated sleep apnea is a common cause of poorly controlled hypertension and other adverse health outcomes. # HTN> Resume antihypertensive Total time spent with pt was 30 minutes, with over half being face to face counselling. Medication being prescribed under obesity medicine certified MD, Dr. Fab Salguero Case discussed with collaborating physician Minnie Salguero who reviewed the assessment and plan. Chart, medications, labs, vital signs reviewed. Dictation was accomplished with the use of [employer] voice recognition software, prone to medical misidentifications and grammatical errors. This is unintentional and the practitioner does try to identify and correct these, but some could still be present. Please do not hesitate to contact practitioner for clarification. All questions answered to patients satisfaction. Patient verbalized understanding of diagnosis and treatments explained. To call sooner prior to next visit it any questions/concerns arise. 04/24/2024 BMI 40.0-44.9, adult (ICD-10 - Z68.41) # R knee pain. Diony obtain 3-4 view R knee x-ray, as well as US of the RLE for r/o of Bakers Cyst. Refer to [facility] for eval #Obesity: Continue Wegovy 2.4 mg subcu weekly, increase wellbutrin to 300 mg po daily. Intentional exercise, and increase protein intake. #Sleep apnea: Inconsistency wearing CPAP. Wears it more often when she notices more snoring. Educated that she should try her best to be more consistent, as untreated sleep apnea is a common cause of poorly controlled hypertension and other adverse health outcomes. # HTN> Resume antihypertensive Total time spent with pt was 30 minutes, with over half being face to face counselling. Medication being prescribed under obesity medicine certified MD, Dr. Fab Salguero Case discussed with collaborating physician Minnie Salguero who reviewed the assessment and plan. Chart, medications, labs, vital signs reviewed. Dictation was accomplished with the use of [employer] voice recognition software, prone to medical misidentifications and grammatical errors. This is unintentional and the practitioner does try to identify and correct these, but some could still be present. Please do not hesitate to contact practitioner for clarification. All questions answered to patients satisfaction. Patient verbalized understanding of diagnosis and treatments explained. To call sooner prior to next visit it any questions/concerns arise. 04/01/2024 FRIDA (obstructive sleep apnea) (ICD-10 - G47.33) #Obesity: Patient has had a discussion with her surgeon (Dr. Chen, [facility]) who agrees she needs medical weight loss management and Contrave is a good start. We discussed that the goal of Contrave is to suppress cravings and curb appetite to the point where she is eating a significant amount less calories. Discussed that the calories she will be consuming should be low in carbohydrates and fats. She is also aware that, as her knees permit, she should be walking 8000-10,000 steps per day. Educated on potential side effects of Contrave including nausea and headache. I will see here in 1 month for weight management 01/17/22: BMI 42.6 weight 256. On Contrave, had some difficulty obtaining, required to go through speciality pharmacy. Reports drastic improvement of cravings. Will attempt resubmission for insurance coverage given pt BMI/risk factors. 03/03/22: BMI 42 and weight 256. Continue Contrave. Reports she has been inconsistent with taking it. States it does help her cravings. She has not been as active. Given holidays, reports she has made poor food choices. Encouraged continued exercise. Pulled back, will given Flexeril. may need prednisone if doesn't improve. 05/26/22: BMI 43 weight 261. Contrave not suppressing appetite or cravings. Has been going to gym. Will submit for Wegovy. Discussed s/e and administration as well as protein intake. Recommend seca scale at next visit. 06/29/22: BMI 44, weight 266. Wegovy given today first dose. See above. 08/10/22: Weight 262.9lbs BMI 43.74 Patient lost 3 pounds currently on Wegovy 0.25mg subq weekly on her second box first week would like to finish out box and then increase dose will increase to 0.5mg subq/weekly 12/07/22: BMI 44, Weight 266. Wegovy denied for PA, due to nto losing enough. Encouraged exercise, eating appropriately, and start Wellbutrin 02/12: BMI 44, Weight 266. Will trial Zepbound 03/26/23: Zepbound denied. Paper Rx given for Wegovy 0.25 mg subcu weekly., then for 0.5 mg. 05/21/23: BMI 43, Weight 275 lbs. Unable to find Wegovy. Given Ozempic sample, to transition to Wegovy. Pt unable to afford compounded. Needs to increase protein intake. 07/17/23: BMI 45, Weight 271. Will increase Wegovy 1.7 mg subcu weekly. Need to add protein and more exercise. Reports she felt like Ozempic worked better. She states she is due for her CPE. Denies constipation. Reports mild GERD. Lays down frequently after eating. 10/17/2023: BMI 42.8, weight 257lbs. Patient congratulated on progress. Taking Wegovy 2.4 mg subcutaneously weekly in addition to Wellbutrin 150 mg daily with adequate appetite suppression and craving control. Denies known side effects. SECA reviewed, reveals fat loss with maintained skeletal muscles. Patient is encouraged to maintain lifestyle changes including making healthy diet choices and cooperating regular physical activity into her routine. 12/31/23: BMI 41, Weight 248 lbs. Continue Wegovy 2.4 mg subcu weekly. Congratulated on efforts. Re-encouraged 100 gm of protein and resistance trianing. 02/14/24: BMI 40, Weifht 245 lb. Will attempt tochange to Zepound 7.5 mg subcu weekly, as she has kind of become stagnant despite adequate exercise onf Wegovy 2.4 mg. Will subtmit PA. Pt aware that there is no lateral dosing between the two medicaiton. Educated on MOA, side effects and storage. 04/01/24: BMI 40, Weight 243. Zepbound was too expensive. Resume Wegovy 2.4 mg subcu weekly, increase wellbutrin to 300 mg po daily. Intentional exercise, and increase protein intake. #Sleep apnea: Inconsistency wearing CPAP. Wears it more often when she notices more snoring. Educated that she should try her best to be more consistent, as untreated sleep apnea is a common cause of poorly controlled hypertension and other adverse health outcomes. # HTN> Resume antihypertensive Total time spent with pt was 30 minutes, with over half being face to face counselling. Medication being prescribed under obesity medicine certified MD, Dr. Fab Salguero Case discussed with collaborating physician Minnie Salguero who reviewed the assessment and plan. Chart, medications, labs, vital signs reviewed. Dictation was accomplished with the use of [employer] voice recognition software, prone to medical misidentifications and grammatical errors. This is unintentional and the practitioner does try to identify and correct these, but some could still be present. Please do not hesitate to contact practitioner for clarification. All questions answered to patients satisfaction. Patient verbalized understanding of diagnosis and treatments explained. To call sooner prior to next visit it any questions/concerns arise. 02/14/2024 FRIDA (obstructive sleep apnea) (ICD-10 - G47.33) #Obesity: Patient has had a discussion with her surgeon (Dr. Chen, [facility]) who agrees she needs medical weight loss management and Contrave is a good start. We discussed that the goal of Contrave is to suppress cravings and curb appetite to the point where she is eating a significant amount less calories. Discussed that the calories she will be consuming should be low in carbohydrates and fats. She is also aware that, as her knees permit, she should be walking 8000-10,000 steps per day. Educated on potential side effects of Contrave including nausea and headache. I will see here in 1 month for weight management 01/17/22: BMI 42.6 weight 256. On Contrave, had some difficulty obtaining, required to go through speciality pharmacy. Reports drastic improvement of cravings. Will attempt resubmission for insurance coverage given pt BMI/risk factors. 03/03/22: BMI 42 and weight 256. Continue Contrave. Reports she has been inconsistent with taking it. States it does help her cravings. She has not been as active. Given holidays, reports she has made poor food choices. Encouraged continued exercise. Pulled back, will given Flexeril. may need prednisone if doesn't improve. 05/26/22: BMI 43 weight 261. Contrave not suppressing appetite or cravings. Has been going to gym. Will submit for Wegovy. Discussed s/e and administration as well as protein intake. Recommend seca scale at next visit. 06/29/22: BMI 44, weight 266. Wegovy given today first dose. See above. 08/10/22: Weight 262.9lbs BMI 43.74 Patient lost 3 pounds currently on Wegovy 0.25mg subq weekly on her second box first week would like to finish out box and then increase dose will increase to 0.5mg subq/weekly 12/07/22: BMI 44, Weight 266. Wegovy denied for PA, due to nto losing enough. Encouraged exercise, eating appropriately, and start Wellbutrin 02/12: BMI 44, Weight 266. Will trial Zepbound 03/26/23: Zepbound denied. Paper Rx given for Wegovy 0.25 mg subcu weekly., then for 0.5 mg. 05/21/23: BMI 43, Weight 275 lbs. Unable to find Wegovy. Given Ozempic sample, to transition to Wegovy. Pt unable to afford compounded. Needs to increase protein intake. 07/17/23: BMI 45, Weight 271. Will increase Wegovy 1.7 mg subcu weekly. Need to add protein and more exercise. Reports she felt like Ozempic worked better. She states she is due for her CPE. Denies constipation. Reports mild GERD. Lays down frequently after eating. 10/17/2023: BMI 42.8, weight 257lbs. Patient congratulated on progress. Taking Wegovy 2.4 mg subcutaneously weekly in addition to Wellbutrin 150 mg daily with adequate appetite suppression and craving control. Denies known side effects. SECA reviewed, reveals fat loss with maintained skeletal muscles. Patient is encouraged to maintain lifestyle changes including making healthy diet choices and cooperating regular physical activity into her routine. 12/31/23: BMI 41, Weight 248 lbs. Continue Wegovy 2.4 mg subcu weekly. Congratulated on efforts. Re-encouraged 100 gm of protein and resistance trianing. 02/14/24: BMI 40, Weifht 245 lb. Will attempt tochange to Zepound 7.5 mg subcu weekly, as she has kind of become stagnant despite adequate exercise onf Wegovy 2.4 mg. Will subtmit PA. Pt aware that there is no lateral dosing between the two medicaiton. Educated on MOA, side effects and storage. #Sleep apnea: Inconsistency wearing CPAP. Wears it more often when she notices more snoring. Educated that she should try her best to be more consistent, as untreated sleep apnea is a common cause of poorly controlled hypertension and other adverse health outcomes. # HTN> Resume antihypertensive Total time spent with pt was 30 minutes, with over half being face to face counselling. Case discussed with collaborating physician Minnie Salguero who reviewed the assessment and plan. Chart, medications, labs, vital signs reviewed. Dictation was accomplished with the use of [employer] voice recognition software, prone to medical misidentifications and grammatical errors. This is unintentional and the practitioner does try to identify and correct these, but some could still be present. Please do not hesitate to contact practitioner for clarification. All questions answered to patients satisfaction. Patient verbalized understanding of diagnosis and treatments explained. To call sooner prior to next visit it any questions/concerns arise. 12/31/2023 FRIDA (obstructive sleep apnea) (ICD-10 - G47.33) #Obesity: Patient has had a discussion with her surgeon (Dr. Chen, [facility]) who agrees she needs medical weight loss management and Contrave is a good start. We discussed that the goal of Contrave is to suppress cravings and curb appetite to the point where she is eating a significant amount less calories. Discussed that the calories she will be consuming should be low in carbohydrates and fats. She is also aware that, as her knees permit, she should be walking 8000-10,000 steps per day. Educated on potential side effects of Contrave including nausea and headache. I will see here in 1 month for weight management 01/17/22: BMI 42.6 weight 256. On Contrave, had some difficulty obtaining, required to go through speciality pharmacy. Reports drastic improvement of cravings. Will attempt resubmission for insurance coverage given pt BMI/risk factors. 03/03/22: BMI 42 and weight 256. Continue Contrave. Reports she has been inconsistent with taking it. States it does help her cravings. She has not been as active. Given holidays, reports she has made poor food choices. Encouraged continued exercise. Pulled back, will given Flexeril. may need prednisone if doesn't improve. 05/26/22: BMI 43 weight 261. Contrave not suppressing appetite or cravings. Has been going to gym. Will submit for Wegovy. Discussed s/e and administration as well as protein intake. Recommend seca scale at next visit. 06/29/22: BMI 44, weight 266. Wegovy given today first dose. See above. 08/10/22: Weight 262.9lbs BMI 43.74 Patient lost 3 pounds currently on Wegovy 0.25mg subq weekly on her second box first week would like to finish out box and then increase dose will increase to 0.5mg subq/weekly 12/07/22: BMI 44, Weight 266. Wegovy denied for PA, due to nto losing enough. Encouraged exercise, eating appropriately, and start Wellbutrin 02/12: BMI 44, Weight 266. Will trial Zepbound 03/26/23: Zepbound denied. Paper Rx given for Wegovy 0.25 mg subcu weekly., then for 0.5 mg. 05/21/23: BMI 43, Weight 275 lbs. Unable to find Wegovy. Given Ozempic sample, to transition to Wegovy. Pt unable to afford compounded. Needs to increase protein intake. 07/17/23: BMI 45, Weight 271. Will increase Wegovy 1.7 mg subcu weekly. Need to add protein and more exercise. Reports she felt like Ozempic worked better. She states she is due for her CPE. Denies constipation. Reports mild GERD. Lays down frequently after eating. 10/17/2023: BMI 42.8, weight 257lbs. Patient congratulated on progress. Taking Wegovy 2.4 mg subcutaneously weekly in addition to Wellbutrin 150 mg daily with adequate appetite suppression and craving control. Denies known side effects. SECA reviewed, reveals fat loss with maintained skeletal muscles. Patient is encouraged to maintain lifestyle changes including making healthy diet choices and cooperating regular physical activity into her routine. 12/31/23: BMI 41, Weight 248 lbs. Continue Wegovy 2.4 mg subcu weekly. Congratulated on efforts. Re-encouraged 100 gm of protein and resistance trianing. #Sleep apnea: Inconsistency wearing CPAP. Wears it more often when she notices more snoring. Educated that she should try her best to be more consistent, as untreated sleep apnea is a common cause of poorly controlled hypertension and other adverse health outcomes. # HTN> Resume antihypertensive Total time spent with pt was 30 minutes, with over half being face to face counselling. Case discussed with collaborating physician Min Salguero who reviewed the assessment and plan. Chart, medications, labs, vital signs reviewed. Dictation was accomplished with the use of [employer] voice recognition software, prone to medical misidentifications and grammatical errors. This is unintentional and the practitioner does try to identify and correct these, but some could still be present. Please do not hesitate to contact practitioner for clarification. All questions answered to patients satisfaction. Patient verbalized understanding of diagnosis and treatments explained. To call sooner prior to next visit it any questions/concerns arise. 12/31/2023 Dyslipidemia (ICD-10 - E78.5) #Obesity: Patient has had a discussion with her surgeon (Dr. Chen, [facility]) who agrees she needs medical weight loss management and Contrave is a good start. We discussed that the goal of Contrave is to suppress cravings and curb appetite to the point where she is eating a significant amount less calories. Discussed that the calories she will be consuming should be low in carbohydrates and fats. She is also aware that, as her knees permit, she should be walking 8000-10,000 steps per day. Educated on potential side effects of Contrave including nausea and headache. I will see here in 1 month for weight management 01/17/22: BMI 42.6 weight 256. On Contrave, had some difficulty obtaining, required to go through speciality pharmacy. Reports drastic improvement of cravings. Will attempt resubmission for insurance coverage given pt BMI/risk factors. 03/03/22: BMI 42 and weight 256. Continue Contrave. Reports she has been inconsistent with taking it. States it does help her cravings. She has not been as active. Given holidays, reports she has made poor food choices. Encouraged continued exercise. Pulled back, will given Flexeril. may need prednisone if doesn't improve. 05/26/22: BMI 43 weight 261. Contrave not suppressing appetite or cravings. Has been going to gym. Will submit for Wegovy. Discussed s/e and administration as well as protein intake. Recommend seca scale at next visit. 06/29/22: BMI 44, weight 266. Wegovy given today first dose. See above. 08/10/22: Weight 262.9lbs BMI 43.74 Patient lost 3 pounds currently on Wegovy 0.25mg subq weekly on her second box first week would like to finish out box and then increase dose will increase to 0.5mg subq/weekly 12/07/22: BMI 44, Weight 266. Wegovy denied for PA, due to nto losing enough. Encouraged exercise, eating appropriately, and start Wellbutrin 02/12: BMI 44, Weight 266. Will trial Zepbound 03/26/23: Zepbound denied. Paper Rx given for Wegovy 0.25 mg subcu weekly., then for 0.5 mg. 05/21/23: BMI 43, Weight 275 lbs. Unable to find Wegovy. Given Ozempic sample, to transition to Wegovy. Pt unable to afford compounded. Needs to increase protein intake. 07/17/23: BMI 45, Weight 271. Will increase Wegovy 1.7 mg subcu weekly. Need to add protein and more exercise. Reports she felt like Ozempic worked better. She states she is due for her CPE. Denies constipation. Reports mild GERD. Lays down frequently after eating. 10/17/2023: BMI 42.8, weight 257lbs. Patient congratulated on progress. Taking Wegovy 2.4 mg subcutaneously weekly in addition to Wellbutrin 150 mg daily with adequate appetite suppression and craving control. Denies known side effects. SECA reviewed, reveals fat loss with maintained skeletal muscles. Patient is encouraged to maintain lifestyle changes including making healthy diet choices and cooperating regular physical activity into her routine. 12/31/23: BMI 41, Weight 248 lbs. Continue Wegovy 2.4 mg subcu weekly. Congratulated on efforts. Re-encouraged 100 gm of protein and resistance trianing. #Sleep apnea: Inconsistency wearing CPAP. Wears it more often when she notices more snoring. Educated that she should try her best to be more consistent, as untreated sleep apnea is a common cause of poorly controlled hypertension and other adverse health outcomes. # HTN> Resume antihypertensive Total time spent with pt was 30 minutes, with over half being face to face counselling. Case discussed with collaborating physician Min Salguero who reviewed the assessment and plan. Chart, medications, labs, vital signs reviewed. Dictation was accomplished with the use of [employer] voice recognition software, prone to medical misidentifications and grammatical errors. This is unintentional and the practitioner does try to identify and correct these, but some could still be present. Please do not hesitate to contact practitioner for clarification. All questions answered to patients satisfaction. Patient verbalized understanding of diagnosis and treatments explained. To call sooner prior to next visit it any questions/concerns arise. 02/14/2024 Dyslipidemia (ICD-10 - E78.5) #Obesity: Patient has had a discussion with her surgeon (Dr. Chen, [facility]) who agrees she needs medical weight loss management and Contrave is a good start. We discussed that the goal of Contrave is to suppress cravings and curb appetite to the point where she is eating a significant amount less calories. Discussed that the calories she will be consuming should be low in carbohydrates and fats. She is also aware that, as her knees permit, she should be walking 8000-10,000 steps per day. Educated on potential side effects of Contrave including nausea and headache. I will see here in 1 month for weight management 01/17/22: BMI 42.6 weight 256. On Contrave, had some difficulty obtaining, required to go through speciality pharmacy. Reports drastic improvement of cravings. Will attempt resubmission for insurance coverage given pt BMI/risk factors. 03/03/22: BMI 42 and weight 256. Continue Contrave. Reports she has been inconsistent with taking it. States it does help her cravings. She has not been as active. Given holidays, reports she has made poor food choices. Encouraged continued exercise. Pulled back, will given Flexeril. may need prednisone if doesn't improve. 05/26/22: BMI 43 weight 261. Contrave not suppressing appetite or cravings. Has been going to gym. Will submit for Wegovy. Discussed s/e and administration as well as protein intake. Recommend seca scale at next visit. 06/29/22: BMI 44, weight 266. Wegovy given today first dose. See above. 08/10/22: Weight 262.9lbs BMI 43.74 Patient lost 3 pounds currently on Wegovy 0.25mg subq weekly on her second box first week would like to finish out box and then increase dose will increase to 0.5mg subq/weekly 12/07/22: BMI 44, Weight 266. Wegovy denied for PA, due to nto losing enough. Encouraged exercise, eating appropriately, and start Wellbutrin 02/12: BMI 44, Weight 266. Will trial Zepbound 03/26/23: Zepbound denied. Paper Rx given for Wegovy 0.25 mg subcu weekly., then for 0.5 mg. 05/21/23: BMI 43, Weight 275 lbs. Unable to find Wegovy. Given Ozempic sample, to transition to Wegovy. Pt unable to afford compounded. Needs to increase protein intake. 07/17/23: BMI 45, Weight 271. Will increase Wegovy 1.7 mg subcu weekly. Need to add protein and more exercise. Reports she felt like Ozempic worked better. She states she is due for her CPE. Denies constipation. Reports mild GERD. Lays down frequently after eating. 10/17/2023: BMI 42.8, weight 257lbs. Patient congratulated on progress. Taking Wegovy 2.4 mg subcutaneously weekly in addition to Wellbutrin 150 mg daily with adequate appetite suppression and craving control. Denies known side effects. SECA reviewed, reveals fat loss with maintained skeletal muscles. Patient is encouraged to maintain lifestyle changes including making healthy diet choices and cooperating regular physical activity into her routine. 12/31/23: BMI 41, Weight 248 lbs. Continue Wegovy 2.4 mg subcu weekly. Congratulated on efforts. Re-encouraged 100 gm of protein and resistance trianing. 02/14/24: BMI 40, Weifht 245 lb. Will attempt tochange to Zepound 7.5 mg subcu weekly, as she has kind of become stagnant despite adequate exercise onf Wegovy 2.4 mg. Will subtmit PA. Pt aware that there is no lateral dosing between the two medicaiton. Educated on MOA, side effects and storage. #Sleep apnea: Inconsistency wearing CPAP. Wears it more often when she notices more snoring. Educated that she should try her best to be more consistent, as untreated sleep apnea is a common cause of poorly controlled hypertension and other adverse health outcomes. # HTN> Resume antihypertensive Total time spent with pt was 30 minutes, with over half being face to face counselling. Case discussed with collaborating physician Minnie Salguero who reviewed the assessment and plan. Chart, medications, labs, vital signs reviewed. Dictation was accomplished with the use of [employer] voice recognition software, prone to medical misidentifications and grammatical errors. This is unintentional and the practitioner does try to identify and correct these, but some could still be present. Please do not hesitate to contact practitioner for clarification. All questions answered to patients satisfaction. Patient verbalized understanding of diagnosis and treatments explained. To call sooner prior to next visit it any questions/concerns arise. 04/01/2024 Dyslipidemia (ICD-10 - E78.5) #Obesity: Patient has had a discussion with her surgeon (Dr. Chen, [facility]) who agrees she needs medical weight loss management and Contrave is a good start. We discussed that the goal of Contrave is to suppress cravings and curb appetite to the point where she is eating a significant amount less calories. Discussed that the calories she will be consuming should be low in carbohydrates and fats. She is also aware that, as her knees permit, she should be walking 8000-10,000 steps per day. Educated on potential side effects of Contrave including nausea and headache. I will see here in 1 month for weight management 01/17/22: BMI 42.6 weight 256. On Contrave, had some difficulty obtaining, required to go through speciality pharmacy. Reports drastic improvement of cravings. Will attempt resubmission for insurance coverage given pt BMI/risk factors. 03/03/22: BMI 42 and weight 256. Continue Contrave. Reports she has been inconsistent with taking it. States it does help her cravings. She has not been as active. Given holidays, reports she has made poor food choices. Encouraged continued exercise. Pulled back, will given Flexeril. may need prednisone if doesn't improve. 05/26/22: BMI 43 weight 261. Contrave not suppressing appetite or cravings. Has been going to gym. Will submit for Wegovy. Discussed s/e and administration as well as protein intake. Recommend seca scale at next visit. 06/29/22: BMI 44, weight 266. Wegovy given today first dose. See above. 08/10/22: Weight 262.9lbs BMI 43.74 Patient lost 3 pounds currently on Wegovy 0.25mg subq weekly on her second box first week would like to finish out box and then increase dose will increase to 0.5mg subq/weekly 12/07/22: BMI 44, Weight 266. Wegovy denied for PA, due to nto losing enough. Encouraged exercise, eating appropriately, and start Wellbutrin 02/12: BMI 44, Weight 266. Will trial Zepbound 03/26/23: Zepbound denied. Paper Rx given for Wegovy 0.25 mg subcu weekly., then for 0.5 mg. 05/21/23: BMI 43, Weight 275 lbs. Unable to find Wegovy. Given Ozempic sample, to transition to Wegovy. Pt unable to afford compounded. Needs to increase protein intake. 07/17/23: BMI 45, Weight 271. Will increase Wegovy 1.7 mg subcu weekly. Need to add protein and more exercise. Reports she felt like Ozempic worked better. She states she is due for her CPE. Denies constipation. Reports mild GERD. Lays down frequently after eating. 10/17/2023: BMI 42.8, weight 257lbs. Patient congratulated on progress. Taking Wegovy 2.4 mg subcutaneously weekly in addition to Wellbutrin 150 mg daily with adequate appetite suppression and craving control. Denies known side effects. SECA reviewed, reveals fat loss with maintained skeletal muscles. Patient is encouraged to maintain lifestyle changes including making healthy diet choices and cooperating regular physical activity into her routine. 12/31/23: BMI 41, Weight 248 lbs. Continue Wegovy 2.4 mg subcu weekly. Congratulated on efforts. Re-encouraged 100 gm of protein and resistance trianing. 02/14/24: BMI 40, Weifht 245 lb. Will attempt tochange to Zepound 7.5 mg subcu weekly, as she has kind of become stagnant despite adequate exercise onf Wegovy 2.4 mg. Will subtmit PA. Pt aware that there is no lateral dosing between the two medicaiton. Educated on MOA, side effects and storage. 04/01/24: BMI 40, Weight 243. Zepbound was too expensive. Resume Wegovy 2.4 mg subcu weekly, increase wellbutrin to 300 mg po daily. Intentional exercise, and increase protein intake. #Sleep apnea: Inconsistency wearing CPAP. Wears it more often when she notices more snoring. Educated that she should try her best to be more consistent, as untreated sleep apnea is a common cause of poorly controlled hypertension and other adverse health outcomes. # HTN> Resume antihypertensive Total time spent with pt was 30 minutes, with over half being face to face counselling. Medication being prescribed under obesity medicine certified MD, Dr. Fab Salguero Case discussed with collaborating physician Minnie Salguero who reviewed the assessment and plan. Chart, medications, labs, vital signs reviewed. Dictation was accomplished with the use of [employer] voice recognition software, prone to medical misidentifications and grammatical errors. This is unintentional and the practitioner does try to identify and correct these, but some could still be present. Please do not hesitate to contact practitioner for clarification. All questions answered to patients satisfaction. Patient verbalized understanding of diagnosis and treatments explained. To call sooner prior to next visit it any questions/concerns arise. 04/24/2024 FRIDA (obstructive sleep apnea) (ICD-10 - G47.33) # R knee pain. Diony obtain 3-4 view R knee x-ray, as well as US of the RLE for r/o of Bakers Cyst. Refer to [facility] for eval #Obesity: Continue Wegovy 2.4 mg subcu weekly, increase wellbutrin to 300 mg po daily. Intentional exercise, and increase protein intake. #Sleep apnea: Inconsistency wearing CPAP. Wears it more often when she notices more snoring. Educated that she should try her best to be more consistent, as untreated sleep apnea is a common cause of poorly controlled hypertension and other adverse health outcomes. # HTN> Resume antihypertensive Total time spent with pt was 30 minutes, with over half being face to face counselling. Medication being prescribed under obesity medicine certified MD, Dr. Fab Salguero Case discussed with collaborating physician Minnie Salguero who reviewed the assessment and plan. Chart, medications, labs, vital signs reviewed. Dictation was accomplished with the use of [employer] voice recognition software, prone to medical misidentifications and grammatical errors. This is unintentional and the practitioner does try to identify and correct these, but some could still be present. Please do not hesitate to contact practitioner for clarification. All questions answered to patients satisfaction. Patient verbalized understanding of diagnosis and treatments explained. To call sooner prior to next visit it any questions/concerns arise. 07/14/2024 Dyslipidemia (ICD-10 - E78.5) #Obesity: Patient has had a discussion with her surgeon (Dr. Chen, [facility]) who agrees she needs medical weight loss management and Contrave is a good start. We discussed that the goal of Contrave is to suppress cravings and curb appetite to the point where she is eating a significant amount less calories. Discussed that the calories she will be consuming should be low in carbohydrates and fats. She is also aware that, as her knees permit, she should be walking 8000-10,000 steps per day. Educated on potential side effects of Contrave including nausea and headache. I will see here in 1 month for weight management 01/17/22: BMI 42.6 weight 256. On Contrave, had some difficulty obtaining, required to go through speciality pharmacy. Reports drastic improvement of cravings. Will attempt resubmission for insurance coverage given pt BMI/risk factors. 03/03/22: BMI 42 and weight 256. Continue Contrave. Reports she has been inconsistent with taking it. States it does help her cravings. She has not been as active. Given holidays, reports she has made poor food choices. Encouraged continued exercise. Pulled back, will given Flexeril. may need prednisone if doesn't improve. 05/26/22: BMI 43 weight 261. Contrave not suppressing appetite or cravings. Has been going to gym. Will submit for Wegovy. Discussed s/e and administration as well as protein intake. Recommend seca scale at next visit. 06/29/22: BMI 44, weight 266. Wegovy given today first dose. See above. 08/10/22: Weight 262.9lbs BMI 43.74 Patient lost 3 pounds currently on Wegovy 0.25mg subq weekly on her second box first week would like to finish out box and then increase dose will increase to 0.5mg subq/weekly 12/07/22: BMI 44, Weight 266. Wegovy denied for PA, due to nto losing enough. Encouraged exercise, eating appropriately, and start Wellbutrin 02/12: BMI 44, Weight 266. Will trial Zepbound 03/26/23: Zepbound denied. Paper Rx given for Wegovy 0.25 mg subcu weekly., then for 0.5 mg. 05/21/23: BMI 43, Weight 275 lbs. Unable to find Wegovy. Given Ozempic sample, to transition to Wegovy. Pt unable to afford compounded. Needs to increase protein intake. 07/17/23: BMI 45, Weight 271. Will increase Wegovy 1.7 mg subcu weekly. Need to add protein and more exercise. Reports she felt like Ozempic worked better. She states she is due for her CPE. Denies constipation. Reports mild GERD. Lays down frequently after eating. 10/17/2023: BMI 42.8, weight 257lbs. Patient congratulated on progress. Taking Wegovy 2.4 mg subcutaneously weekly in addition to Wellbutrin 150 mg daily with adequate appetite suppression and craving control. Denies known side effects. SECA reviewed, reveals fat loss with maintained skeletal muscles. Patient is encouraged to maintain lifestyle changes including making healthy diet choices and cooperating regular physical activity into her routine. 12/31/23: BMI 41, Weight 248 lbs. Continue Wegovy 2.4 mg subcu weekly. Congratulated on efforts. Re-encouraged 100 gm of protein and resistance trianing. 02/14/24: BMI 40, Weifht 245 lb. Will attempt tochange to Zepound 7.5 mg subcu weekly, as she has kind of become stagnant despite adequate exercise onf Wegovy 2.4 mg. Will subtmit PA. Pt aware that there is no lateral dosing between the two medicaiton. Educated on MOA, side effects and storage. 04/01/24: BMI 40, Weight 243. Zepbound was too expensive. Resume Wegovy 2.4 mg subcu weekly, increase wellbutrin to 300 mg po daily. Intentional exercise, and increase protein intake. 05/19/24: BMI 39, Weight 235. Continue Wegovy 2.4 mg subcu weekly. Continue adequate protein intake. 07/14/24: BMI 38, Weight 231. Wegovy 2.4 mg subcu weekly. # R knee pain. Saw [facility], had steroid injection with improvement of sx. Known severe OA, will knee total joint replacement #Sleep apnea: Inconsistency wearing CPAP. Wears it more often when she notices more snoring. Educated that she should try her best to be more consistent, as untreated sleep apnea is a common cause of poorly controlled hypertension and other adverse health outcomes. # HTN> Resume antihypertensive Total time spent with pt was 30 minutes, with over half being face to face counselling. Medication being prescribed under obesity medicine certified MD, Dr. Fab Salguero Case discussed with collaborating physician Minnie Salguero who reviewed the assessment and plan. Chart, medications, labs, vital signs reviewed. Dictation was accomplished with the use of [employer] voice recognition software, prone to medical misidentifications and grammatical errors. This is unintentional and the practitioner does try to identify and correct these, but some could still be present. Please do not hesitate to contact practitioner for clarification. All questions answered to patients satisfaction. Patient verbalized understanding of diagnosis and treatments explained. To call sooner prior to next visit it any questions/concerns arise. 05/19/2024 Dyslipidemia (ICD-10 - E78.5) #Obesity: Patient has had a discussion with her surgeon (Dr. Chen, [facility]) who agrees she needs medical weight loss management and Contrave is a good start. We discussed that the goal of Contrave is to suppress cravings and curb appetite to the point where she is eating a significant amount less calories. Discussed that the calories she will be consuming should be low in carbohydrates and fats. She is also aware that, as her knees permit, she should be walking 8000-10,000 steps per day. Educated on potential side effects of Contrave including nausea and headache. I will see here in 1 month for weight management 01/17/22: BMI 42.6 weight 256. On Contrave, had some difficulty obtaining, required to go through speciality pharmacy. Reports drastic improvement of cravings. Will attempt resubmission for insurance coverage given pt BMI/risk factors. 03/03/22: BMI 42 and weight 256. Continue Contrave. Reports she has been inconsistent with taking it. States it does help her cravings. She has not been as active. Given holidays, reports she has made poor food choices. Encouraged continued exercise. Pulled back, will given Flexeril. may need prednisone if doesn't improve. 05/26/22: BMI 43 weight 261. Contrave not suppressing appetite or cravings. Has been going to gym. Will submit for Wegovy. Discussed s/e and administration as well as protein intake. Recommend seca scale at next visit. 06/29/22: BMI 44, weight 266. Wegovy given today first dose. See above. 08/10/22: Weight 262.9lbs BMI 43.74 Patient lost 3 pounds currently on Wegovy 0.25mg subq weekly on her second box first week would like to finish out box and then increase dose will increase to 0.5mg subq/weekly 12/07/22: BMI 44, Weight 266. Wegovy denied for PA, due to nto losing enough. Encouraged exercise, eating appropriately, and start Wellbutrin 02/12: BMI 44, Weight 266. Will trial Zepbound 03/26/23: Zepbound denied. Paper Rx given for Wegovy 0.25 mg subcu weekly., then for 0.5 mg. 05/21/23: BMI 43, Weight 275 lbs. Unable to find Wegovy. Given Ozempic sample, to transition to Wegovy. Pt unable to afford compounded. Needs to increase protein intake. 07/17/23: BMI 45, Weight 271. Will increase Wegovy 1.7 mg subcu weekly. Need to add protein and more exercise. Reports she felt like Ozempic worked better. She states she is due for her CPE. Denies constipation. Reports mild GERD. Lays down frequently after eating. 10/17/2023: BMI 42.8, weight 257lbs. Patient congratulated on progress. Taking Wegovy 2.4 mg subcutaneously weekly in addition to Wellbutrin 150 mg daily with adequate appetite suppression and craving control. Denies known side effects. SECA reviewed, reveals fat loss with maintained skeletal muscles. Patient is encouraged to maintain lifestyle changes including making healthy diet choices and cooperating regular physical activity into her routine. 12/31/23: BMI 41, Weight 248 lbs. Continue Wegovy 2.4 mg subcu weekly. Congratulated on efforts. Re-encouraged 100 gm of protein and resistance trianing. 02/14/24: BMI 40, Weifht 245 lb. Will attempt tochange to Zepound 7.5 mg subcu weekly, as she has kind of become stagnant despite adequate exercise onf Wegovy 2.4 mg. Will subtmit PA. Pt aware that there is no lateral dosing between the two medicaiton. Educated on MOA, side effects and storage. 04/01/24: BMI 40, Weight 243. Zepbound was too expensive. Resume Wegovy 2.4 mg subcu weekly, increase wellbutrin to 300 mg po daily. Intentional exercise, and increase protein intake. 05/19/24: BMI 39, Weight 235. Continue Wegovy 2.4 mg subcu weekly. Continue adequate protein intake. # R knee pain. Saw [facility], had steroid injection with improvement of sx. Known severe OA, will knee total joint replacement #Sleep apnea: Inconsistency wearing CPAP. Wears it more often when she notices more snoring. Educated that she should try her best to be more consistent, as untreated sleep apnea is a common cause of poorly controlled hypertension and other adverse health outcomes. # HTN> Resume antihypertensive Total time spent with pt was 30 minutes, with over half being face to face counselling. Medication being prescribed under obesity medicine certified MD, Dr. Fab Salguero Case discussed with collaborating physician Minnie Salguero who reviewed the assessment and plan. Chart, medications, labs, vital signs reviewed. Dictation was accomplished with the use of [employer] voice recognition software, prone to medical misidentifications and grammatical errors. This is unintentional and the practitioner does try to identify and correct these, but some could still be present. Please do not hesitate to contact practitioner for clarification. All questions answered to patients satisfaction. Patient verbalized understanding of diagnosis and treatments explained. To call sooner prior to next visit it any questions/concerns arise. 10/10/2024 FRIDA (obstructive sleep apnea) (ICD-10 - G47.33) # JOANN. Re-assess renal function. AVOID NSAIDS #Obesity: Currently on Wegovy 2.4 mg subcu weekly. Tolerating well. #Sleep apnea: Semi- compliant with CPAP. # HTN: Resume antihypertensive # Vaccines: Tdap give today # Screenings: UTD # PHQ-9: 3 Physical WomenPatient seen and examined. Comprehensive discussion was done on the following .1. Nutrition: It is important to follow a healthy diet based on lots of vegetables and legumes and good fat. Avoid processed food and processed carbohydrates. Learn to prepare your own meals. Learn to read labels and avoid high fructose corn syrup, processed chemicals added to increase shelf life and preprepared meals. Avoid fast foods. Learn to eat slowly and plan meals for a week. Try to count calories and be mindful off daily calorie intake. Get into the habit of keeping an eye on your weight by using an appropriate scale. Learn to log exercise and discussed fitness Apps like [employer] which can help keep log off calories taken versus calories burned. Local food should be preferred. Discussed Dirty Dozen Versus Clean Fifteen. Discussed healthy supplements like fish oil, Tumeric, Curcumin, Melatonin, Resveratrol, Probiotics, Vitamin-D, Alpha-Lipoic acid, Vitamin-D and coconut oil.2. It is important to exercise regularly. Is a good habit to walk at least 30-45 minutes a day. Gentle weightlifting with standard precautions to protect the back. Finding activity like cycling or hiking and get into the habit of engaging in it. Stretching before and after the exercises important. It is also important to contact me if there are any problems like shortness of breath, chest pain, back pain and joint or muscle pain associated with the exercise.3. Discussed age appropriate screening guidelines. Colonoscopy needs to start at age 50 with stool for occult blood as appropriate. There is a new test that can test for genetic abnormalities in the stool sample. This would not replace a colonoscopy but could be used as a screening tool for patients who do not want a colonoscopy. We discussed the importance of early detection of colon cancer.4. Discussed current guidelines with respect to breast examination, mammogram and pap smear for early detection of breast and cervical cancer. Patient advised to follow up with these appointments.5. Discussed safe driving and no use of smart phone while driving6. Age-appropriate immunizations were discussed. A tetanus booster is needed every 10 years. Flu vaccine is recommended every year just before the start of the flu season. Shingles vaccine is recommended after age 50 but not all insurances cover it.Pneumonia vaccine is given after age 65 unless there are certain comorbidities for which it is started earlier.7. Diagnostic labs were discussed. These could include CBC CMP and lipids with fasting blood glucose and insulin levels. Vitamin D and hemoglobin A1c testing might be appropriate. Chart, medications, labs, vital signs reviewed. Dictation was accomplished with the use of [employer] voice recognition software, prone to medical misidentifications and grammatical errors. This is unintentional and the practitioner does try to identify and correct these, but some could still be present. Please do not hesitate to contact practitioner for clarification. All quetsions answered to patients satisfaction. Patient verbalized understanding of diagnosis and treatments explained. To call sooner prior to next visit it any questions/concerns arise. 10/10/2024 Dyslipidemia (ICD-10 - E78.5) # JOANN. Re-assess renal function. AVOID NSAIDS #Obesity: Currently on Wegovy 2.4 mg subcu weekly. Tolerating well. #Sleep apnea: Semi- compliant with CPAP. # HTN: Resume antihypertensive # Vaccines: Tdap give today # Screenings: UTD # PHQ-9: 3 Physical WomenPatient seen and examined. Comprehensive discussion was done on the following .1. Nutrition: It is important to follow a healthy diet based on lots of vegetables and legumes and good fat. Avoid processed food and processed carbohydrates. Learn to prepare your own meals. Learn to read labels and avoid high fructose corn syrup, processed chemicals added to increase shelf life and preprepared meals. Avoid fast foods. Learn to eat slowly and plan meals for a week. Try to count calories and be mindful off daily calorie intake. Get into the habit of keeping an eye on your weight by using an appropriate scale. Learn to log exercise and discussed fitness Apps like [employer] which can help keep log off calories taken versus calories burned. Local food should be preferred. Discussed Dirty Dozen Versus Clean Fifteen. Discussed healthy supplements like fish oil, Tumeric, Curcumin, Melatonin, Resveratrol, Probiotics, Vitamin-D, Alpha-Lipoic acid, Vitamin-D and coconut oil.2. It is important to exercise regularly. Is a good habit to walk at least 30-45 minutes a day. Gentle weightlifting with standard precautions to protect the back. Finding activity like cycling or hiking and get into the habit of engaging in it. Stretching before and after the exercises important. It is also important to contact me if there are any problems like shortness of breath, chest pain, back pain and joint or muscle pain associated with the exercise.3. Discussed age appropriate screening guidelines. Colonoscopy needs to start at age 50 with stool for occult blood as appropriate. There is a new test that can test for genetic abnormalities in the stool sample. This would not replace a colonoscopy but could be used as a screening tool for patients who do not want a colonoscopy. We discussed the importance of early detection of colon cancer.4. Discussed current guidelines with respect to breast examination, mammogram and pap smear for early detection of breast and cervical cancer. Patient advised to follow up with these appointments.5. Discussed safe driving and no use of smart phone while driving6. Age-appropriate immunizations were discussed. A tetanus booster is needed every 10 years. Flu vaccine is recommended every year just before the start of the flu season. Shingles vaccine is recommended after age 50 but not all insurances cover it.Pneumonia vaccine is given after age 65 unless there are certain comorbidities for which it is started earlier.7. Diagnostic labs were discussed. These could include CBC CMP and lipids with fasting blood glucose and insulin levels. Vitamin D and hemoglobin A1c testing might be appropriate. Chart, medications, labs, vital signs reviewed. Dictation was accomplished with the use of [employer] voice recognition software, prone to medical misidentifications and grammatical errors. This is unintentional and the practitioner does try to identify and correct these, but some could still be present. Please do not hesitate to contact practitioner for clarification. All quetsions answered to patients satisfaction. Patient verbalized understanding of diagnosis and treatments explained. To call sooner prior to next visit it any questions/concerns arise. 07/14/2024 Essential (primary) hypertension (ICD-10 - I10) #Obesity: Patient has had a discussion with her surgeon (Dr. Chen, [facility]) who agrees she needs medical weight loss management and Contrave is a good start. We discussed that the goal of Contrave is to suppress cravings and curb appetite to the point where she is eating a significant amount less calories. Discussed that the calories she will be consuming should be low in carbohydrates and fats. She is also aware that, as her knees permit, she should be walking 8000-10,000 steps per day. Educated on potential side effects of Contrave including nausea and headache. I will see here in 1 month for weight management 01/17/22: BMI 42.6 weight 256. On Contrave, had some difficulty obtaining, required to go through speciality pharmacy. Reports drastic improvement of cravings. Will attempt resubmission for insurance coverage given pt BMI/risk factors. 03/03/22: BMI 42 and weight 256. Continue Contrave. Reports she has been inconsistent with taking it. States it does help her cravings. She has not been as active. Given holidays, reports she has made poor food choices. Encouraged continued exercise. Pulled back, will given Flexeril. may need prednisone if doesn't improve. 05/26/22: BMI 43 weight 261. Contrave not suppressing appetite or cravings. Has been going to gym. Will submit for Wegovy. Discussed s/e and administration as well as protein intake. Recommend seca scale at next visit. 06/29/22: BMI 44, weight 266. Wegovy given today first dose. See above. 08/10/22: Weight 262.9lbs BMI 43.74 Patient lost 3 pounds currently on Wegovy 0.25mg subq weekly on her second box first week would like to finish out box and then increase dose will increase to 0.5mg subq/weekly 12/07/22: BMI 44, Weight 266. Wegovy denied for PA, due to nto losing enough. Encouraged exercise, eating appropriately, and start Wellbutrin 02/12: BMI 44, Weight 266. Will trial Zepbound 03/26/23: Zepbound denied. Paper Rx given for Wegovy 0.25 mg subcu weekly., then for 0.5 mg. 05/21/23: BMI 43, Weight 275 lbs. Unable to find Wegovy. Given Ozempic sample, to transition to Wegovy. Pt unable to afford compounded. Needs to increase protein intake. 07/17/23: BMI 45, Weight 271. Will increase Wegovy 1.7 mg subcu weekly. Need to add protein and more exercise. Reports she felt like Ozempic worked better. She states she is due for her CPE. Denies constipation. Reports mild GERD. Lays down frequently after eating. 10/17/2023: BMI 42.8, weight 257lbs. Patient congratulated on progress. Taking Wegovy 2.4 mg subcutaneously weekly in addition to Wellbutrin 150 mg daily with adequate appetite suppression and craving control. Denies known side effects. SECA reviewed, reveals fat loss with maintained skeletal muscles. Patient is encouraged to maintain lifestyle changes including making healthy diet choices and cooperating regular physical activity into her routine. 12/31/23: BMI 41, Weight 248 lbs. Continue Wegovy 2.4 mg subcu weekly. Congratulated on efforts. Re-encouraged 100 gm of protein and resistance trianing. 02/14/24: BMI 40, Weifht 245 lb. Will attempt tochange to Zepound 7.5 mg subcu weekly, as she has kind of become stagnant despite adequate exercise onf Wegovy 2.4 mg. Will subtmit PA. Pt aware that there is no lateral dosing between the two medicaiton. Educated on MOA, side effects and storage. 04/01/24: BMI 40, Weight 243. Zepbound was too expensive. Resume Wegovy 2.4 mg subcu weekly, increase wellbutrin to 300 mg po daily. Intentional exercise, and increase protein intake. 05/19/24: BMI 39, Weight 235. Continue Wegovy 2.4 mg subcu weekly. Continue adequate protein intake. 07/14/24: BMI 38, Weight 231. Wegovy 2.4 mg subcu weekly. # R knee pain. Saw [facility], had steroid injection with improvement of sx. Known severe OA, will knee total joint replacement #Sleep apnea: Inconsistency wearing CPAP. Wears it more often when she notices more snoring. Educated that she should try her best to be more consistent, as untreated sleep apnea is a common cause of poorly controlled hypertension and other adverse health outcomes. # HTN> Resume antihypertensive Total time spent with pt was 30 minutes, with over half being face to face counselling. Medication being prescribed under obesity medicine certified Dr. Fab AMBRIZ Case discussed with collaborating physician Minnie Salguero who reviewed the assessment and plan. Chart, medications, labs, vital signs reviewed. Dictation was accomplished with the use of [employer] voice recognition software, prone to medical misidentifications and grammatical errors. This is unintentional and the practitioner does try to identify and correct these, but some could still be present. Please do not hesitate to contact practitioner for clarification. All questions answered to patients satisfaction. Patient verbalized understanding of diagnosis and treatments explained. To call sooner prior to next visit it any questions/concerns arise. 04/24/2024 Dyslipidemia (ICD-10 - E78.5) # R knee pain. Dinoy obtain 3-4 view R knee x-ray, as well as US of the RLE for r/o of Bakers Cyst. Refer to [facility] for eval #Obesity: Continue Wegovy 2.4 mg subcu weekly, increase wellbutrin to 300 mg po daily. Intentional exercise, and increase protein intake. #Sleep apnea: Inconsistency wearing CPAP. Wears it more often when she notices more snoring. Educated that she should try her best to be more consistent, as untreated sleep apnea is a common cause of poorly controlled hypertension and other adverse health outcomes. # HTN> Resume antihypertensive Total time spent with pt was 30 minutes, with over half being face to face counselling. Medication being prescribed under obesity medicine certified Dr. Fab AMBRZI Case discussed with collaborating physician Minnie Salguero who reviewed the assessment and plan. Chart, medications, labs, vital signs reviewed. Dictation was accomplished with the use of [employer] voice recognition software, prone to medical misidentifications and grammatical errors. This is unintentional and the practitioner does try to identify and correct these, but some could still be present. Please do not hesitate to contact practitioner for clarification. All questions answered to patients satisfaction. Patient verbalized understanding of diagnosis and treatments explained. To call sooner prior to next visit it any questions/concerns arise. 05/19/2024 Essential (primary) hypertension (ICD-10 - I10) #Obesity: Patient has had a discussion with her surgeon (Dr. Chen, [facility]) who agrees she needs medical weight loss management and Contrave is a good start. We discussed that the goal of Contrave is to suppress cravings and curb appetite to the point where she is eating a significant amount less calories. Discussed that the calories she will be consuming should be low in carbohydrates and fats. She is also aware that, as her knees permit, she should be walking 8000-10,000 steps per day. Educated on potential side effects of Contrave including nausea and headache. I will see here in 1 month for weight management 01/17/22: BMI 42.6 weight 256. On Contrave, had some difficulty obtaining, required to go through speciality pharmacy. Reports drastic improvement of cravings. Will attempt resubmission for insurance coverage given pt BMI/risk factors. 03/03/22: BMI 42 and weight 256. Continue Contrave. Reports she has been inconsistent with taking it. States it does help her cravings. She has not been as active. Given holidays, reports she has made poor food choices. Encouraged continued exercise. Pulled back, will given Flexeril. may need prednisone if doesn't improve. 05/26/22: BMI 43 weight 261. Contrave not suppressing appetite or cravings. Has been going to gym. Will submit for Wegovy. Discussed s/e and administration as well as protein intake. Recommend seca scale at next visit. 06/29/22: BMI 44, weight 266. Wegovy given today first dose. See above. 08/10/22: Weight 262.9lbs BMI 43.74 Patient lost 3 pounds currently on Wegovy 0.25mg subq weekly on her second box first week would like to finish out box and then increase dose will increase to 0.5mg subq/weekly 12/07/22: BMI 44, Weight 266. Wegovy denied for PA, due to nto losing enough. Encouraged exercise, eating appropriately, and start Wellbutrin 02/12: BMI 44, Weight 266. Will trial Zepbound 03/26/23: Zepbound denied. Paper Rx given for Wegovy 0.25 mg subcu weekly., then for 0.5 mg. 05/21/23: BMI 43, Weight 275 lbs. Unable to find Wegovy. Given Ozempic sample, to transition to Wegovy. Pt unable to afford compounded. Needs to increase protein intake. 07/17/23: BMI 45, Weight 271. Will increase Wegovy 1.7 mg subcu weekly. Need to add protein and more exercise. Reports she felt like Ozempic worked better. She states she is due for her CPE. Denies constipation. Reports mild GERD. Lays down frequently after eating. 10/17/2023: BMI 42.8, weight 257lbs. Patient congratulated on progress. Taking Wegovy 2.4 mg subcutaneously weekly in addition to Wellbutrin 150 mg daily with adequate appetite suppression and craving control. Denies known side effects. SECA reviewed, reveals fat loss with maintained skeletal muscles. Patient is encouraged to maintain lifestyle changes including making healthy diet choices and cooperating regular physical activity into her routine. 12/31/23: BMI 41, Weight 248 lbs. Continue Wegovy 2.4 mg subcu weekly. Congratulated on efforts. Re-encouraged 100 gm of protein and resistance trianing. 02/14/24: BMI 40, Weifht 245 lb. Will attempt tochange to Zepound 7.5 mg subcu weekly, as she has kind of become stagnant despite adequate exercise onf Wegovy 2.4 mg. Will subtmit PA. Pt aware that there is no lateral dosing between the two medicaiton. Educated on MOA, side effects and storage. 04/01/24: BMI 40, Weight 243. Zepbound was too expensive. Resume Wegovy 2.4 mg subcu weekly, increase wellbutrin to 300 mg po daily. Intentional exercise, and increase protein intake. 05/19/24: BMI 39, Weight 235. Continue Wegovy 2.4 mg subcu weekly. Continue adequate protein intake. # R knee pain. Saw [facility], had steroid injection with improvement of sx. Known severe OA, will knee total joint replacement #Sleep apnea: Inconsistency wearing CPAP. Wears it more often when she notices more snoring. Educated that she should try her best to be more consistent, as untreated sleep apnea is a common cause of poorly controlled hypertension and other adverse health outcomes. # HTN> Resume antihypertensive Total time spent with pt was 30 minutes, with over half being face to face counselling. Medication being prescribed under obesity medicine certified MD, Dr. Fab Salguero Case discussed with collaborating physician Minnie Salguero who reviewed the assessment and plan. Chart, medications, labs, vital signs reviewed. Dictation was accomplished with the use of [employer] voice recognition software, prone to medical misidentifications and grammatical errors. This is unintentional and the practitioner does try to identify and correct these, but some could still be present. Please do not hesitate to contact practitioner for clarification. All questions answered to patients satisfaction. Patient verbalized understanding of diagnosis and treatments explained. To call sooner prior to next visit it any questions/concerns arise. 04/01/2024 Essential (primary) hypertension (ICD-10 - I10) #Obesity: Patient has had a discussion with her surgeon (Dr. Chen, [facility]) who agrees she needs medical weight loss management and Contrave is a good start. We discussed that the goal of Contrave is to suppress cravings and curb appetite to the point where she is eating a significant amount less calories. Discussed that the calories she will be consuming should be low in carbohydrates and fats. She is also aware that, as her knees permit, she should be walking 8000-10,000 steps per day. Educated on potential side effects of Contrave including nausea and headache. I will see here in 1 month for weight management 01/17/22: BMI 42.6 weight 256. On Contrave, had some difficulty obtaining, required to go through speciality pharmacy. Reports drastic improvement of cravings. Will attempt resubmission for insurance coverage given pt BMI/risk factors. 03/03/22: BMI 42 and weight 256. Continue Contrave. Reports she has been inconsistent with taking it. States it does help her cravings. She has not been as active. Given holidays, reports she has made poor food choices. Encouraged continued exercise. Pulled back, will given Flexeril. may need prednisone if doesn't improve. 05/26/22: BMI 43 weight 261. Contrave not suppressing appetite or cravings. Has been going to gym. Will submit for Wegovy. Discussed s/e and administration as well as protein intake. Recommend seca scale at next visit. 06/29/22: BMI 44, weight 266. Wegovy given today first dose. See above. 08/10/22: Weight 262.9lbs BMI 43.74 Patient lost 3 pounds currently on Wegovy 0.25mg subq weekly on her second box first week would like to finish out box and then increase dose will increase to 0.5mg subq/weekly 12/07/22: BMI 44, Weight 266. Wegovy denied for PA, due to nto losing enough. Encouraged exercise, eating appropriately, and start Wellbutrin 02/12: BMI 44, Weight 266. Will trial Zepbound 03/26/23: Zepbound denied. Paper Rx given for Wegovy 0.25 mg subcu weekly., then for 0.5 mg. 05/21/23: BMI 43, Weight 275 lbs. Unable to find Wegovy. Given Ozempic sample, to transition to Wegovy. Pt unable to afford compounded. Needs to increase protein intake. 07/17/23: BMI 45, Weight 271. Will increase Wegovy 1.7 mg subcu weekly. Need to add protein and more exercise. Reports she felt like Ozempic worked better. She states she is due for her CPE. Denies constipation. Reports mild GERD. Lays down frequently after eating. 10/17/2023: BMI 42.8, weight 257lbs. Patient congratulated on progress. Taking Wegovy 2.4 mg subcutaneously weekly in addition to Wellbutrin 150 mg daily with adequate appetite suppression and craving control. Denies known side effects. SECA reviewed, reveals fat loss with maintained skeletal muscles. Patient is encouraged to maintain lifestyle changes including making healthy diet choices and cooperating regular physical activity into her routine. 12/31/23: BMI 41, Weight 248 lbs. Continue Wegovy 2.4 mg subcu weekly. Congratulated on efforts. Re-encouraged 100 gm of protein and resistance trianing. 02/14/24: BMI 40, Weifht 245 lb. Will attempt tochange to Zepound 7.5 mg subcu weekly, as she has kind of become stagnant despite adequate exercise onf Wegovy 2.4 mg. Will subtmit PA. Pt aware that there is no lateral dosing between the two medicaiton. Educated on MOA, side effects and storage. 04/01/24: BMI 40, Weight 243. Zepbound was too expensive. Resume Wegovy 2.4 mg subcu weekly, increase wellbutrin to 300 mg po daily. Intentional exercise, and increase protein intake. #Sleep apnea: Inconsistency wearing CPAP. Wears it more often when she notices more snoring. Educated that she should try her best to be more consistent, as untreated sleep apnea is a common cause of poorly controlled hypertension and other adverse health outcomes. # HTN> Resume antihypertensive Total time spent with pt was 30 minutes, with over half being face to face counselling. Medication being prescribed under obesity medicine certified MD, Dr. Fab Salguero Case discussed with collaborating physician Minnie Salguero who reviewed the assessment and plan. Chart, medications, labs, vital signs reviewed. Dictation was accomplished with the use of [employer] voice recognition software, prone to medical misidentifications and grammatical errors. This is unintentional and the practitioner does try to identify and correct these, but some could still be present. Please do not hesitate to contact practitioner for clarification. All questions answered to patients satisfaction. Patient verbalized understanding of diagnosis and treatments explained. To call sooner prior to next visit it any questions/concerns arise. 12/31/2023 Essential (primary) hypertension (ICD-10 - I10) #Obesity: Patient has had a discussion with her surgeon (Dr. Chen, [facility]) who agrees she needs medical weight loss management and Contrave is a good start. We discussed that the goal of Contrave is to suppress cravings and curb appetite to the point where she is eating a significant amount less calories. Discussed that the calories she will be consuming should be low in carbohydrates and fats. She is also aware that, as her knees permit, she should be walking 8000-10,000 steps per day. Educated on potential side effects of Contrave including nausea and headache. I will see here in 1 month for weight management 01/17/22: BMI 42.6 weight 256. On Contrave, had some difficulty obtaining, required to go through speciality pharmacy. Reports drastic improvement of cravings. Will attempt resubmission for insurance coverage given pt BMI/risk factors. 03/03/22: BMI 42 and weight 256. Continue Contrave. Reports she has been inconsistent with taking it. States it does help her cravings. She has not been as active. Given holidays, reports she has made poor food choices. Encouraged continued exercise. Pulled back, will given Flexeril. may need prednisone if doesn't improve. 05/26/22: BMI 43 weight 261. Contrave not suppressing appetite or cravings. Has been going to gym. Will submit for Wegovy. Discussed s/e and administration as well as protein intake. Recommend seca scale at next visit. 06/29/22: BMI 44, weight 266. Wegovy given today first dose. See above. 08/10/22: Weight 262.9lbs BMI 43.74 Patient lost 3 pounds currently on Wegovy 0.25mg subq weekly on her second box first week would like to finish out box and then increase dose will increase to 0.5mg subq/weekly 12/07/22: BMI 44, Weight 266. Wegovy denied for PA, due to nto losing enough. Encouraged exercise, eating appropriately, and start Wellbutrin 02/12: BMI 44, Weight 266. Will trial Zepbound 03/26/23: Zepbound denied. Paper Rx given for Wegovy 0.25 mg subcu weekly., then for 0.5 mg. 05/21/23: BMI 43, Weight 275 lbs. Unable to find Wegovy. Given Ozempic sample, to transition to Wegovy. Pt unable to afford compounded. Needs to increase protein intake. 07/17/23: BMI 45, Weight 271. Will increase Wegovy 1.7 mg subcu weekly. Need to add protein and more exercise. Reports she felt like Ozempic worked better. She states she is due for her CPE. Denies constipation. Reports mild GERD. Lays down frequently after eating. 10/17/2023: BMI 42.8, weight 257lbs. Patient congratulated on progress. Taking Wegovy 2.4 mg subcutaneously weekly in addition to Wellbutrin 150 mg daily with adequate appetite suppression and craving control. Denies known side effects. SECA reviewed, reveals fat loss with maintained skeletal muscles. Patient is encouraged to maintain lifestyle changes including making healthy diet choices and cooperating regular physical activity into her routine. 12/31/23: BMI 41, Weight 248 lbs. Continue Wegovy 2.4 mg subcu weekly. Congratulated on efforts. Re-encouraged 100 gm of protein and resistance trianing. #Sleep apnea: Inconsistency wearing CPAP. Wears it more often when she notices more snoring. Educated that she should try her best to be more consistent, as untreated sleep apnea is a common cause of poorly controlled hypertension and other adverse health outcomes. # HTN> Resume antihypertensive Total time spent with pt was 30 minutes, with over half being face to face counselling. Case discussed with collaborating physician Min Salguero who reviewed the assessment and plan. Chart, medications, labs, vital signs reviewed. Dictation was accomplished with the use of [employer] voice recognition software, prone to medical misidentifications and grammatical errors. This is unintentional and the practitioner does try to identify and correct these, but some could still be present. Please do not hesitate to contact practitioner for clarification. All questions answered to patients satisfaction. Patient verbalized understanding of diagnosis and treatments explained. To call sooner prior to next visit it any questions/concerns arise. 02/14/2024 Essential (primary) hypertension (ICD-10 - I10) #Obesity: Patient has had a discussion with her surgeon (Dr. Chen, [facility]) who agrees she needs medical weight loss management and Contrave is a good start. We discussed that the goal of Contrave is to suppress cravings and curb appetite to the point where she is eating a significant amount less calories. Discussed that the calories she will be consuming should be low in carbohydrates and fats. She is also aware that, as her knees permit, she should be walking 8000-10,000 steps per day. Educated on potential side effects of Contrave including nausea and headache. I will see here in 1 month for weight management 01/17/22: BMI 42.6 weight 256. On Contrave, had some difficulty obtaining, required to go through speciality pharmacy. Reports drastic improvement of cravings. Will attempt resubmission for insurance coverage given pt BMI/risk factors. 03/03/22: BMI 42 and weight 256. Continue Contrave. Reports she has been inconsistent with taking it. States it does help her cravings. She has not been as active. Given holidays, reports she has made poor food choices. Encouraged continued exercise. Pulled back, will given Flexeril. may need prednisone if doesn't improve. 05/26/22: BMI 43 weight 261. Contrave not suppressing appetite or cravings. Has been going to gym. Will submit for Wegovy. Discussed s/e and administration as well as protein intake. Recommend seca scale at next visit. 06/29/22: BMI 44, weight 266. Wegovy given today first dose. See above. 08/10/22: Weight 262.9lbs BMI 43.74 Patient lost 3 pounds currently on Wegovy 0.25mg subq weekly on her second box first week would like to finish out box and then increase dose will increase to 0.5mg subq/weekly 12/07/22: BMI 44, Weight 266. Wegovy denied for PA, due to nto losing enough. Encouraged exercise, eating appropriately, and start Wellbutrin 02/12: BMI 44, Weight 266. Will trial Zepbound 03/26/23: Zepbound denied. Paper Rx given for Wegovy 0.25 mg subcu weekly., then for 0.5 mg. 05/21/23: BMI 43, Weight 275 lbs. Unable to find Wegovy. Given Ozempic sample, to transition to Wegovy. Pt unable to afford compounded. Needs to increase protein intake. 07/17/23: BMI 45, Weight 271. Will increase Wegovy 1.7 mg subcu weekly. Need to add protein and more exercise. Reports she felt like Ozempic worked better. She states she is due for her CPE. Denies constipation. Reports mild GERD. Lays down frequently after eating. 10/17/2023: BMI 42.8, weight 257lbs. Patient congratulated on progress. Taking Wegovy 2.4 mg subcutaneously weekly in addition to Wellbutrin 150 mg daily with adequate appetite suppression and craving control. Denies known side effects. SECA reviewed, reveals fat loss with maintained skeletal muscles. Patient is encouraged to maintain lifestyle changes including making healthy diet choices and cooperating regular physical activity into her routine. 12/31/23: BMI 41, Weight 248 lbs. Continue Wegovy 2.4 mg subcu weekly. Congratulated on efforts. Re-encouraged 100 gm of protein and resistance trianing. 02/14/24: BMI 40, Weifht 245 lb. Will attempt tochange to Zepound 7.5 mg subcu weekly, as she has kind of become stagnant despite adequate exercise onf Wegovy 2.4 mg. Will subtmit PA. Pt aware that there is no lateral dosing between the two medicaiton. Educated on MOA, side effects and storage. #Sleep apnea: Inconsistency wearing CPAP. Wears it more often when she notices more snoring. Educated that she should try her best to be more consistent, as untreated sleep apnea is a common cause of poorly controlled hypertension and other adverse health outcomes. # HTN> Resume antihypertensive Total time spent with pt was 30 minutes, with over half being face to face counselling. Case discussed with collaborating physician Minnie Salguero who reviewed the assessment and plan. Chart, medications, labs, vital signs reviewed. Dictation was accomplished with the use of [employer] voice recognition software, prone to medical misidentifications and grammatical errors. This is unintentional and the practitioner does try to identify and correct these, but some could still be present. Please do not hesitate to contact practitioner for clarification. All questions answered to patients satisfaction. Patient verbalized understanding of diagnosis and treatments explained. To call sooner prior to next visit it any questions/concerns arise. 04/24/2024 Essential (primary) hypertension (ICD-10 - I10) # R knee pain. Diony obtain 3-4 view R knee x-ray, as well as US of the RLE for r/o of Bakers Cyst. Refer to [facility] for eval #Obesity: Continue Wegovy 2.4 mg subcu weekly, increase wellbutrin to 300 mg po daily. Intentional exercise, and increase protein intake. #Sleep apnea: Inconsistency wearing CPAP. Wears it more often when she notices more snoring. Educated that she should try her best to be more consistent, as untreated sleep apnea is a common cause of poorly controlled hypertension and other adverse health outcomes. # HTN> Resume antihypertensive Total time spent with pt was 30 minutes, with over half being face to face counselling. Medication being prescribed under obesity medicine certified MD, Dr. Fab Salguero Case discussed with collaborating physician Minnie Salguero who reviewed the assessment and plan. Chart, medications, labs, vital signs reviewed. Dictation was accomplished with the use of [employer] voice recognition software, prone to medical misidentifications and grammatical errors. This is unintentional and the practitioner does try to identify and correct these, but some could still be present. Please do not hesitate to contact practitioner for clarification. All questions answered to patients satisfaction. Patient verbalized understanding of diagnosis and treatments explained. To call sooner prior to next visit it any questions/concerns arise. 05/19/2024 Right knee pain, unspecified chronicity (ICD-10 - M25.561) #Obesity: Patient has had a discussion with her surgeon (Dr. Chen, [facility]) who agrees she needs medical weight loss management and Contrave is a good start. We discussed that the goal of Contrave is to suppress cravings and curb appetite to the point where she is eating a significant amount less calories. Discussed that the calories she will be consuming should be low in carbohydrates and fats. She is also aware that, as her knees permit, she should be walking 8000-10,000 steps per day. Educated on potential side effects of Contrave including nausea and headache. I will see here in 1 month for weight management 01/17/22: BMI 42.6 weight 256. On Contrave, had some difficulty obtaining, required to go through speciality pharmacy. Reports drastic improvement of cravings. Will attempt resubmission for insurance coverage given pt BMI/risk factors. 03/03/22: BMI 42 and weight 256. Continue Contrave. Reports she has been inconsistent with taking it. States it does help her cravings. She has not been as active. Given holidays, reports she has made poor food choices. Encouraged continued exercise. Pulled back, will given Flexeril. may need prednisone if doesn't improve. 05/26/22: BMI 43 weight 261. Contrave not suppressing appetite or cravings. Has been going to gym. Will submit for Wegovy. Discussed s/e and administration as well as protein intake. Recommend seca scale at next visit. 06/29/22: BMI 44, weight 266. Wegovy given today first dose. See above. 08/10/22: Weight 262.9lbs BMI 43.74 Patient lost 3 pounds currently on Wegovy 0.25mg subq weekly on her second box first week would like to finish out box and then increase dose will increase to 0.5mg subq/weekly 12/07/22: BMI 44, Weight 266. Wegovy denied for PA, due to nto losing enough. Encouraged exercise, eating appropriately, and start Wellbutrin 02/12: BMI 44, Weight 266. Will trial Zepbound 03/26/23: Zepbound denied. Paper Rx given for Wegovy 0.25 mg subcu weekly., then for 0.5 mg. 05/21/23: BMI 43, Weight 275 lbs. Unable to find Wegovy. Given Ozempic sample, to transition to Wegovy. Pt unable to afford compounded. Needs to increase protein intake. 07/17/23: BMI 45, Weight 271. Will increase Wegovy 1.7 mg subcu weekly. Need to add protein and more exercise. Reports she felt like Ozempic worked better. She states she is due for her CPE. Denies constipation. Reports mild GERD. Lays down frequently after eating. 10/17/2023: BMI 42.8, weight 257lbs. Patient congratulated on progress. Taking Wegovy 2.4 mg subcutaneously weekly in addition to Wellbutrin 150 mg daily with adequate appetite suppression and craving control. Denies known side effects. SECA reviewed, reveals fat loss with maintained skeletal muscles. Patient is encouraged to maintain lifestyle changes including making healthy diet choices and cooperating regular physical activity into her routine. 12/31/23: BMI 41, Weight 248 lbs. Continue Wegovy 2.4 mg subcu weekly. Congratulated on efforts. Re-encouraged 100 gm of protein and resistance trianing. 02/14/24: BMI 40, Weifht 245 lb. Will attempt tochange to Zepound 7.5 mg subcu weekly, as she has kind of become stagnant despite adequate exercise onf Wegovy 2.4 mg. Will subtmit PA. Pt aware that there is no lateral dosing between the two medicaiton. Educated on MOA, side effects and storage. 04/01/24: BMI 40, Weight 243. Zepbound was too expensive. Resume Wegovy 2.4 mg subcu weekly, increase wellbutrin to 300 mg po daily. Intentional exercise, and increase protein intake. 05/19/24: BMI 39, Weight 235. Continue Wegovy 2.4 mg subcu weekly. Continue adequate protein intake. # R knee pain. Saw [facility], had steroid injection with improvement of sx. Known severe OA, will knee total joint replacement #Sleep apnea: Inconsistency wearing CPAP. Wears it more often when she notices more snoring. Educated that she should try her best to be more consistent, as untreated sleep apnea is a common cause of poorly controlled hypertension and other adverse health outcomes. # HTN> Resume antihypertensive Total time spent with pt was 30 minutes, with over half being face to face counselling. Medication being prescribed under obesity medicine certified MD, Dr. Fab Salguero Case discussed with collaborating physician Minnie Salguero who reviewed the assessment and plan. Chart, medications, labs, vital signs reviewed. Dictation was accomplished with the use of [employer] voice recognition software, prone to medical misidentifications and grammatical errors. This is unintentional and the practitioner does try to identify and correct these, but some could still be present. Please do not hesitate to contact practitioner for clarification. All questions answered to patients satisfaction. Patient verbalized understanding of diagnosis and treatments explained. To call sooner prior to next visit it any questions/concerns arise. 10/10/2024 JOANN (acute kidney injury) (ICD-10 - N17.9) # JOANN. Re-assess renal function. AVOID NSAIDS #Obesity: Currently on Wegovy 2.4 mg subcu weekly. Tolerating well. #Sleep apnea: Semi- compliant with CPAP. # HTN: Resume antihypertensive # Vaccines: Tdap give today # Screenings: UTD # PHQ-9: 3 Physical WomenPatient seen and examined. Comprehensive discussion was done on the following .1. Nutrition: It is important to follow a healthy diet based on lots of vegetables and legumes and good fat. Avoid processed food and processed carbohydrates. Learn to prepare your own meals. Learn to read labels and avoid high fructose corn syrup, processed chemicals added to increase shelf life and preprepared meals. Avoid fast foods. Learn to eat slowly and plan meals for a week. Try to count calories and be mindful off daily calorie intake. Get into the habit of keeping an eye on your weight by using an appropriate scale. Learn to log exercise and discussed fitness Apps like [employer] which can help keep log off calories taken versus calories burned. Local food should be preferred. Discussed Dirty Dozen Versus Clean Fifteen. Discussed healthy supplements like fish oil, Tumeric, Curcumin, Melatonin, Resveratrol, Probiotics, Vitamin-D, Alpha-Lipoic acid, Vitamin-D and coconut oil.2. It is important to exercise regularly. Is a good habit to walk at least 30-45 minutes a day. Gentle weightlifting with standard precautions to protect the back. Finding activity like cycling or hiking and get into the habit of engaging in it. Stretching before and after the exercises important. It is also important to contact me if there are any problems like shortness of breath, chest pain, back pain and joint or muscle pain associated with the exercise.3. Discussed age appropriate screening guidelines. Colonoscopy needs to start at age 50 with stool for occult blood as appropriate. There is a new test that can test for genetic abnormalities in the stool sample. This would not replace a colonoscopy but could be used as a screening tool for patients who do not want a colonoscopy. We discussed the importance of early detection of colon cancer.4. Discussed current guidelines with respect to breast examination, mammogram and pap smear for early detection of breast and cervical cancer. Patient advised to follow up with these appointments.5. Discussed safe driving and no use of smart phone while driving6. Age-appropriate immunizations were discussed. A tetanus booster is needed every 10 years. Flu vaccine is recommended every year just before the start of the flu season. Shingles vaccine is recommended after age 50 but not all insurances cover it.Pneumonia vaccine is given after age 65 unless there are certain comorbidities for which it is started earlier.7. Diagnostic labs were discussed. These could include CBC CMP and lipids with fasting blood glucose and insulin levels. Vitamin D and hemoglobin A1c testing might be appropriate. Chart, medications, labs, vital signs reviewed. Dictation was accomplished with the use of [employer] voice recognition software, prone to medical misidentifications and grammatical errors. This is unintentional and the practitioner does try to identify and correct these, but some could still be present. Please do not hesitate to contact practitioner for clarification. All quetsions answered to patients satisfaction. Patient verbalized understanding of diagnosis and treatments explained. To call sooner prior to next visit it any questions/concerns arise. 10/10/2024 Depression screen (ICD-10 - Z13.31) # JOANN. Re-assess renal function. AVOID NSAIDS #Obesity: Currently on Wegovy 2.4 mg subcu weekly. Tolerating well. #Sleep apnea: Semi- compliant with CPAP. # HTN: Resume antihypertensive # Vaccines: Tdap give today # Screenings: UTD # PHQ-9: 3 Physical WomenPatient seen and examined. Comprehensive discussion was done on the following .1. Nutrition: It is important to follow a healthy diet based on lots of vegetables and legumes and good fat. Avoid processed food and processed carbohydrates. Learn to prepare your own meals. Learn to read labels and avoid high fructose corn syrup, processed chemicals added to increase shelf life and preprepared meals. Avoid fast foods. Learn to eat slowly and plan meals for a week. Try to count calories and be mindful off daily calorie intake. Get into the habit of keeping an eye on your weight by using an appropriate scale. Learn to log exercise and discussed fitness Apps like [employer] which can help keep log off calories taken versus calories burned. Local food should be preferred. Discussed Dirty Dozen Versus Clean Fifteen. Discussed healthy supplements like fish oil, Tumeric, Curcumin, Melatonin, Resveratrol, Probiotics, Vitamin-D, Alpha-Lipoic acid, Vitamin-D and coconut oil.2. It is important to exercise regularly. Is a good habit to walk at least 30-45 minutes a day. Gentle weightlifting with standard precautions to protect the back. Finding activity like cycling or hiking and get into the habit of engaging in it. Stretching before and after the exercises important. It is also important to contact me if there are any problems like shortness of breath, chest pain, back pain and joint or muscle pain associated with the exercise.3. Discussed age appropriate screening guidelines. Colonoscopy needs to start at age 50 with stool for occult blood as appropriate. There is a new test that can test for genetic abnormalities in the stool sample. This would not replace a colonoscopy but could be used as a screening tool for patients who do not want a colonoscopy. We discussed the importance of early detection of colon cancer.4. Discussed current guidelines with respect to breast examination, mammogram and pap smear for early detection of breast and cervical cancer. Patient advised to follow up with these appointments.5. Discussed safe driving and no use of smart phone while driving6. Age-appropriate immunizations were discussed. A tetanus booster is needed every 10 years. Flu vaccine is recommended every year just before the start of the flu season. Shingles vaccine is recommended after age 50 but not all insurances cover it.Pneumonia vaccine is given after age 65 unless there are certain comorbidities for which it is started earlier.7. Diagnostic labs were discussed. These could include CBC CMP and lipids with fasting blood glucose and insulin levels. Vitamin D and hemoglobin A1c testing might be appropriate. Chart, medications, labs, vital signs reviewed. Dictation was accomplished with the use of [employer] voice recognition software, prone to medical misidentifications and grammatical errors. This is unintentional and the practitioner does try to identify and correct these, but some could still be present. Please do not hesitate to contact practitioner for clarification. All quetsions answered to patients satisfaction. Patient verbalized understanding of diagnosis and treatments explained. To call sooner prior to next visit it any questions/concerns arise. 07/14/2024 Annual physical exam (ICD-10 - Z00.00) #Obesity: Patient has had a discussion with her surgeon (Dr. Chen, [facility]) who agrees she needs medical weight loss management and Contrave is a good start. We discussed that the goal of Contrave is to suppress cravings and curb appetite to the point where she is eating a significant amount less calories. Discussed that the calories she will be consuming should be low in carbohydrates and fats. She is also aware that, as her knees permit, she should be walking 8000-10,000 steps per day. Educated on potential side effects of Contrave including nausea and headache. I will see here in 1 month for weight management 01/17/22: BMI 42.6 weight 256. On Contrave, had some difficulty obtaining, required to go through speciality pharmacy. Reports drastic improvement of cravings. Will attempt resubmission for insurance coverage given pt BMI/risk factors. 03/03/22: BMI 42 and weight 256. Continue Contrave. Reports she has been inconsistent with taking it. States it does help her cravings. She has not been as active. Given holidays, reports she has made poor food choices. Encouraged continued exercise. Pulled back, will given Flexeril. may need prednisone if doesn't improve. 05/26/22: BMI 43 weight 261. Contrave not suppressing appetite or cravings. Has been going to gym. Will submit for Wegovy. Discussed s/e and administration as well as protein intake. Recommend seca scale at next visit. 06/29/22: BMI 44, weight 266. Wegovy given today first dose. See above. 08/10/22: Weight 262.9lbs BMI 43.74 Patient lost 3 pounds currently on Wegovy 0.25mg subq weekly on her second box first week would like to finish out box and then increase dose will increase to 0.5mg subq/weekly 12/07/22: BMI 44, Weight 266. Wegovy denied for PA, due to nto losing enough. Encouraged exercise, eating appropriately, and start Wellbutrin 02/12: BMI 44, Weight 266. Will trial Zepbound 03/26/23: Zepbound denied. Paper Rx given for Wegovy 0.25 mg subcu weekly., then for 0.5 mg. 05/21/23: BMI 43, Weight 275 lbs. Unable to find Wegovy. Given Ozempic sample, to transition to Wegovy. Pt unable to afford compounded. Needs to increase protein intake. 07/17/23: BMI 45, Weight 271. Will increase Wegovy 1.7 mg subcu weekly. Need to add protein and more exercise. Reports she felt like Ozempic worked better. She states she is due for her CPE. Denies constipation. Reports mild GERD. Lays down frequently after eating. 10/17/2023: BMI 42.8, weight 257lbs. Patient congratulated on progress. Taking Wegovy 2.4 mg subcutaneously weekly in addition to Wellbutrin 150 mg daily with adequate appetite suppression and craving control. Denies known side effects. SECA reviewed, reveals fat loss with maintained skeletal muscles. Patient is encouraged to maintain lifestyle changes including making healthy diet choices and cooperating regular physical activity into her routine. 12/31/23: BMI 41, Weight 248 lbs. Continue Wegovy 2.4 mg subcu weekly. Congratulated on efforts. Re-encouraged 100 gm of protein and resistance trianing. 02/14/24: BMI 40, Weifht 245 lb. Will attempt tochange to Zepound 7.5 mg subcu weekly, as she has kind of become stagnant despite adequate exercise onf Wegovy 2.4 mg. Will subtmit PA. Pt aware that there is no lateral dosing between the two medicaiton. Educated on MOA, side effects and storage. 04/01/24: BMI 40, Weight 243. Zepbound was too expensive. Resume Wegovy 2.4 mg subcu weekly, increase wellbutrin to 300 mg po daily. Intentional exercise, and increase protein intake. 05/19/24: BMI 39, Weight 235. Continue Wegovy 2.4 mg subcu weekly. Continue adequate protein intake. 07/14/24: BMI 38, Weight 231. Wegovy 2.4 mg subcu weekly. # R knee pain. Saw [facility], had steroid injection with improvement of sx. Known severe OA, will knee total joint replacement #Sleep apnea: Inconsistency wearing CPAP. Wears it more often when she notices more snoring. Educated that she should try her best to be more consistent, as untreated sleep apnea is a common cause of poorly controlled hypertension and other adverse health outcomes. # HTN> Resume antihypertensive Total time spent with pt was 30 minutes, with over half being face to face counselling. Medication being prescribed under obesity medicine certified MD, Dr. Fab Salguero Case discussed with collaborating physician Minnie Salguero who reviewed the assessment and plan. Chart, medications, labs, vital signs reviewed. Dictation was accomplished with the use of [employer] voice recognition software, prone to medical misidentifications and grammatical errors. This is unintentional and the practitioner does try to identify and correct these, but some could still be present. Please do not hesitate to contact practitioner for clarification. All questions answered to patients satisfaction. Patient verbalized understanding of diagnosis and treatments explained. To call sooner prior to next visit it any questions/concerns arise. 10/10/2024 Essential (primary) hypertension (ICD-10 - I10) # JOANN. Re-assess renal function. AVOID NSAIDS #Obesity: Currently on Wegovy 2.4 mg subcu weekly. Tolerating well. #Sleep apnea: Semi- compliant with CPAP. # HTN: Resume antihypertensive # Vaccines: Tdap give today # Screenings: UTD # PHQ-9: 3 Physical WomenPatient seen and examined. Comprehensive discussion was done on the following .1. Nutrition: It is important to follow a healthy diet based on lots of vegetables and legumes and good fat. Avoid processed food and processed carbohydrates. Learn to prepare your own meals. Learn to read labels and avoid high fructose corn syrup, processed chemicals added to increase shelf life and preprepared meals. Avoid fast foods. Learn to eat slowly and plan meals for a week. Try to count calories and be mindful off daily calorie intake. Get into the habit of keeping an eye on your weight by using an appropriate scale. Learn to log exercise and discussed fitness Apps like [employer] which can help keep log off calories taken versus calories burned. Local food should be preferred. Discussed Dirty Dozen Versus Clean Fifteen. Discussed healthy supplements like fish oil, Tumeric, Curcumin, Melatonin, Resveratrol, Probiotics, Vitamin-D, Alpha-Lipoic acid, Vitamin-D and coconut oil.2. It is important to exercise regularly. Is a good habit to walk at least 30-45 minutes a day. Gentle weightlifting with standard precautions to protect the back. Finding activity like cycling or hiking and get into the habit of engaging in it. Stretching before and after the exercises important. It is also important to contact me if there are any problems like shortness of breath, chest pain, back pain and joint or muscle pain associated with the exercise.3. Discussed age appropriate screening guidelines. Colonoscopy needs to start at age 50 with stool for occult blood as appropriate. There is a new test that can test for genetic abnormalities in the stool sample. This would not replace a colonoscopy but could be used as a screening tool for patients who do not want a colonoscopy. We discussed the importance of early detection of colon cancer.4. Discussed current guidelines with respect to breast examination, mammogram and pap smear for early detection of breast and cervical cancer. Patient advised to follow up with these appointments.5. Discussed safe driving and no use of smart phone while driving6. Age-appropriate immunizations were discussed. A tetanus booster is needed every 10 years. Flu vaccine is recommended every year just before the start of the flu season. Shingles vaccine is recommended after age 50 but not all insurances cover it.Pneumonia vaccine is given after age 65 unless there are certain comorbidities for which it is started earlier.7. Diagnostic labs were discussed. These could include CBC CMP and lipids with fasting blood glucose and insulin levels. Vitamin D and hemoglobin A1c testing might be appropriate. Chart, medications, labs, vital signs reviewed. Dictation was accomplished with the use of [employer] voice recognition software, prone to medical misidentifications and grammatical errors. This is unintentional and the practitioner does try to identify and correct these, but some could still be present. Please do not hesitate to contact practitioner for clarification. All quetsions answered to patients satisfaction. Patient verbalized understanding of diagnosis and treatments explained. To call sooner prior to next visit it any questions/concerns arise. 07/14/2024 Encounter for screening for diabetes mellitus (ICD-10 - Z13.1) #Obesity: Patient has had a discussion with her surgeon (Dr. Chen, [facility]) who agrees she needs medical weight loss management and Contrave is a good start. We discussed that the goal of Contrave is to suppress cravings and curb appetite to the point where she is eating a significant amount less calories. Discussed that the calories she will be consuming should be low in carbohydrates and fats. She is also aware that, as her knees permit, she should be walking 8000-10,000 steps per day. Educated on potential side effects of Contrave including nausea and headache. I will see here in 1 month for weight management 01/17/22: BMI 42.6 weight 256. On Contrave, had some difficulty obtaining, required to go through speciality pharmacy. Reports drastic improvement of cravings. Will attempt resubmission for insurance coverage given pt BMI/risk factors. 03/03/22: BMI 42 and weight 256. Continue Contrave. Reports she has been inconsistent with taking it. States it does help her cravings. She has not been as active. Given holidays, reports she has made poor food choices. Encouraged continued exercise. Pulled back, will given Flexeril. may need prednisone if doesn't improve. 05/26/22: BMI 43 weight 261. Contrave not suppressing appetite or cravings. Has been going to gym. Will submit for Wegovy. Discussed s/e and administration as well as protein intake. Recommend seca scale at next visit. 06/29/22: BMI 44, weight 266. Wegovy given today first dose. See above. 08/10/22: Weight 262.9lbs BMI 43.74 Patient lost 3 pounds currently on Wegovy 0.25mg subq weekly on her second box first week would like to finish out box and then increase dose will increase to 0.5mg subq/weekly 12/07/22: BMI 44, Weight 266. Wegovy denied for PA, due to nto losing enough. Encouraged exercise, eating appropriately, and start Wellbutrin 02/12: BMI 44, Weight 266. Will trial Zepbound 03/26/23: Zepbound denied. Paper Rx given for Wegovy 0.25 mg subcu weekly., then for 0.5 mg. 05/21/23: BMI 43, Weight 275 lbs. Unable to find Wegovy. Given Ozempic sample, to transition to Wegovy. Pt unable to afford compounded. Needs to increase protein intake. 07/17/23: BMI 45, Weight 271. Will increase Wegovy 1.7 mg subcu weekly. Need to add protein and more exercise. Reports she felt like Ozempic worked better. She states she is due for her CPE. Denies constipation. Reports mild GERD. Lays down frequently after eating. 10/17/2023: BMI 42.8, weight 257lbs. Patient congratulated on progress. Taking Wegovy 2.4 mg subcutaneously weekly in addition to Wellbutrin 150 mg daily with adequate appetite suppression and craving control. Denies known side effects. SECA reviewed, reveals fat loss with maintained skeletal muscles. Patient is encouraged to maintain lifestyle changes including making healthy diet choices and cooperating regular physical activity into her routine. 12/31/23: BMI 41, Weight 248 lbs. Continue Wegovy 2.4 mg subcu weekly. Congratulated on efforts. Re-encouraged 100 gm of protein and resistance trianing. 02/14/24: BMI 40, Weifht 245 lb. Will attempt tochange to Zepound 7.5 mg subcu weekly, as she has kind of become stagnant despite adequate exercise onf Wegovy 2.4 mg. Will subtmit PA. Pt aware that there is no lateral dosing between the two medicaiton. Educated on MOA, side effects and storage. 04/01/24: BMI 40, Weight 243. Zepbound was too expensive. Resume Wegovy 2.4 mg subcu weekly, increase wellbutrin to 300 mg po daily. Intentional exercise, and increase protein intake. 05/19/24: BMI 39, Weight 235. Continue Wegovy 2.4 mg subcu weekly. Continue adequate protein intake. 07/14/24: BMI 38, Weight 231. Wegovy 2.4 mg subcu weekly. # R knee pain. Saw [facility], had steroid injection with improvement of sx. Known severe OA, will knee total joint replacement #Sleep apnea: Inconsistency wearing CPAP. Wears it more often when she notices more snoring. Educated that she should try her best to be more consistent, as untreated sleep apnea is a common cause of poorly controlled hypertension and other adverse health outcomes. # HTN> Resume antihypertensive Total time spent with pt was 30 minutes, with over half being face to face counselling. Medication being prescribed under obesity medicine certified MD, Dr. Fab Salguero Case discussed with collaborating physician Minnie Salguero who reviewed the assessment and plan. Chart, medications, labs, vital signs reviewed. Dictation was accomplished with the use of [employer] voice recognition software, prone to medical misidentifications and grammatical errors. This is unintentional and the practitioner does try to identify and correct these, but some could still be present. Please do not hesitate to contact practitioner for clarification. All questions answered to patients satisfaction. Patient verbalized understanding of diagnosis and treatments explained. To call sooner prior to next visit it any questions/concerns arise. 07/14/2024 Vitamin D deficiency, unspecified (ICD-10 - E55.9) #Obesity: Patient has had a discussion with her surgeon (Dr. Chen, [facility]) who agrees she needs medical weight loss management and Contrave is a good start. We discussed that the goal of Contrave is to suppress cravings and curb appetite to the point where she is eating a significant amount less calories. Discussed that the calories she will be consuming should be low in carbohydrates and fats. She is also aware that, as her knees permit, she should be walking 8000-10,000 steps per day. Educated on potential side effects of Contrave including nausea and headache. I will see here in 1 month for weight management 01/17/22: BMI 42.6 weight 256. On Contrave, had some difficulty obtaining, required to go through speciality pharmacy. Reports drastic improvement of cravings. Will attempt resubmission for insurance coverage given pt BMI/risk factors. 03/03/22: BMI 42 and weight 256. Continue Contrave. Reports she has been inconsistent with taking it. States it does help her cravings. She has not been as active. Given holidays, reports she has made poor food choices. Encouraged continued exercise. Pulled back, will given Flexeril. may need prednisone if doesn't improve. 05/26/22: BMI 43 weight 261. Contrave not suppressing appetite or cravings. Has been going to gym. Will submit for Wegovy. Discussed s/e and administration as well as protein intake. Recommend seca scale at next visit. 06/29/22: BMI 44, weight 266. Wegovy given today first dose. See above. 08/10/22: Weight 262.9lbs BMI 43.74 Patient lost 3 pounds currently on Wegovy 0.25mg subq weekly on her second box first week would like to finish out box and then increase dose will increase to 0.5mg subq/weekly 12/07/22: BMI 44, Weight 266. Wegovy denied for PA, due to nto losing enough. Encouraged exercise, eating appropriately, and start Wellbutrin 02/12: BMI 44, Weight 266. Will trial Zepbound 03/26/23: Zepbound denied. Paper Rx given for Wegovy 0.25 mg subcu weekly., then for 0.5 mg. 05/21/23: BMI 43, Weight 275 lbs. Unable to find Wegovy. Given Ozempic sample, to transition to Wegovy. Pt unable to afford compounded. Needs to increase protein intake. 07/17/23: BMI 45, Weight 271. Will increase Wegovy 1.7 mg subcu weekly. Need to add protein and more exercise. Reports she felt like Ozempic worked better. She states she is due for her CPE. Denies constipation. Reports mild GERD. Lays down frequently after eating. 10/17/2023: BMI 42.8, weight 257lbs. Patient congratulated on progress. Taking Wegovy 2.4 mg subcutaneously weekly in addition to Wellbutrin 150 mg daily with adequate appetite suppression and craving control. Denies known side effects. SECA reviewed, reveals fat loss with maintained skeletal muscles. Patient is encouraged to maintain lifestyle changes including making healthy diet choices and cooperating regular physical activity into her routine. 12/31/23: BMI 41, Weight 248 lbs. Continue Wegovy 2.4 mg subcu weekly. Congratulated on efforts. Re-encouraged 100 gm of protein and resistance trianing. 02/14/24: BMI 40, Weifht 245 lb. Will attempt tochange to Zepound 7.5 mg subcu weekly, as she has kind of become stagnant despite adequate exercise onf Wegovy 2.4 mg. Will subtmit PA. Pt aware that there is no lateral dosing between the two medicaiton. Educated on MOA, side effects and storage. 04/01/24: BMI 40, Weight 243. Zepbound was too expensive. Resume Wegovy 2.4 mg subcu weekly, increase wellbutrin to 300 mg po daily. Intentional exercise, and increase protein intake. 05/19/24: BMI 39, Weight 235. Continue Wegovy 2.4 mg subcu weekly. Continue adequate protein intake. 07/14/24: BMI 38, Weight 231. Wegovy 2.4 mg subcu weekly. # R knee pain. Saw [facility], had steroid injection with improvement of sx. Known severe OA, will knee total joint replacement #Sleep apnea: Inconsistency wearing CPAP. Wears it more often when she notices more snoring. Educated that she should try her best to be more consistent, as untreated sleep apnea is a common cause of poorly controlled hypertension and other adverse health outcomes. # HTN> Resume antihypertensive Total time spent with pt was 30 minutes, with over half being face to face counselling. Medication being prescribed under obesity medicine certified MD, Dr. Fab Salguero Case discussed with collaborating physician Minnie Salguero who reviewed the assessment and plan. Chart, medications, labs, vital signs reviewed. Dictation was accomplished with the use of [employer] voice recognition software, prone to medical misidentifications and grammatical errors. This is unintentional and the practitioner does try to identify and correct these, but some could still be present. Please do not hesitate to contact practitioner for clarification. All questions answered to patients satisfaction. Patient verbalized understanding of diagnosis and treatments explained. To call sooner prior to next visit it any questions/concerns arise. 10/10/2024 Encounter for examination of blood pressure without abnormal findings (ICD-10 - Z01.30) # JOANN. Re-assess renal function. AVOID NSAIDS #Obesity: Currently on Wegovy 2.4 mg subcu weekly. Tolerating well. #Sleep apnea: Semi- compliant with CPAP. # HTN: Resume antihypertensive # Vaccines: Tdap give today # Screenings: UTD # PHQ-9: 3 Physical WomenPatient seen and examined. Comprehensive discussion was done on the following .1. Nutrition: It is important to follow a healthy diet based on lots of vegetables and legumes and good fat. Avoid processed food and processed carbohydrates. Learn to prepare your own meals. Learn to read labels and avoid high fructose corn syrup, processed chemicals added to increase shelf life and preprepared meals. Avoid fast foods. Learn to eat slowly and plan meals for a week. Try to count calories and be mindful off daily calorie intake. Get into the habit of keeping an eye on your weight by using an appropriate scale. Learn to log exercise and discussed fitness Apps like [employer] which can help keep log off calories taken versus calories burned. Local food should be preferred. Discussed Dirty Dozen Versus Clean Fifteen. Discussed healthy supplements like fish oil, Tumeric, Curcumin, Melatonin, Resveratrol, Probiotics, Vitamin-D, Alpha-Lipoic acid, Vitamin-D and coconut oil.2. It is important to exercise regularly. Is a good habit to walk at least 30-45 minutes a day. Gentle weightlifting with standard precautions to protect the back. Finding activity like cycling or hiking and get into the habit of engaging in it. Stretching before and after the exercises important. It is also important to contact me if there are any problems like shortness of breath, chest pain, back pain and joint or muscle pain associated with the exercise.3. Discussed age appropriate screening guidelines. Colonoscopy needs to start at age 50 with stool for occult blood as appropriate. There is a new test that can test for genetic abnormalities in the stool sample. This would not replace a colonoscopy but could be used as a screening tool for patients who do not want a colonoscopy. We discussed the importance of early detection of colon cancer.4. Discussed current guidelines with respect to breast examination, mammogram and pap smear for early detection of breast and cervical cancer. Patient advised to follow up with these appointments.5. Discussed safe driving and no use of smart phone while driving6. Age-appropriate immunizations were discussed. A tetanus booster is needed every 10 years. Flu vaccine is recommended every year just before the start of the flu season. Shingles vaccine is recommended after age 50 but not all insurances cover it.Pneumonia vaccine is given after age 65 unless there are certain comorbidities for which it is started earlier.7. Diagnostic labs were discussed. These could include CBC CMP and lipids with fasting blood glucose and insulin levels. Vitamin D and hemoglobin A1c testing might be appropriate. Chart, medications, labs, vital signs reviewed. Dictation was accomplished with the use of [employer] voice recognition software, prone to medical misidentifications and grammatical errors. This is unintentional and the practitioner does try to identify and correct these, but some could still be present. Please do not hesitate to contact practitioner for clarification. All quetsions answered to patients satisfaction. Patient verbalized understanding of diagnosis and treatments explained. To call sooner prior to next visit it any questions/concerns arise. 10/10/2024 Encounter for immunization (ICD-10 - Z23) # JOANN. Re-assess renal function. AVOID NSAIDS #Obesity: Currently on Wegovy 2.4 mg subcu weekly. Tolerating well. #Sleep apnea: Semi- compliant with CPAP. # HTN: Resume antihypertensive # Vaccines: Tdap give today # Screenings: UTD # PHQ-9: 3 Physical WomenPatient seen and examined. Comprehensive discussion was done on the following .1. Nutrition: It is important to follow a healthy diet based on lots of vegetables and legumes and good fat. Avoid processed food and processed carbohydrates. Learn to prepare your own meals. Learn to read labels and avoid high fructose corn syrup, processed chemicals added to increase shelf life and preprepared meals. Avoid fast foods. Learn to eat slowly and plan meals for a week. Try to count calories and be mindful off daily calorie intake. Get into the habit of keeping an eye on your weight by using an appropriate scale. Learn to log exercise and discussed fitness Apps like [employer] which can help keep log off calories taken versus calories burned. Local food should be preferred. Discussed Dirty Dozen Versus Clean Fifteen. Discussed healthy supplements like fish oil, Tumeric, Curcumin, Melatonin, Resveratrol, Probiotics, Vitamin-D, Alpha-Lipoic acid, Vitamin-D and coconut oil.2. It is important to exercise regularly. Is a good habit to walk at least 30-45 minutes a day. Gentle weightlifting with standard precautions to protect the back. Finding activity like cycling or hiking and get into the habit of engaging in it. Stretching before and after the exercises important. It is also important to contact me if there are any problems like shortness of breath, chest pain, back pain and joint or muscle pain associated with the exercise.3. Discussed age appropriate screening guidelines. Colonoscopy needs to start at age 50 with stool for occult blood as appropriate. There is a new test that can test for genetic abnormalities in the stool sample. This would not replace a colonoscopy but could be used as a screening tool for patients who do not want a colonoscopy. We discussed the importance of early detection of colon cancer.4. Discussed current guidelines with respect to breast examination, mammogram and pap smear for early detection of breast and cervical cancer. Patient advised to follow up with these appointments.5. Discussed safe driving and no use of smart phone while driving6. Age-appropriate immunizations were discussed. A tetanus booster is needed every 10 years. Flu vaccine is recommended every year just before the start of the flu season. Shingles vaccine is recommended after age 50 but not all insurances cover it.Pneumonia vaccine is given after age 65 unless there are certain comorbidities for which it is started earlier.7. Diagnostic labs were discussed. These could include CBC CMP and lipids with fasting blood glucose and insulin levels. Vitamin D and hemoglobin A1c testing might be appropriate. Chart, medications, labs, vital signs reviewed. Dictation was accomplished with the use of [employer] voice recognition software, prone to medical misidentifications and grammatical errors. This is unintentional and the practitioner does try to identify and correct these, but some could still be present. Please do not hesitate to contact practitioner for clarification. All quetsions answered to patients satisfaction. Patient verbalized understanding of diagnosis and treatments explained. To call sooner prior to next visit it any questions/concerns arise. 07/14/2024 Hypothyroidism, unspecified type (ICD-10 - E03.9) #Obesity: Patient has had a discussion with her surgeon (Dr. Chen, [facility]) who agrees she needs medical weight loss management and Contrave is a good start. We discussed that the goal of Contrave is to suppress cravings and curb appetite to the point where she is eating a significant amount less calories. Discussed that the calories she will be consuming should be low in carbohydrates and fats. She is also aware that, as her knees permit, she should be walking 8000-10,000 steps per day. Educated on potential side effects of Contrave including nausea and headache. I will see here in 1 month for weight management 01/17/22: BMI 42.6 weight 256. On Contrave, had some difficulty obtaining, required to go through speciality pharmacy. Reports drastic improvement of cravings. Will attempt resubmission for insurance coverage given pt BMI/risk factors. 03/03/22: BMI 42 and weight 256. Continue Contrave. Reports she has been inconsistent with taking it. States it does help her cravings. She has not been as active. Given holidays, reports she has made poor food choices. Encouraged continued exercise. Pulled back, will given Flexeril. may need prednisone if doesn't improve. 05/26/22: BMI 43 weight 261. Contrave not suppressing appetite or cravings. Has been going to gym. Will submit for Wegovy. Discussed s/e and administration as well as protein intake. Recommend seca scale at next visit. 06/29/22: BMI 44, weight 266. Wegovy given today first dose. See above. 08/10/22: Weight 262.9lbs BMI 43.74 Patient lost 3 pounds currently on Wegovy 0.25mg subq weekly on her second box first week would like to finish out box and then increase dose will increase to 0.5mg subq/weekly 12/07/22: BMI 44, Weight 266. Wegovy denied for PA, due to nto losing enough. Encouraged exercise, eating appropriately, and start Wellbutrin 02/12: BMI 44, Weight 266. Will trial Zepbound 03/26/23: Zepbound denied. Paper Rx given for Wegovy 0.25 mg subcu weekly., then for 0.5 mg. 05/21/23: BMI 43, Weight 275 lbs. Unable to find Wegovy. Given Ozempic sample, to transition to Wegovy. Pt unable to afford compounded. Needs to increase protein intake. 07/17/23: BMI 45, Weight 271. Will increase Wegovy 1.7 mg subcu weekly. Need to add protein and more exercise. Reports she felt like Ozempic worked better. She states she is due for her CPE. Denies constipation. Reports mild GERD. Lays down frequently after eating. 10/17/2023: BMI 42.8, weight 257lbs. Patient congratulated on progress. Taking Wegovy 2.4 mg subcutaneously weekly in addition to Wellbutrin 150 mg daily with adequate appetite suppression and craving control. Denies known side effects. SECA reviewed, reveals fat loss with maintained skeletal muscles. Patient is encouraged to maintain lifestyle changes including making healthy diet choices and cooperating regular physical activity into her routine. 12/31/23: BMI 41, Weight 248 lbs. Continue Wegovy 2.4 mg subcu weekly. Congratulated on efforts. Re-encouraged 100 gm of protein and resistance trianing. 02/14/24: BMI 40, Weifht 245 lb. Will attempt tochange to Zepound 7.5 mg subcu weekly, as she has kind of become stagnant despite adequate exercise onf Wegovy 2.4 mg. Will subtmit PA. Pt aware that there is no lateral dosing between the two medicaiton. Educated on MOA, side effects and storage. 04/01/24: BMI 40, Weight 243. Zepbound was too expensive. Resume Wegovy 2.4 mg subcu weekly, increase wellbutrin to 300 mg po daily. Intentional exercise, and increase protein intake. 05/19/24: BMI 39, Weight 235. Continue Wegovy 2.4 mg subcu weekly. Continue adequate protein intake. 07/14/24: BMI 38, Weight 231. Wegovy 2.4 mg subcu weekly. # R knee pain. Saw [facility], had steroid injection with improvement of sx. Known severe OA, will knee total joint replacement #Sleep apnea: Inconsistency wearing CPAP. Wears it more often when she notices more snoring. Educated that she should try her best to be more consistent, as untreated sleep apnea is a common cause of poorly controlled hypertension and other adverse health outcomes. # HTN> Resume antihypertensive Total time spent with pt was 30 minutes, with over half being face to face counselling. Medication being prescribed under obesity medicine certified MD, Dr. Fab Salguero Case discussed with collaborating physician Minnie Salguero who reviewed the assessment and plan. Chart, medications, labs, vital signs reviewed. Dictation was accomplished with the use of [employer] voice recognition software, prone to medical misidentifications and grammatical errors. This is unintentional and the practitioner does try to identify and correct these, but some could still be present. Please do not hesitate to contact practitioner for clarification. All questions answered to patients satisfaction. Patient verbalized understanding of diagnosis and treatments explained. To call sooner prior to next visit it any questions/concerns arise. 07/14/2024 Anemia due to vitamin B12 deficiency, unspecified B12 deficiency type (ICD-10 - D51.9) #Obesity: Patient has had a discussion with her surgeon (Dr. Chen, [facility]) who agrees she needs medical weight loss management and Contrave is a good start. We discussed that the goal of Contrave is to suppress cravings and curb appetite to the point where she is eating a significant amount less calories. Discussed that the calories she will be consuming should be low in carbohydrates and fats. She is also aware that, as her knees permit, she should be walking 8000-10,000 steps per day. Educated on potential side effects of Contrave including nausea and headache. I will see here in 1 month for weight management 01/17/22: BMI 42.6 weight 256. On Contrave, had some difficulty obtaining, required to go through speciality pharmacy. Reports drastic improvement of cravings. Will attempt resubmission for insurance coverage given pt BMI/risk factors. 03/03/22: BMI 42 and weight 256. Continue Contrave. Reports she has been inconsistent with taking it. States it does help her cravings. She has not been as active. Given holidays, reports she has made poor food choices. Encouraged continued exercise. Pulled back, will given Flexeril. may need prednisone if doesn't improve. 05/26/22: BMI 43 weight 261. Contrave not suppressing appetite or cravings. Has been going to gym. Will submit for Wegovy. Discussed s/e and administration as well as protein intake. Recommend seca scale at next visit. 06/29/22: BMI 44, weight 266. Wegovy given today first dose. See above. 08/10/22: Weight 262.9lbs BMI 43.74 Patient lost 3 pounds currently on Wegovy 0.25mg subq weekly on her second box first week would like to finish out box and then increase dose will increase to 0.5mg subq/weekly 12/07/22: BMI 44, Weight 266. Wegovy denied for PA, due to nto losing enough. Encouraged exercise, eating appropriately, and start Wellbutrin 02/12: BMI 44, Weight 266. Will trial Zepbound 03/26/23: Zepbound denied. Paper Rx given for Wegovy 0.25 mg subcu weekly., then for 0.5 mg. 05/21/23: BMI 43, Weight 275 lbs. Unable to find Wegovy. Given Ozempic sample, to transition to Wegovy. Pt unable to afford compounded. Needs to increase protein intake. 07/17/23: BMI 45, Weight 271. Will increase Wegovy 1.7 mg subcu weekly. Need to add protein and more exercise. Reports she felt like Ozempic worked better. She states she is due for her CPE. Denies constipation. Reports mild GERD. Lays down frequently after eating. 10/17/2023: BMI 42.8, weight 257lbs. Patient congratulated on progress. Taking Wegovy 2.4 mg subcutaneously weekly in addition to Wellbutrin 150 mg daily with adequate appetite suppression and craving control. Denies known side effects. SECA reviewed, reveals fat loss with maintained skeletal muscles. Patient is encouraged to maintain lifestyle changes including making healthy diet choices and cooperating regular physical activity into her routine. 12/31/23: BMI 41, Weight 248 lbs. Continue Wegovy 2.4 mg subcu weekly. Congratulated on efforts. Re-encouraged 100 gm of protein and resistance trianing. 02/14/24: BMI 40, Weifht 245 lb. Will attempt tochange to Zepound 7.5 mg subcu weekly, as she has kind of become stagnant despite adequate exercise onf Wegovy 2.4 mg. Will subtmit PA. Pt aware that there is no lateral dosing between the two medicaiton. Educated on MOA, side effects and storage. 04/01/24: BMI 40, Weight 243. Zepbound was too expensive. Resume Wegovy 2.4 mg subcu weekly, increase wellbutrin to 300 mg po daily. Intentional exercise, and increase protein intake. 05/19/24: BMI 39, Weight 235. Continue Wegovy 2.4 mg subcu weekly. Continue adequate protein intake. 07/14/24: BMI 38, Weight 231. Wegovy 2.4 mg subcu weekly. # R knee pain. Saw [facility], had steroid injection with improvement of sx. Known severe OA, will knee total joint replacement #Sleep apnea: Inconsistency wearing CPAP. Wears it more often when she notices more snoring. Educated that she should try her best to be more consistent, as untreated sleep apnea is a common cause of poorly controlled hypertension and other adverse health outcomes. # HTN> Resume antihypertensive Total time spent with pt was 30 minutes, with over half being face to face counselling. Medication being prescribed under obesity medicine certified MD, Dr. Fab Salguero Case discussed with collaborating physician Minnie Salguero who reviewed the assessment and plan. Chart, medications, labs, vital signs reviewed. Dictation was accomplished with the use of [employer] voice recognition software, prone to medical misidentifications and grammatical errors. This is unintentional and the practitioner does try to identify and correct these, but some could still be present. Please do not hesitate to contact practitioner for clarification. All questions answered to patients satisfaction. Patient verbalized understanding of diagnosis and treatments explained. To call sooner prior to next visit it any questions/concerns arise. Plan Of Treatment Pending Test Test Name Order Date Echocardiogram 08/26/2021 Echocardiogram 10/10/2024 Mammogram 10/14/2020 Bone Density 10/14/2020 Ultrasound : Lower Extremity, right 04/06 25OH VITAMIN D 09/13/2020 CBC (COMPLETE BLOOD COUNT) 09/13/2020 COMPREHENSIVE METABOLIC PANEL 09/13/2020 HEMOGLOBIN A1C 09/13/2020 INSULIN 09/13/2020 LIPID PANEL 09/13/2020 TB CELLULAR BLOOD TEST (TSPOT) URINALYSIS W/REFLEX CULTURE 02/01/2023 UC XR Knee 3 Views RT 04/28/2024 XR Chest 2 Views 08/14/2022 LIPID PANEL, STANDARD 07/17/2023 COMPREHENSIVE METABOLIC PANEL 07/14/2024 COMPREHENSIVE METABOLIC PANEL 07/17/2023 COMPREHENSIVE METABOLIC PANEL 10/10/2024 CBC (INCLUDES DIFF/PLT) 07/14/2024 CBC (INCLUDES DIFF/PLT) 07/17/2023 URINALYSIS, COMPLETE 07/17/2023 URINALYSIS, COMPLETE 07/14/2024 URINALYSIS, COMPLETE 10/17/2021 HEMOGLOBIN A1c 07/17/2023 HEMOGLOBIN A1c 07/14/2024 VITAMIN B12 07/14/2024 T4, FREE 07/17/2023 T4, FREE 10/14/2020 TSH 10/14/2020 TSH 07/17/2023 T3, FREE 07/17/2023 T3, FREE 10/14/2020 VITAMIN D,25-OH,TOTAL,IA 07/17/2023 VITAMIN D,25-OH,TOTAL,IA 07/14/2024 QUANTIFERON TB GOLD PLUS 10/10/2024 QUANTIFERON TB GOLD PLUS 09/13/2020 CT Abdomen Pelvis WO Cont 02/05/2023 TSH+T4F+T3Free 07/14/2024 Next Appt Details Provider Name:JAMES ARNOLD, 12/22/2024 08:00:00 AM, [address], [place], [address], Insurance Providers Payer Name Payer Address Payer Phone Subscriber Number Group Number Insured Name Patient Relationship to Insured Coverage Start Date Coverage End Date [facility] [address] [place] [address] [id number] Elisha Pia Self - patient is the insured Medications Administered Medication Instructions Date of Administration Dosage Notes [facility] B12 INJECTION 04/10/2022 lot# k [id number] Medical (General) History Medical History History ICD Code Nephrolithiasis N20.0 Essential (primary) hypertension I10 Hyperlipidemia, unspecified E78.5 Seasonal allergies J30.2 Obesity (BMI 30-39.9) E66.9 Aortic valve stenosis, etiology of cardi ac valve disease unspecified I35.0 Surgical History Surgery Date(Month/Year) meniscus right knee 12/2016 [facility] 10/31/18 Dr. Barker gastric sleeve 2018 Hospitalization History Reason Date(Month/Year) L pyelonephritis with obstructive uropat menigitis 9 day stay 12/07/2000
--- OUTSIDE RECORDS SUMMARY | 2024-11-12 16:46 | XMS_ITS | Clinical Summary ---
Author Organization [address] [place] [address] [place] [id number] Phone Care Team Providers Care Machinist Job Setter Name Role Phone Fab Salguero MD Primary Care Provider [phone] Surgical History Surgery Date Site/Laterality Comments COLONOSCOPY PROCEDURE: HISTORICAL COLONOSCOPY; COMMENT: no report or results GASTRIC BYPASS PROCEDURE: GASTRIC BYPASS FOR OBESIT Medical History Medical History Date Comments Hypertension 10/10/2018 DX:Hypertension Hyperlipidemia 10/10/2018 DX:Hyperlipidemi a FRIDA (obstructive sleep apnea) 10/10/2018 DX :FRIDA (obstructive sleep apnea) History of herpes zoster 10/10/2018 DX:Hist ory of herpes zoster; COMMENT: 2016 Post herpetic neuralgia Morbid obesity with BMI of 5 0.0-59.9, adult ([facility]/HCC V24, [facility]/HCC V28) 09/11/2018 DX:Morbid obesity wit h BMI of 50.0-59.9, adult ([facility]) Vitamin D deficiency 04/04/2018 DX:Vitamin D deficiency Family History Medical History Relation Name Comments Breast cancer Brother Other cancer Father Pancreatic cancer Mother Relation Name Status Comments Brother Father Mother Social History Tobacco Use Types Packs/Day Years Used Date Smoking Tobacco: Former Smokeless Tobacco: Never Alcohol Use Standard Drinks/Week Comments Yes 0 (1 standard drink = 0.6 oz pur e alcohol) Comments Unknown Sex and Gender Information Value Date Recorded Sex Assigned at Not on file Legal Sex Female 6:23 AM EST Gender Identity Not on file Sexual Orientation Not on file Obstetrics History Last Filed Vital Signs Vital Sign Reading Time Taken Comments Blood Pressure 146/64 10/10/2021 7:10 AM EDT Pulse 59 07/11/2021 8:44 AM EDT Temperature - - Respiratory Rate - - Oxygen Saturation - - Inhaled Oxygen Concentration - - Weight 115 kg (253 lb) 10/10/2021 7:10 AM EDT Height 172.7 cm (5' 8 ) 10/10/2021 7:10 AM EDT Body Mass Index 38.47 10/10/2021 7:10 AM EDT Plan of Treatment Upcoming Encounters Date Type Department Care Team (Late st Contact Info) Description 01/09/2025 7:00 AM EST Ancillary Procedure [facility] [address] [facility] [address] [place] [address] Health Maintenance Due Date Last Done Comments Breast Cancer Screening 1960 DTaP,Tdap,and Td Vaccines (1 - Tdap) 08/25/1979 Cervical Cancer Screening: P ap Smear 1981 Pneumococcal Vaccine: 50+ Years (1 of 1 - PCV) 2010 Zoster Vaccines (1 of 2) 2010 Cholesterol Screening (Lipid Panel) 02/05/2022 Colorectal Cancer Screening: Colonoscopy 02/05/2022 HIV Screening 02/05/2022 Hepatitis C Screening 02/05/2022 Social Influencers of Health Screening 02/05/2022 Hypertension/CHF/CAD Annual BMP Blood Test 02/18/2022 Depression Screening 03/05/2024 COVID-19 Vaccine (1 - 2023-2 5 season) 2024 Influenza Vaccine (#1) 2024 RSV Immunization Adult Patients (1 - 1-dose 75+ series) 08/25/2035 MMR Vaccines Completed 05/10/1979, 03/30/1976 HIB Vaccines Aged Out No longer eligi ble based on patient's age to complete this topic HPV Vaccines Aged Out No longer eligi ble based on patient's age to complete this topic Hepatitis A Vaccines Aged Out No long er eligible based on patient's age to complete this topic Hepatitis B Vaccines Aged Out No long er eligible based on patient's age to complete this topic IPV Vaccines Aged Out No longer eligi ble based on patient's age to complete this topic Meningococcal ACWY Vaccine Aged Out N o longer eligible based on patient's age to complete this topic Meningococcal B Vaccine Aged Out No l onger eligible based on patient's age to complete this topic RSV Immunization Patients Under 20 months Aged Out No longer eligible b ased on patient's age to complete this topic Varicella Vaccines Aged Out No longer eligible based on patient's age to complete this topic Insurance [facility] Care Teams Machinist Job Setter Relationship Specialty Start Date End Date Fab Salguero MD PCP - General Internal Medicine 10/03/21
== END 2024-11-12 13:42 | disposition home or self-care (01) ==
LOC: HO.US 13:41
PROVIDERS: PCP Internal Medicine; Visit Provider Nurse Practitioner Family
DX: N20.0 Calculus of kidney (principal)
CPT/HCPCS: 76775

== ENCOUNTER → 2024-11-12 13:42 | Outpatient (BNV) | payer OTHER, SELFPAY | PROVIDERS: PCP Internal Medicine; Visit Provider Radiology Diagnostic Radiology | DX: N20.0 Calculus of kidney (principal) | CPT/HCPCS: 76775 ==

== ENCOUNTER 2024-11-20 08:14 | Outpatient (AMB) | payer OTHER, SELFPAY ==
--- NOTE | 2024-11-20 08:17 | A.OFFVIS_ITS ---
Intake Visit Reasons: 1y/US Intake Note: Patient is present for 1Y/US Urology Medication:NONE Antibiotic Allergy:AMOXICILLIN,AZITHROMYCIN,PENICILLINS Blood Thinner:NONE Thickener Operator Required: No Allergies amoxicillin Allergy (Verified 11/20/24 08:19) Rash azithromycin Allergy (Verified 11/20/24 08:19) Rash Penicillins (PCN) Allergy (Verified 11/20/24 08:19) Rash hydromorphone (From Dilaudid) Adverse Reaction (Verified 11/20/24 08:19) Chills HPI Comments Details: Pia is a pleasant 64-year-old female patient of . She has a past medical history of FRIDA, seasonal allergies, heart murmur, nephrolithiasis, urinary tract infections, hypertension, hypercholesteremia, and pyelonephritis. She presents to the office today for follow-up of her nephrolithiasis. Recent renal imaging results reviewed with the patient today. 11/27 Bilateral kidneys with no calculi, lesions, and or hydronephrosis noted. When asked she reports to be doing and feeling well. She denies any urinary issues or concerns at this time. She denies urinary urgency, urinary frequency, incontinence, nocturia, hematuria, dysuria, foul smelling urine, changes to urinary stream, flank pain, fever, and or chills. She is happy with her current voiding parameters. When asked she reports to be drinking plenty of water daily however, given most recent oral surgery has not been able to. In office urinalysis results reviewed with the patient today. She otherwise offers no other issues or concerns at this time. [facility] Medical History FRIDA (obstructive sleep apnea) Seasonal allergies Heart murmur Renal and ureteric calculus UTI (urinary tract infection) Ureteric stone Severe sepsis Hypertension Pyelonephritis Obstructed, uropathy High cholesterol HTN (hypertension) Surgical History Hx of gastric bypass History of right knee surgery Social History Patient Tobacco Use Status: Former Tobacco user service: No Current occupational status: employed Review of Systems Eyes Reports as per HPI ENT Reports no additional complaints Card Reports as per HPI Resp Reports as per HPI GI Reports no additional complaints Reports as per HPI Musc Reports no additional complaints Neuro Reports no additional complaints Psych Reports no additional complaints Endo Reports no additional complaints James/Lymph Reports no additional complaints Aller/Immun Reports no additional complaints Physical Exam Const General: cooperative, healthy appearing, comfortable, no acute distress, well developed, alert and awake Orientation/consciousness: patient oriented x3 Limitations: no limitations HEENT Head: Yes normal to inspection, Yes normocephalic and Yes atraumatic Ears: hearing grossly normal bilaterally Eyes General: appearance normal, both eyes and all related structures Neck Neck: Yes normal visual inspection and Yes trachea midline Chest Chest palpation & inspection: normal inspection of the chest Resp Effort & Inspection: normal respiratory effort and able to speak in complete sentences Cardio Rate: regular rate GI Inspection: Yes normal to inspection General: Yes no CVA tenderness Back/Spine/Pelvis Back: no CVA tenderness Skin General skin exam: no rashes or lesions noted Neuro General: patient oriented x3 Extrem General: Yes normal to inspection Psych Appearance: grossly normal and well kempt Mental Status: mental status grossly normal Speech and movement: Normal speech and movement present and Clear speech present Affect: normal affect Attitude: cooperative Thought process: Normal thought process present Thought content: Normal thought content present Insight: Good insight present (Psych) Judgement: Good judgement present (Psych) Results AMB Urinalysis, Automated UA Leukoctes 0 Jaylen/uL Last Edit by MEAGAN Wilson on 11/20/24 08:32 UA Nitrite Negative Last Edit by MEAGAN Wilson on 11/20/24 08:32 UA Urobilinogen 0.2 mg/dL Last Edit by MEAGAN Wilson on 11/20/24 08:3 2 UA Protein 0 mg/dL Last Edit by MEAGAN Wilson on 11/20/24 08:32 UA pH 6.0 Last Edit by MEAGAN Wilson on 11/20/24 08:32 UA Blood 0 Alan/uL Last Edit by MEAGAN Wilson on 11/20/24 08:32 UA Specific [place] 1.020 Last Edit by MEAGAN Wilson on 11/20/24 08: 32 UA Ketone Negative Last Edit by MEAGAN Wilson on 11/20/24 08:32 UA Bilirubin 0 mg/dL Last Edit by MEAGAN Wilson on 11/20/24 08:32 UA Glucose 0 mg/dL Last Edit by MEAGAN Wilson on 11/20/24 08:32 Results Reviewed Results Reviewed: Laboratory Last Values Urine pH (Auto) 6.0 11/20/24 08:31 Specific [place] (Auto) 1.020 11/20/24 08:31 Urine Protein (Auto) 0 mg/dL 11/20/24 08:31 Glucose (UA)(Auto) 0 mg/dL 11/20/24 08:31 Urine Ketones (Auto) Negative 11/20/24 08:31 Urine Blood (Auto) 0 Alan/uL 11/20/24 08:31 Urine Nitrite (Auto) Negative 11/20/24 08:31 Urine Bilirubin (Auto) 0 mg/dL 11/20/24 08:31 Urine Urobilinogen (Auto) 0.2 mg/dL 11/20/24 08:31 Leukocyte Esterase (Auto) 0 Jaylen/uL 11/20/24 08:31 Date of Service: 11/12/24 Procedure(s): US renal BI FINDINGS: Right kidney: The right kidney measures 10.5 x 5.2 x 5.6 cm. Renal parenchymal echotexture and thickness are normal. There are no masses. There is no hydronephrosis or renal calculi. Left Kidney: The left kidney measures 9.3 x 5.3 x 4.6 cm. Renal parenchymal echotexture and thickness are normal. There are no masses. There is no hydronephrosis or renal calculi. IMPRESSION: Unremarkable renal ultrasound. Assessment & Plan Assessment & Plan (1) Renal and ureteric calculus: Code(s): N20.2 - Calculus of kidney with calculus of ureter Category: Medical Plan In office urinalysis results reviewed with the patient today; as noted above. Recent renal imaging results reviewed with the patient today; as noted above. Discussed, educated, and stressed the importance of drinking plenty of water daily. Patient denies any bothersome urinary issues or concerns at this time. She reports be happy with current voiding parameters. We discussed surveillance monitoring however patient will call if she needs an appointment per her request Follow-up PRN. Orders: Orders AMB Urinalysis Automated Today Z13.9 - Encounter for screening, unspecified Patient Instructions: The patient had an opportunity to ask questions regarding the treatment plan. All questions were answered. Physical exam, labs, and imaging were discussed and reviewed in detail. As well as risks, benefits, and discussion of treatment choices. No major barriers to understanding were identified. The patient expressed understanding and agreement with the above treatment plan. The patient was made aware they should contact our office by phone for worsening of their current condition, the appearance of new symptoms, or with any questions or concerns. Compliance is encouraged with any medications and follow up testing that is ordered. It is a privilege to be allowed the opportunity to participate in? your urological care.? Again, if you have any questions or concerns If you have any questions or concerns please do not hesitate to contact me. The office is [phone]. This note is constructed using voice recognition software. While every effort has been made to ensure accuracy prior authorization nurse errors may have been included. Yours sincerely, EVELIN Reynoso Coding Level of Care Code Est Pt Level 3 (77402) Diagnoses Renal and ureteric calculus N20.2
--- OUTSIDE RECORDS SUMMARY | 2024-11-20 09:10 | XMS_ITS | Clinical Summary ---
Author Organization [address] [place] [address] [place] [phone] Phone Care Team Providers Care Tours Hostess Name Role Phone Fab Salguero MD Primary Care Provider Surgical History Surgery Date Site/Laterality Comments COLONOSCOPY [...] obesity with BMI of 5 0.0-59.9, adult ([facility] V24, [facility] V28) 09/11/2018 DX:Morbid obesity wit h BMI of 50.0-59.9, adult ([facility]) Vitamin D deficiency 04/04/2018 DX:Vitamin D deficiency [...] Description 01/09/2025 7:00 AM EST Ancillary Procedure [facility] [address] [facility] [address] [place] [id number] Health Maintenance Due Date Last Done Comments [...] patient's age to complete this topic Insurance [facility] Care Teams Tours Hostess Relationship Specialty Start Date End Date Fab Salguero MD PCP - General Internal Medicine 10/03/21
--- OUTSIDE RECORDS SUMMARY | 2024-11-20 09:10 | XMS_ITS | Clinical Summary ---
Author Organization [facility] Address [address] [place] [address] Phone Care Team Providers Care Community Service Organization Director Name Role Phone Pcp, Unknown Primary Care [...] Insurance O O HMO O O O [facility] [place] [place] Address: [place] [phone] Care Teams Community Service Organization Director Relationship Specialty Start Date End Date Pcp, Unknown PCP - General 07/19/22 Additional Source Comments The information contained in this document represents components of the legal health record. It is not the complete legal health record.[facility]
--- OUTSIDE RECORDS SUMMARY | 2024-11-20 09:11 | XMS_ITS | Patient Health Record ---
[facility] Address [address] [place] [address] Care Team Providers Care Resource Center Teacher Name Role Phone JAMES ARNOLD Unavailable [phone] Allergies Allergen (clinical drug ingredient) Drug/Non Drug Allergy documented on EMR Reaction Allergy Type Onset Date Status hydromorphone Dilaudid vomiting Drug Allergy Act natalya amoxicillin Amoxicillin Unknown Drug Allergy Act natalya erythromycin Erythromycin Unknown Drug Allergy A ctive Penicillin Unknown Drug Allergy Active Results Component Value Reference Range Notes Comp. Metabolic Panel (14)-[id number] Reviewed date:08/25/2024 10:42:38 AM Interpretation: Performing Lab:[facility], [address] [place] [address], Phone - [phone], Director - Stephanie Notes/Report: Glucose 76 70-99 [...] IU/L ALT (SGPT) 15 0-32 IU/L TSH+Free [id number] Reviewed date:08/25/2024 10:43:13 AM Interpretation: Performing Lab:[facility] [address], Phone - [phone], Director - Stephanie Notes/Report: TSH 4.430 0.450-4.500 uIU/mL T4,Free(Direct) 0.92 0.82-1.77 ng/dL Vitamin D, 04-Tnwdnxh-[id number] Reviewed date:08/25/2024 10:43:13 AM Interpretation: Performing Lab:[facility], Phone - [phone], Director - Stephanie Notes/Report: Vitamin D, 25-Hydroxy 81.5 30.0-100.0 ng/mL Vitamin D deficiency has been defined by the [place] of Medicine and an Endocrine Society practice guideline as a level of serum 25-OH vitamin D less than 20 ng/mL (1,2). The Endocrine Society went on to further define vitamin D insufficiency as a level between 21 and 29 ng/mL (2). 1. IOM ([place] of Medicine). 2010. Dietary reference intakes for calcium and D. [place]: The National Academies Press. 2. Alison MF, Jose [place], Jen MOURA, et al. Evaluation, treatment, and prevention of vitamin D deficiency: an Endocrine Society clinical practice guideline. JCEM. 2010; 96(7):1911-30. Triiodothyronine (T3), Free- [id number] Reviewed date:08/25/2024 10:43:13 AM Interpretation: Performing Lab:[facility] [address], Phone - [phone], Director - Stephanie Notes/Report: Triiodothyronine (T3), Free 2.3 2.0-4.4 pg/mL CBC With Differential/Platel et-[id number] Reviewed date:08/25/2024 10:42:45 AM Interpretation: Performing Lab:[facility] [address], Phone - [phone], Director - Stephanie Notes/Report: WBC 5.3 3.4-10.8 [...] Immature Grans (Abs) 0.0 0.0-0.1 x10E3/uL Urinalysis, Complete-[id number] Reviewed date:08/25/2024 10:43:13 AM Interpretation: Performing Lab:[facility], [address] [place] [address], Phone - [phone], Director - Stephanie Notes/Report: Specific [place] 1.020 1.005-1.030 pH 6.0 5.0-7.5 Urine-Color Yellow [...] /lpf Bacteria None seen None seen/Few Vitamin [id number] Reviewed date:08/25/2024 10:43:13 AM Interpretation: Performing Lab:[facility], [address] [facility], Phone - [phone], Director - Stephanie Notes/Report: Vitamin B12 237 716-3805 pg/mL Hemoglobin [id number]-[id number] Reviewed date:08/25/2024 10:43:13 AM Interpretation: Performing Lab:[facility] [place], [place] [facility] [place], Phone - [phone], Director - Stephanie Notes/Report: Hemoglobin A1c 4.9 4.8-5.6 % . Prediabetes: 5.7 - 6.4 Diabetes: >6.4 Glycemic control for adults with diabetes: <7.0 Comp. Metabolic Panel (14)-3 [id number] Reviewed date:10/20/2024 08:26:58 AM Interpretation: Performing Lab:[facility], [facility], Phone - [phone], Director - Stephanie Notes/Report: Glucose 83 70-99 [...] 879 Reviewed date:10/20/2024 08:27:01 AM Interpretation: Performing Lab:[facility] [place] [facility], Phone - [phone], Director - Stephanie Notes/Report: QuantiFERON Incubation Incubation [...] Nil Value 0.06 QuantiFERON Mitogen Value >10.00 Reason For Referral Reason rt knee pain Diagnosis 1 Knee pain (M25.569) Referral Organization [facility] [address] Referring Provider First Name JAMES Referring Provider Last Name CATALINA Referring Provider Speciality Internal M edicine Referred Provider Specialty Orthopedic S urgery Clinical Notes [email or web address] 0 04/28/2024 11:20:46 AM >faxed with Paradine form to [facility] at [phone], Yrn Dorantes 06/12/2024 02:44:18 PM > The [...] Active Lidocaine 5 % APPLY 1 PATCH INSIGHTS STRATEGIST ALLY ONCE A DAY REMOVE AFTER 12 [...] Status W/U Status Risk Notes Problem Hypothyroidism (95855517) Hypothyroidism, unspecified (E03.9) Active confirmed Problem Vitamin D deficiency (85947378) Vitamin D deficiency, unspecified (E55.9) Active confirmed Problem Essential hypertension (41985093) Essential (primary) hypertension (I10) Active confirmed Problem Calculus of kidney with calculus of ureter (933285745) Calculus of kidney with calculus of ureter (N20.2) Active confirmed Problem Diabetes mellitus screening (568294000) Encounter for screening for diabetes mellitus (Z13.1) Active confirmed Problem Screening for osteoporosis (828310848) Encounter for screening for osteoporosis (Z13.820) Active confirmed Problem Morbid obesity (630535684) Morbid obesity (E66.01) Active confirmed Problem Hyperlipidaemia (63678663) Hyperlipidemia, unspecified hyperlipidemia type (E78.5) Active confirmed Problem Hypothyroidism (83068280) Hypothyroidism, unspecified type (E03.9) Active confirmed Problem Aortic valve disorder (1627824) Aortic valve stenosis, etiology of cardiac valve disease unspecified (I35.0) Active confirmed Problem Annual health maintenance examination (50449888) Annual physical exam (Z00.00) Active confirmed Problem Vitamin D deficiency (99600437) Vitamin D deficiency (E55.9) Active confirmed Problem Screening for malignant neoplasm of breast (754556835) Breast cancer screening by mammogram (Z12.31) Active confirmed Problem Obstructive sleep apnea syndrome (69359875) FRIDA (obstructive sleep apnea) (G47.33) Active confirmed Problem Diabetes mellitus screening (840411594) Diabetes mellitus screening (Z13.1) Active confirmed Problem Nephrolithiasis (10387498) Nephrolithiasis (N20.0) Active confirmed Problem Body mass index 40+ - morbidly obese (197812946) BMI 40.0-44.9, adult (Z68.41) Active confirmed Problem Obese class II (468759483886157) BMI 37.0-37.9, adult (Z68.37) Active confirmed Problem Dyslipidemia (390637663) Dyslipidemia (E78.5) Active confirmed Problem 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 Problem Obese class II (148564185108116) BMI 39.0-39.9,adult (Z68.39) Active confirmed Problem Vitamin B>12< deficiency anaemia (88130042) Anemia due to vitamin B12 deficiency, unspecified B12 deficiency type (D51.9) Active confirmed Problem Body mass index 40+ - severely obese (420245175) BMI 45.0-49.9, adult (Z68.42) Active confirmed Problem Body mass index 40+ - severely obese (172959903) Body mass index [BMI] 40.0-44.9, adult (Z68.41) Active confirmed Problem Obesity (017022699) Obesity (E66.9) Active confirmed Vital Signs Heart Rate 70 /min 10/10/2024 Oximetry 99 % 10/10/2024 Blood pressure diastolic 64 mm Hg 10/10/2024 Height 65 in 10/10/2024 Blood pressure systolic 116 mm Hg 10/10/2024 Weight 222.8 lbs 10/10/2024 BMI 37.07 kg/m2 10/10/2024 Encounters Encounter Location Date Provider Diagnosis [facility] [address] [place] [address] 12/31/2023 JAMES ARNOLD Morbid obesity E66.0 1 ; BMI 40.0-44.9, adult Z68.41 ; FRIDA (obstructive sleep apnea) G47.33 ; Dyslipidemia E78.5 and Essential (primary) hypertension I10 [facility] [address] 02/14/2024 JAMES CATALINA Morbid obesity E66.0 1 ; BMI 40.0-44.9, adult Z68.41 ; FRIDA (obstructive sleep apnea) G47.33 ; Dyslipidemia E78.5 and Essential (primary) hypertension I10 [facility] [address] 04/01/2024 JAMES CATALINA Morbid obesity E66.0 1 ; BMI 40.0-44.9, adult Z68.41 ; FRIDA (obstructive sleep apnea) G47.33 ; Dyslipidemia E78.5 and Essential (primary) hypertension I10 [facility] [address] 04/24/2024 JAMES CATALINA Morbid obesity E66.0 1 ; Knee pain M25.569 ; BMI 40.0-44.9, adult Z68.41 ; FRIDA (obstructive sleep apnea) G47.33 ; Dyslipidemia E78.5 and Essential (primary) hypertension I10 [facility] [address] 05/19/2024 JAMES CATALINA Obesity E66.9 ; BMI 39.0-39.9,adult Z68.39 ; FRIDA (obstructive sleep apnea) G47.33 ; Dyslipidemia E78.5 ; Essential (primary) hypertension I10 and Right knee pain, unspecified chronicity M25.[address] [address] 07/14/2024 JAMES CATALINA Obesity E66.9 ; BMI 39.0-39.9,adult Z68.39 ; FRIDA (obstructive sleep apnea) G47.33 ; Dyslipidemia E78.5 ; Essential (primary) hypertension I10 ; Annual physical exam Z00.00 ; Encounter for screening for diabetes mellitus Z13.1 ; Vitamin D deficiency, unspecified E55.9 ; Hypothyroidism, unspecified type E03.9 and Anemia due to vitamin B12 deficiency, unspecified B12 deficiency type D51.[address] [place] [address] 10/10/2024 JAMES CATALINA Annual physical exam Z00.00 ; Obesity E66.9 ; BMI 37.0-37.9, adult Z68.37 ; FRIDA (obstructive sleep apnea) G47.33 ; Dyslipidemia E78.5 ; JOANN (acute kidney injury) N17.9 ; Depression screen Z13.31 ; Essential (primary) hypertension I10 ; Encounter for examination of blood pressure without abnormal findings Z01.30 and Encounter for immunization Z23 [facility] [address] [place] [address] 12/11/2023 JAMES CATALINA Morbid obesity E66.[address] [facility] [address] [place] [address] 02/14/2024 JAMES CATALINA [facility] [address] [place] [address] 03/03/2024 JAMES CATALINA [facility] [address] [place] [address] 03/03/2024 JAMES CATALINA [facility] [address] [place] [address] 03/10/2024 JAMES CATALINA [facility] [address] [place] [address] 04/28/2024 JAMES CATALINA [facility] [address] [place] [address] 04/28/2024 JAMES CATALINA Knee pain M25.[address] [facility] [address] [place] [address] 05/01/2024 JAMES CATALINA [facility] [address] [place] [address] 07/11/2024 JAMES CATALINA [facility] [address] [place] [address] 07/29/2024 JAMES CATALINA [facility] [address] [place] [address] 10/07/2024 JAMES CATALINA [facility] [address] [place] [address] 10/10/2024 JAMES CATALINA [facility] [address] [place] [address] 11/19/2024 JAMES ARNOLD Assessments Encounter Date Diagnosis (ICD Code) Assessment Notes Treatment Notes Treatment Clinical Notes Section Notes 12/11/2023 Morbid obesity (ICD-10 - E66.01) 12/31/2023 Morbid obesity (ICD-10 - E66.01) #Obesity: Patient has had a discussion with her surgeon (Dr. Chen, [facility]) who agrees she needs medical weight loss [...] Dictation was accomplished with the use of [employer] voice recognition software, prone to medical misidentifications [...] a discussion with her surgeon (Dr. Chen, [facility]) who agrees she needs medical weight loss [...] Dictation was accomplished with the use of [employer] voice recognition software, prone to medical misidentifications [...] a discussion with her surgeon (Dr. Chen, [facility]) who agrees she needs medical weight loss [...] Dictation was accomplished with the use of [employer] voice recognition software, prone to medical misidentifications [...] a discussion with her surgeon (Dr. Chen, [facility]) who agrees she needs medical weight loss [...] Dictation was accomplished with the use of [employer] voice recognition software, prone to medical misidentifications [...] a discussion with her surgeon (Dr. Chen, [facility]) who agrees she needs medical weight loss [...] Dictation was accomplished with the use of [employer] voice recognition software, prone to medical misidentifications [...] a discussion with her surgeon (Dr. Chen, [facility]) who agrees she needs medical weight loss [...] Dictation was accomplished with the use of [employer] voice recognition software, prone to medical misidentifications [...] Dictation was accomplished with the use of [employer] voice recognition software, prone to medical misidentifications [...] Dictation was accomplished with the use of [employer] voice recognition software, prone to medical misidentifications [...] a discussion with her surgeon (Dr. Chen, [facility]) who agrees she needs medical weight loss [...] Dictation was accomplished with the use of [employer] voice recognition software, prone to medical misidentifications [...] a discussion with her surgeon (Dr. Chen, [facility]) who agrees she needs medical weight loss [...] Dictation was accomplished with the use of [employer] voice recognition software, prone to medical misidentifications [...] a discussion with her surgeon (Dr. Chen, [facility]) who agrees she needs medical weight loss [...] Dictation was accomplished with the use of [employer] voice recognition software, prone to medical misidentifications [...] a discussion with her surgeon (Dr. Chen, [facility]) who agrees she needs medical weight loss [...] Dictation was accomplished with the use of [employer] voice recognition software, prone to medical misidentifications [...] log exercise and discussed fitness Apps like [employer] which can help keep log off calories [...] Dictation was accomplished with the use of [employer] voice recognition software, prone to medical misidentifications [...] log exercise and discussed fitness Apps like [employer] which can help keep log off calories [...] Dictation was accomplished with the use of [employer] voice recognition software, prone to medical misidentifications [...] log exercise and discussed fitness Apps like [employer] which can help keep log off calories [...] Dictation was accomplished with the use of [employer] voice recognition software, prone to medical misidentifications [...] a discussion with her surgeon (Dr. Chen, [facility]) who agrees she needs medical weight loss [...] Dictation was accomplished with the use of [employer] voice recognition software, prone to medical misidentifications [...] a discussion with her surgeon (Dr. Chen, [facility]) who agrees she needs medical weight loss [...] Dictation was accomplished with the use of [employer] voice recognition software, prone to medical misidentifications [...] Dictation was accomplished with the use of [employer] voice recognition software, prone to medical misidentifications [...] a discussion with her surgeon (Dr. Chen, [facility]) who agrees she needs medical weight loss [...] Dictation was accomplished with the use of [employer] voice recognition software, prone to medical misidentifications [...] a discussion with her surgeon (Dr. Chen, [facility]) who agrees she needs medical weight loss [...] Dictation was accomplished with the use of [employer] voice recognition software, prone to medical misidentifications [...] a discussion with her surgeon (Dr. Chen, [facility]) who agrees she needs medical weight loss [...] Dictation was accomplished with the use of [employer] voice recognition software, prone to medical misidentifications [...] a discussion with her surgeon (Dr. Chen, [facility]) who agrees she needs medical weight loss [...] Dictation was accomplished with the use of [employer] voice recognition software, prone to medical misidentifications [...] a discussion with her surgeon (Dr. Chen, [facility]) who agrees she needs medical weight loss [...] Dictation was accomplished with the use of [employer] voice recognition software, prone to medical misidentifications [...] a discussion with her surgeon (Dr. Chen, [facility]) who agrees she needs medical weight loss [...] Dictation was accomplished with the use of [employer] voice recognition software, prone to medical misidentifications [...] Dictation was accomplished with the use of [employer] voice recognition software, prone to medical misidentifications [...] a discussion with her surgeon (Dr. Chen, [facility]) who agrees she needs medical weight loss [...] Dictation was accomplished with the use of [employer] voice recognition software, prone to medical misidentifications [...] a discussion with her surgeon (Dr. Chen, [facility]) who agrees she needs medical weight loss [...] Dictation was accomplished with the use of [employer] voice recognition software, prone to medical misidentifications [...] log exercise and discussed fitness Apps like [employer] which can help keep log off calories [...] Dictation was accomplished with the use of [employer] voice recognition software, prone to medical misidentifications [...] log exercise and discussed fitness Apps like [employer] which can help keep log off calories [...] Dictation was accomplished with the use of [employer] voice recognition software, prone to medical misidentifications [...] a discussion with her surgeon (Dr. Chen, [facility]) who agrees she needs medical weight loss [...] Dictation was accomplished with the use of [employer] voice recognition software, prone to medical misidentifications [...] (ICD-10 - E78.5) # R knee pain. Diony obtain 3-4 [...] Dictation was accomplished with the use of [employer] voice recognition software, prone to medical misidentifications [...] a discussion with her surgeon (Dr. Chen, [facility]) who agrees she needs medical weight loss [...] Dictation was accomplished with the use of [employer] voice recognition software, prone to medical misidentifications [...] a discussion with her surgeon (Dr. Chen, [facility]) who agrees she needs medical weight loss [...] Dictation was accomplished with the use of [employer] voice recognition software, prone to medical misidentifications [...] a discussion with her surgeon (Dr. Chen, [facility]) who agrees she needs medical weight loss [...] Dictation was accomplished with the use of [employer] voice recognition software, prone to medical misidentifications [...] a discussion with her surgeon (Dr. Chen, [facility]) who agrees she needs medical weight loss [...] Dictation was accomplished with the use of [employer] voice recognition software, prone to medical misidentifications [...] Dictation was accomplished with the use of [employer] voice recognition software, prone to medical misidentifications [...] a discussion with her surgeon (Dr. Chen, [facility]) who agrees she needs medical weight loss [...] Dictation was accomplished with the use of [employer] voice recognition software, prone to medical misidentifications [...] log exercise and discussed fitness Apps like [employer] which can help keep log off calories [...] Dictation was accomplished with the use of [employer] voice recognition software, prone to medical misidentifications [...] log exercise and discussed fitness Apps like [employer] which can help keep log off calories [...] Dictation was accomplished with the use of [employer] voice recognition software, prone to medical misidentifications [...] a discussion with her surgeon (Dr. Chen, [facility]) who agrees she needs medical weight loss [...] Dictation was accomplished with the use of [employer] voice recognition software, prone to medical misidentifications [...] log exercise and discussed fitness Apps like [employer] which can help keep log off calories [...] Dictation was accomplished with the use of [employer] voice recognition software, prone to medical misidentifications [...] a discussion with her surgeon (Dr. Chen, [facility]) who agrees she needs medical weight loss [...] Dictation was accomplished with the use of [employer] voice recognition software, prone to medical misidentifications [...] a discussion with her surgeon (Dr. Chen, [facility]) who agrees she needs medical weight loss [...] Dictation was accomplished with the use of [employer] voice recognition software, prone to medical misidentifications [...] log exercise and discussed fitness Apps like [employer] which can help keep log off calories [...] Dictation was accomplished with the use of [employer] voice recognition software, prone to medical misidentifications [...] log exercise and discussed fitness Apps like [employer] which can help keep log off calories [...] Dictation was accomplished with the use of [employer] voice recognition software, prone to medical misidentifications [...] a discussion with her surgeon (Dr. Chen, [facility]) who agrees she needs medical weight loss [...] Dictation was accomplished with the use of [employer] voice recognition software, prone to medical misidentifications [...] a discussion with her surgeon (Dr. Chen, [facility]) who agrees she needs medical weight loss [...] Dictation was accomplished with the use of [employer] voice recognition software, prone to medical misidentifications [...] ARNOLD, 12/22/2024 08:00:00 AM, [address], [place], [address], Insurance Providers Payer Name Payer Address Payer Phone Subscriber Number Group Number Insured Name Patient Relationship to Insured Coverage Start Date Coverage End Date [facility] [address] [place] [address] [id number] Pia Tello Self - patient is the insured Medications Administered Medication Instructions Date of Administration Dosage Notes MICC B12 INJECTION 04/10/2022 lot# k [id number] Medical [...] Reason Date(Month/Year) L pyelonephritis with obstructive uropat hy menigitis 9 day stay 12/07/2000
== END 2024-11-20 09:11 | disposition home or self-care (01) ==
LOC: HO.HUSH 08:15
PROVIDERS: PCP Internal Medicine; Visit Provider Nurse Practitioner Family
DX: N20.2 Calculus of kidney with calculus of ureter (principal); Z13.9 Encounter for screening, unspecified
CPT/HCPCS: 99213

== ENCOUNTER → 2024-11-20 08:14 | Outpatient (BNVA) | payer OTHER, SELFPAY | PROVIDERS: PCP Internal Medicine; Visit Provider Nurse Practitioner Family | DX: N20.2 Calculus of kidney with calculus of ureter (principal); N39.0 Urinary tract infection, site not specified; Z13.9 Encounter for screening, unspecified | CPT/HCPCS: 81003 ==